=== PATIENT | female | born 1955 ===

== ENCOUNTER 2018-03-16 14:11 | Inpatient (IN) | payer MEDICARE ==
[2018-03-16 17:08] LABS: Basophils % (Auto) 0.6 % (0.0-1.8); Eosinophils # (Auto) 0.2 K/mm3 (0.0-0.4); Eosinophils % (Auto) 3.7 % (0.0-4.3); Hematocrit 25.7 % (30.3-42.9); Hemoglobin 8.4 gm/dl (10.1-14.3); Lymphocytes % (Auto) 22.6 % (13.4-35.0); Mean Corpuscular HGB Conc 33 % (30-34); Mean Corpuscular Hemoglobin 31 pg (28-32); Mean Corpuscular Volume 94 fl (79-97); Monocytes # (Auto) 0.4 K/mm3 (0.0-0.8); Monocytes % (Auto) 10.3 % (0.0-7.3); Platelet Count 224 K/mm3 (140-440); Red Blood Count 2.75 M/mm3 (3.65-5.03); Red Cell Distribution Width 16.6 % (13.2-15.2)
[2018-03-16 17:14] LABS: Calcium 9.3 mg/dL (8.4-10.2)
[2018-03-16] MEDS ORDERED: ZOFRAN IV PRN (17:22)
[2018-03-16] MEDS ORDERED: PROVENTIL IH PRN (17:22)
[2018-03-16] MEDS ORDERED: TYLENOL PO PRN (17:22)
[2018-03-16] MEDS ORDERED: SODIUM CHLORIDE FLUSH SYRINGE 10 ML IV PRN (17:22)
--- NOTE | 2018-03-16 17:28 | Emergency Department Report ---
ED General Adult HPI - General Chief complaint: High BP Stated complaint: HYPERTENSION Time Seen by Provider: 03/16/18 16:55 Source: EMS Mode of arrival: Stretcher Limitations: No Limitations - History of Present Illness Initial comments: Patient is a 62-year-old asthmatic female past medical history of end-stage renal disease who went to dialysis today but was sent to the emergency department with elevated blood pressure would not improve after 0.3 Catapres. Patient states her only symptom today is just fatigued. Patient is denying any chest pain shortness of breath at this time. Patient is here with her daughter who is in the medical field and is helping the patient give her history. Patient's daughter states that usually when she does get dialysis she is has labs that were sent home with her she does not believe on Tuesday that the patient received full dialysis. - Related Data Allergies Allergy/AdvReac Type Severity Reaction Status Date / Time No Known Allergies Allergy Unverified 03/16/18 15:10 ED Review of Systems ROS: Stated complaint: HYPERTENSION Other details as noted in HPI Comment: All other systems reviewed and negative ED Past Medical Hx - Past Medical History Previous Medical History?: Yes Hx Hypertension: Yes Hx Renal Disease: Yes ([id number]) Additional medical history: Dementia, PVD, Diabetes - Surgical History Past Surgical History?: Yes Additional Surgical History: right chest permcath - Social History Smoking Status: Former Smoker Substance Use Type: Prescribed ED Physical Exam - General Limitations: No Limitations General appearance: alert, in no apparent distress - Head Head exam: Present: atraumatic, normocephalic - Eye Eye exam: Present: normal appearance - ENT ENT exam: Present: mucous membranes moist - Neck Neck exam: Present: normal inspection - Respiratory Respiratory exam: Present: normal lung sounds bilaterally. Absent: respiratory distress, wheezes, rales, rhonchi - Cardiovascular Cardiovascular Exam: Present: regular rate, normal rhythm. Absent: systolic murmur, diastolic murmur, rubs, gallop - GI/Abdominal GI/Abdominal exam: Present: soft, normal bowel sounds. Absent: distended, tenderness, guarding, rebound - Extremities Exam Extremities exam: Present: normal inspection - Back Exam Back exam: Present: normal inspection - Neurological Exam Neurological exam: Present: alert, oriented X3 - Psychiatric Psychiatric exam: Present: normal affect, normal mood - Skin Skin exam: Present: warm, dry, intact, normal color. Absent: rash ED Course Vital Signs 03/16/18 15:27 Temperature 97.5 F L Pulse Rate 68 Respiratory 18 Rate Blood Pressure 187/103 O2 Sat by Pulse 100 Oximetry ED Medical Decision Making - Lab Data Result diagrams: 03/16/18 15:34 03/16/18 15:34 - Medical Decision Making Because of the patient's mild lethargy and the fact that she's missed dialysis at this time. Patient be admitted for probable dialysis as well as blood pressure control. Critical care attestation.: If time is entered above; I have spent that time in minutes in the direct care of this critically ill patient, excluding procedure time. ED Disposition Clinical Impression: Hypertensive urgency, malignant, ESRD (end stage renal disease) Disposition: -01 TO HOME OR SELFCARE Is pt being admited?: Yes Does the pt Need Aspirin: No Condition: Stable Referrals: PRIMARY CARE, [Primary Care Provider] - 3-5 Days
[2018-03-16] MEDS ORDERED: NON-FORMULARY (Lorazepam 1 MG) PO PRN (17:44)
--- NOTE | 2018-03-16 17:48 | History and Physical Report ---
History of Present Illness Chief complaint: she is confused, and could not get dialysis today History of present illness: 62 YO Female with HTN, ESRD on HD(T,R,Sa), DM, Dementia, PVD presents to ED for evaluation. Pt is confused and unable to provide detailed history. Pt history provided by daughter who is at bedside during exam and interview. As per daughter, the patient has become increasingly confused over the past 3 days with persistent symptoms over the same time frame. Pt went to dialysis today but was sent to the emergency department with elevated blood pressure. Pt seen and evaluated in ED and found to have ESRD, Encephalopathy. Pt admitted to medical floor. Nephrology consulted in ED for dialysis. No reports of fever, chills, CP, Palpitations, NVD, Syncope, Trauma, falls, unintentional weight loss , night sweats. Past History Past Medical History: diabetes, ESRD, hypertension, PVD Past Surgical History: Other (Left Ankle, R chest permacath) Social history: single, lives with family. denies: smoking, alcohol abuse, prescription drug abuse Family history: diabetes, hypertension Medications and Allergies Allergies Allergy/AdvReac Type Severity Reaction Status Date / Time No Known Allergies Allergy Verified 03/16/18 17:27 Home Medications Medication Instructions Recorded Confirmed Last Taken Type Aspirin 81 mg PO DAILY 03/16/18 03/16/18 Unknown History Folic Acid 1 mg PO DAILY 03/16/18 03/16/18 Unknown History ISOSORBIDE MONOnitrate 20 mg PO TID 03/16/18 03/16/18 Unknown History LORazepam 1 mg PO Q8HR PRN 03/16/18 03/16/18 Unknown History Melatonin 3 mg PO HS 03/16/18 03/16/18 Unknown History Metoprolol 25 mg PO DAILY 03/16/18 03/16/18 Unknown History NIFEdipine 90 mg PO DAILY 03/16/18 03/16/18 Unknown History Pantoprazole 40 mg PO DAILY 03/16/18 03/16/18 Unknown History Renvela 800 mg PO TID 03/16/18 03/16/18 Unknown History Sertraline 50 mg PO DAILY 03/16/18 03/16/18 Unknown History hydrALAZINE 100 mg PO TID 03/16/18 03/16/18 Unknown History Active Meds: Active Medications Acetaminophen (Tylenol) 650 mg PO Q4H PRN PRN Reason: Pain MILD(1-3)/Fever >100.5/RITTER Albuterol (Proventil) 2.5 mg IH Q4HRT PRN PRN Reason: Shortness Of Breath Miscellaneous Medication (Aspirin) 81 mg PO DAILY TONY Miscellaneous Medication (Folic Acid) 1 mg PO DAILY TONY Miscellaneous Medication (Hydralazine) 100 mg PO TID TONY Miscellaneous Medication (Isosorbide Mononitrate) 20 mg PO TID TONY Miscellaneous Medication (Lorazepam) 1 mg PO Q8HR PRN PRN Reason: Anxiety Miscellaneous Medication (Melatonin) 3 mg PO HS TONY Miscellaneous Medication (Metoprolol) 25 mg PO DAILY TONY Miscellaneous Medication (Nifedipine) 90 mg PO DAILY TONY Miscellaneous Medication (Pantoprazole) 40 mg PO DAILY TONY Miscellaneous Medication (Renvela) 800 mg PO TID TONY Miscellaneous Medication (Sertraline) 50 mg PO DAILY TONY Ondansetron HCl (Zofran) 4 mg IV Q8H PRN PRN Reason: Nausea And Vomiting Sodium Chloride (Sodium Chloride Flush Syringe 10 Ml) 10 ml IV BID TONY Sodium Chloride (Sodium Chloride Flush Syringe 10 Ml) 10 ml IV PRN PRN PRN Reason: LINE FLUSH Review of Systems ROS unobtainable: due to mental status Exam - Constitutional Vitals: Temp Pulse Resp BP Pulse Ox 97.5 F L 68 18 187/103 100 03/16/18 15:27 03/16/18 15:27 03/16/18 15:27 03/16/18 15:27 03/16/18 15:27 General appearance: Present: mild distress - EENT Eyes: Present: PERRL ENT: hearing intact, clear oral mucosa - Neck Neck: Present: supple, normal ROM - Respiratory Respiratory effort: normal Respiratory: bilateral: CTA - Cardiovascular Heart Sounds: Present: S1 & S2. Absent: rub, click - Extremities Extremities: pulses symmetrical, No edema Extremity abnormal: edema Peripheral Pulses: within normal limits - Abdominal General gastrointestinal: Present: soft, non-tender, non-distended, normal bowel sounds Female genitourinary: Present: normal - Integumentary Integumentary: Present: clear, warm, dry - Musculoskeletal Musculoskeletal: generalized weakness - Psychiatric Psychiatric: no intact judgment & insight, no memory intact - Neurologic Neurologic: CNII-XII intact, moves all extremities, no gait normal Results - Labs CBC & Chem 7: 03/16/18 15:34 03/16/18 15:34 Labs: Abnormal lab results 03/16/18 03/16/18 Range/Units 15:34 15:34 WBC 4.2 L (4.5-11.0) K/mm3 RBC 2.75 L (3.65-5.03) M/mm3 Hgb 8.4 L (10.1-14.3) gm/dl Hct 25.7 L (30.3-42.9) % RDW 16.6 H (13.2-15.2) % [place] % (Auto) 10.3 H (0.0-7.3) % Lymph # 1.0 L (1.2-5.4) K/mm3 Sodium 136 L (137-145) mmol/L Chloride 97.6 L (98-107) mmol/L BUN 24 H (7-17) mg/dL Creatinine 9.5 H (0.7-1.2) mg/dL Assessment and Plan - Patient Problems (1) ESRD (end stage renal disease) Current Visit: Yes Status: Acute Plan to address problem: Nephrology consulted for dialysis. strict I/O, monitor uop q shift, avoid nephrotoxic agents. (2) Encephalopathy Current Visit: Yes Status: Acute Plan to address problem: CT Head, neuro checks, supportive care. (3) Diabetes Current Visit: Yes Status: Acute Plan to address problem: ADA diet, insulin, accu check (4) Hypertensive urgency, malignant Current Visit: Yes Status: Acute Plan to address problem: monitor bp q shift, IV hydralazine PRN, resume prehospital antihypertensive therapy, dialysis (5) DVT prophylaxis Current Visit: Yes Status: Acute Plan to address problem: SCD to BLE while in bed
--- NOTE | 2018-03-16 18:19 | Cat Scan Report ---
FINAL REPORT EXAM: CT HEAD/BRAIN WO CON HISTORY: confusion TECHNIQUE: CT head without contrast PRIORS: None. FINDINGS: No acute intra-axial or extra-axial hemorrhage is identified. There is no evidence of midline shift or mass effect. The ventricles and sulci are within normal limits. Robles-white matter differentiation is intact. No acute parenchymal abnormalities seen. Bony calvarium is grossly intact. Visualized portions of the mastoids and paranasal sinuses are unremarkable. IMPRESSION: Negative CT head
[2018-03-16] MEDS ORDERED: ATIVAN PO PRN (18:25)
[2018-03-16 19:47] LABS: Free T4 (Free Thyroxine) 1.28 ng/dL (0.76-1.46)
[2018-03-16] MEDS ORDERED: HYDRALAZINE 100 MG PO SCH (20:00)
[2018-03-16] MEDS ORDERED: RENVELA 800 MG PO SCH (20:00)
[2018-03-16] MEDS ORDERED: ISOSORBIDE MONONITRATE 20 MG PO SCH (20:00)
[2018-03-16] MEDS ORDERED: MELATONIN 3 MG PO SCH (22:00)
[2018-03-16] MEDS: APRESOLINE PO SCH (23:32)
[2018-03-16] MEDS: SODIUM CHLORIDE FLUSH SYRINGE 10 ML IV SCH (23:33)
[2018-03-16] MEDS: MONOKET PO SCH (23:35)
[2018-03-17] MEDS: RENVELA PO SCH ×3 (09:00→18:14)
--- NOTE | 2018-03-17 09:00 | Progress Note ---
Assessment and Plan Assessment and plan: Acute encephalopathy. Etiology may be secondary to hypertensive versus metabolic. Blood pressure is much better control. Patient is to undergo hemodialysis per nephrology. Continue to treat these underlying causes. Consider neurology evaluation. Also, consider MRI or EEG if symptoms persist. CT scan of the head negative. ESRD. Continue hemodialysis per nephrology. Diabetes mellitus type 2. Continue ADA diet, sliding scale insulin and Accu- Cheks. Accelerated hypertension. Improved. Continue home antihypertensive medications and IV hydralazine when necessary. DVT prophylaxis. Continue SCDs. History Interval history: No new issues overnight. Patient is alert and oriented 3. Confusion has resolved. Hospitalist Physical - Constitutional Vitals: Temp Pulse Resp BP Pulse Ox 98.6 F 77 20 145/84 97 03/17/18 05:24 03/17/18 05:24 03/17/18 05:24 03/17/18 07:43 03/17/18 05:24 General appearance: Present: no acute distress - EENT Eyes: Present: PERRL, EOM intact ENT: hearing intact, clear oral mucosa, dentition normal - Neck Neck: Present: supple, normal ROM - Respiratory Respiratory effort: normal Respiratory: bilateral: CTA - Cardiovascular Rhythm: regular Heart Sounds: Present: S1 & S2. Absent: gallop, rub - Extremities Extremities: no ischemia, No edema, Full ROM - Abdominal General gastrointestinal: soft, non-tender, non-distended, normal bowel sounds - Integumentary Integumentary: Present: clear, warm, dry - Neurologic Neurologic: CNII-XII intact, moves all extremities Results - Labs CBC & Chem 7: 03/16/18 15:34 03/16/18 15:34 Labs: Laboratory Last Values WBC 4.2 K/mm3 (4.5-11.0) L 03/16/18 15:34 RBC 2.75 M/mm3 (3.65-5.03) L 03/16/18 15:34 Hgb 8.4 gm/dl (10.1-14.3) L 03/16/18 15:34 Hct 25.7 % (30.3-42.9) L 03/16/18 15:34 MCV 94 fl (79-97) 03/16/18 15:34 MCH 31 pg (28-32) 03/16/18 15:34 MCHC 33 % (30-34) 03/16/18 15:34 RDW 16.6 % (13.2-15.2) H 03/16/18 15:34 Plt Count 224 K/mm3 (140-440) 03/16/18 15:34 Lymph % (Auto) 22.6 % (13.4-35.0) 03/16/18 15:34 [place] % (Auto) 10.3 % (0.0-7.3) H 03/16/18 15:34 Eos % (Auto) 3.7 % (0.0-4.3) 03/16/18 15:34 Baso % (Auto) 0.6 % (0.0-1.8) 03/16/18 15:34 Lymph # 1.0 K/mm3 (1.2-5.4) L 03/16/18 15:34 [place] # 0.4 K/mm3 (0.0-0.8) 03/16/18 15:34 Eos # 0.2 K/mm3 (0.0-0.4) 03/16/18 15:34 Baso # 0.0 K/mm3 (0.0-0.1) 03/16/18 15:34 Seg Neutrophils % 62.8 % (40.0-70.0) 03/16/18 15:34 Seg Neutrophils # 2.6 K/mm3 (1.8-7.7) 03/16/18 15:34 Sodium 136 mmol/L (137-145) L 03/16/18 15:34 Potassium 4.5 mmol/L (3.6-5.0) 03/16/18 15:34 Chloride 97.6 mmol/L (98-107) L 03/16/18 15:34 Carbon Dioxide 25 mmol/L (22-30) 03/16/18 15:34 Anion Gap 18 mmol/L 03/16/18 15:34 BUN 24 mg/dL (7-17) H 03/16/18 15:34 Creatinine 9.5 mg/dL (0.7-1.2) H 03/16/18 15:34 Estimated GFR 4 ml/min 03/16/18 15:34 BUN/Creatinine Ratio 3 % 03/16/18 15:34 Glucose 91 mg/dL (65-100) 03/16/18 15:34 Calcium 9.3 mg/dL (8.4-10.2) 03/16/18 15:34 TSH 1.080 mlU/mL (0.270-4.200) 03/16/18 17:50 Free T4 1.28 ng/dL (0.76-1.46) 03/16/18 17:50
[2018-03-17] MEDS: APRESOLINE PO SCH ×3 (09:15→21:16)
[2018-03-17] MEDS: MONOKET PO SCH ×3 (09:15→21:16)
[2018-03-17] MEDS ORDERED: NON-FORMULARY (Metoprolol 25 MG) PO SCH (10:00)
[2018-03-17] MEDS ORDERED: NON-FORMULARY (Folic Acid 1 MG) PO SCH (10:00)
[2018-03-17] MEDS ORDERED: NON-FORMULARY (Aspirin 81 MG) PO SCH (10:00)
[2018-03-17] MEDS ORDERED: NIFEDIPINE 90 MG PO SCH (10:00)
[2018-03-17] MEDS ORDERED: NON-FORMULARY (Pantoprazole 40 MG) PO SCH (10:00)
[2018-03-17] MEDS ORDERED: SERTRALINE 50 MG PO SCH (10:00)
[2018-03-17] MEDS ORDERED: NACL 0.9% 100 ML IV PRN (10:41)
--- NOTE | 2018-03-17 10:44 | Consultation ---
History of Present Illness - Reason for Consult Consult date: 03/17/18 end stage renal disease - History of Present Illness Patient is a 62-year-old female w/ ESRD on HD TTS who presented to the ED from dialysis clinic due to significanly elevated blood pressure which did not improve with Clonidine. Patient has been admitted for further management. She is seen on dialysis and denies chest pain, SOB. Past History Past Medical History: diabetes, ESRD, hypertension, PVD Past Surgical History: Other (Left Ankle, R chest permacath) Social history: single, lives with family. denies: smoking, alcohol abuse, prescription drug abuse Family history: diabetes, hypertension Medications and Allergies Allergies Allergy/AdvReac Type Severity Reaction Status Date / Time No Known Allergies Allergy Verified 03/16/18 17:27 Home Medications Medication Instructions Recorded Confirmed Last Taken Type Aspirin 81 mg PO DAILY 03/16/18 03/16/18 Unknown History Folic Acid 1 mg PO DAILY 03/16/18 03/16/18 Unknown History ISOSORBIDE MONOnitrate 20 mg PO TID 03/16/18 03/16/18 Unknown History LORazepam 1 mg PO Q8HR PRN 03/16/18 03/16/18 Unknown History Melatonin 3 mg PO HS 03/16/18 03/16/18 Unknown History Metoprolol 25 mg PO DAILY 03/16/18 03/16/18 Unknown History NIFEdipine 90 mg PO DAILY 03/16/18 03/16/18 Unknown History Pantoprazole 40 mg PO DAILY 03/16/18 03/16/18 Unknown History Renvela 800 mg PO TID 03/16/18 03/16/18 Unknown History Sertraline 50 mg PO DAILY 03/16/18 03/16/18 Unknown History hydrALAZINE 100 mg PO TID 03/16/18 03/16/18 Unknown History Active Meds: Active Medications Acetaminophen (Tylenol) 650 mg PO Q4H PRN PRN Reason: Pain MILD(1-3)/Fever >100.5/RITTER Albuterol (Proventil) 2.5 mg IH Q4HRT PRN PRN Reason: Shortness Of Breath Aspirin (Baby Aspirin) 81 mg PO QDAY [facility] Folic Acid (Folvite) 1 mg PO DAILY [facility] Hydralazine HCl (Apresoline) 100 mg PO TID [facility] Last Admin: 06/29/18 09:15 Dose: 100 mg Isosorbide Mononitrate (Monoket) 20 mg PO TID [facility] Last Admin: 03/17/18 09:15 Dose: 20 mg Lorazepam (Ativan) 1 mg PO Q8H PRN PRN Reason: Agitation Metoprolol Tartrate (Lopressor) 25 mg PO DAILY [facility] Nifedipine (Procardia Xl) 90 mg PO QDAY [facility] Ondansetron HCl (Zofran) 4 mg IV Q8H PRN PRN Reason: Nausea And Vomiting Pantoprazole Sodium (Protonix) 40 mg PO DAILY [facility] Sertraline HCl (Zoloft) 50 mg PO QDAY [facility] Sevelamer Carbonate (Renvela) 800 mg PO AC [facility] Last Admin: 03/17/18 09:00 Dose: Not Given Sodium Chloride (Sodium Chloride Flush Syringe 10 Ml) 10 ml IV BID [facility] Last Admin: 03/16/18 23:33 Dose: 10 ml Sodium Chloride (Sodium Chloride Flush Syringe 10 Ml) 10 ml IV PRN PRN PRN Reason: LINE FLUSH Review of Systems All systems: negative Exam - Vital Signs Vital signs: Vital Signs Temp Pulse Resp BP Pulse Ox 97.5 F L 68 18 187/103 100 03/16/18 15:27 03/16/18 15:27 03/16/18 15:27 03/16/18 15:27 03/16/18 15:27 - General Appearance General appearance: well-developed, well-nourished EENT: ATNC Respiratory: Clear to Ascultation Heart: regular, S1S2 Gastrointestinal: Present: normal. Absent: tenderness, distended Integumentary: no rash, warm and dry Musculoskeletal: Present: other (no edema) Psychiatric: cooperative Results - Lab Results 03/16/18 15:34 03/16/18 15:34 Most recent lab results Calcium 9.3 mg/dL (8.4-10.2) 03/16/18 15:34 Assessment and Plan Impression * End stage renal disease * Hypertension, uncontrolled * Anemia secondary to ESRD * Secondary hyperparathyroidism Plan: * Hemodialysis today - UF as tolerated * Resume TTS schedule tomorrow * Continue current antiHTN medications - BP elevated this afternoon as patient has not received mediations * Hold Epogen for now due to uncontrolled HTN * Renal diet * Binders with meals
[2018-03-17] MEDS: BABY ASPIRIN PO SCH (11:36)
[2018-03-17] MEDS: FOLVITE PO SCH (11:37)
[2018-03-17] MEDS: LOPRESSOR PO SCH ×2 (11:37→18:14)
[2018-03-17] MEDS: PROCARDIA XL PO SCH ×2 (11:37→18:14)
[2018-03-17] MEDS: PROTONIX PO SCH (11:39)
[2018-03-17] MEDS: SODIUM CHLORIDE FLUSH SYRINGE 10 ML IV SCH ×2 (11:39→21:16)
[2018-03-17] MEDS: ZOLOFT PO SCH (11:41)
[2018-03-17] MEDS ORDERED: APRESOLINE IV PRN (12:41)
[2018-03-17] MEDS ORDERED: NACL 0.9 (PRIMING MACHINE ONLY DIALYSIS) MC ONE (12:58)
[2018-03-18] MEDS: MONOKET PO SCH (08:25)
[2018-03-18] MEDS: RENVELA PO SCH ×2 (08:25→12:57)
[2018-03-18] MEDS: APRESOLINE PO SCH (08:25)
--- NOTE | 2018-03-18 10:24 | Discharge Summary ---
Providers - Providers Date of Admission: 03/16/18 17:22 Date of discharge: 03/18/18 Attending physician: HARPER OSHEA 03/17/18 09:41 Consult to Physician [CONS] Routine Comment: CALLED-COMPLETED LINDA Consulting Provider: DUNIA GOMEZ Physician Instructions: Followed by . Reason For Exam: ESRD Primary care physician: ASSESSOR Hospitalization Reason for admission: AMS Condition: Stable Hospital course: 62 YO Female with HTN, ESRD on HD(T,R,Sa), DM, Dementia, PVD presented to ED with confusion. 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 Pt went to dialysis but was sent to the emergency department with elevated blood pressure. Pt was seen and evaluated in ED and found to have ESRD , Encephalopathy. Pt admitted to medical floor. Nephrology consulted in ED for dialysis. Etiology was likely secondary to hypertensive versus metabolic. Symptoms resolved wi9th improvement of BP and after HD. The patient is felt to have received maximal hospital benefit and will be discharged home. Dedicated discharge time 32 minutes. Disposition: DC-01 TO HOME OR SELFCARE Time spent for discharge: 32 - Discharge Diagnoses (1) DVT prophylaxis Status: Acute (2) Diabetes Status: Acute (3) ESRD (end stage renal disease) Status: Acute (4) Encephalopathy Status: Acute (5) Hypertensive urgency, malignant Status: Acute Core Measure Documentation - Palliative Care Palliative Care/ Comfort Measures: Not Applicable - Core Measures Any of the following diagnoses?: none Exam - Constitutional Vitals: Temp Pulse Resp BP Pulse Ox 98.4 F 73 20 157/95 94 03/18/18 05:19 03/18/18 05:19 03/18/18 05:19 03/18/18 05:19 03/18/18 05:19 General appearance: Present: no acute distress, well-nourished - EENT Eyes: Present: PERRL ENT: hearing intact, clear oral mucosa - Neck Neck: Present: supple, normal ROM - Respiratory Respiratory effort: normal Respiratory: bilateral: CTA - Cardiovascular Heart Sounds: Present: S1 & S2. Absent: rub, click - Extremities Extremities: pulses symmetrical, No edema Peripheral Pulses: within normal limits - Abdominal General gastrointestinal: Present: soft, non-tender, non-distended, normal bowel sounds Female genitourinary: Present: normal - Integumentary Integumentary: Present: clear, warm, dry - Musculoskeletal Musculoskeletal: gait normal, strength equal bilaterally - Psychiatric Psychiatric: appropriate mood/affect, intact judgment & insight - Neurologic Neurologic: CNII-XII intact, moves all extremities Plan Activity: no restrictions Weight Bearing Status: Full Weight Bearing Diet: diabetic, renal Follow up with: PRIMARY CARE, [Primary Care Provider] - 3-5 Days ELO STAHL MD [Staff Physician] - 7 Days Prescriptions: Aspirin 81 mg PO DAILY #30 Folic Acid 1 mg PO DAILY #30 hydrALAZINE 100 mg PO TID #90 ISOSORBIDE MONOnitrate 20 mg PO TID #90 Metoprolol 25 mg PO DAILY #30 NIFEdipine 90 mg PO DAILY #30
[2018-03-18] MEDS: BABY ASPIRIN PO SCH (10:27)
--- NOTE | 2018-03-18 10:53 | Progress Note ---
Subjective Interval history: Patient was seen today for follow-up on multiple renal related issues Events of this hospitalization noted Patient denies having any chest pain pressure or shortness of breath Vitals labs intake output medications were reviewed Social history: Reviewed Allergies: Reviewed Family history: Reviewed Physical examination HEENT: Oral mucosa moist no pallor or icterus Neck: Supple no JVD Chest: Clear to auscultation anteriorly CVS: Regular rate and rhythm S1 and S2 heard Abdomen: Soft nontender no suprapubic masses no organomegaly appreciable Extremity: Dry skin less than 1+ peripheral edema Musculoskeletal: No joint effusion noted in knees and ankle Neurological: Alert awake Dermatology: No petechial rashes Psychiatry: No evidence of any agitation and aggression noted Assessment and plan End-stage renal disease: Currently in maintenance hemodialysis, tolerating dialysis treatment well Uncontrolled hypertension: Counseled and educated discussed about her compliance medications, she will need a follow-up appointment in the office, upon discharge to monitor her blood pressure also needs to monitor her blood pressure from home Consequences of untreated hypertension were discussed with patient in terms of adverse cardiovascular and cerebrovascular events including Anemia in end-stage renal disease to monitor and follow, at the dialysis clinic patient has been adequately counseled and educated regarding all the dialysis related issues advised to educate herself Patient was adequately counseled and educated regarding multiple renal related issues Pertinent lab findings were discussed with patient, patient does exhibit good understanding of renal issues We'll continue to follow and make recommendation from renal standpoint Objective - Vital Signs Vital signs: Vital Signs - 12hr 03/17/18 03/18/18 23:17 05:19 Temperature 99.0 F 98.4 F Pulse Rate 77 73 Respiratory 20 20 Rate Blood Pressure 132/78 157/95 O2 Sat by Pulse 98 94 Oximetry - Lab 03/16/18 15:34 03/16/18 15:34 Most recent lab results Calcium 9.3 mg/dL (8.4-10.2) 03/16/18 15:34
[2018-03-18] MEDS: FOLVITE PO SCH (11:07)
[2018-03-18] MEDS: PROCARDIA XL PO SCH (11:07)
[2018-03-18] MEDS: LOPRESSOR PO SCH (11:07)
[2018-03-18] MEDS: PROTONIX PO SCH (11:08)
[2018-03-18] MEDS: ZOLOFT PO SCH (11:08)
[2018-03-18] MEDS: SODIUM CHLORIDE FLUSH SYRINGE 10 ML IV SCH (11:09)
[2018-03-18 14:07] VITALS: BP 172/106
== END 2018-03-18 13:00 | disposition home or self-care (01) | DRG 77 ==
LOC: ED 14:11 → 3A 17:22
PROVIDERS: ADMIT Internal Medicine; ATTEND Hospitalist
PROC: 5A1D70Z Performance of Urinary Filtration, Intermittent, Less than 6 Hours Per Day (ICD-10-PCS; principal; 2018-03-17)
DX: I67.4 Hypertensive encephalopathy (principal); N18.6 End stage renal disease; I12.0 Hypertensive chronic kidney disease with stage 5 chronic kidney disease or end stage renal disease; N25.81 Secondary hyperparathyroidism of renal origin; D63.1 Anemia in chronic kidney disease; E11.22 Type 2 diabetes mellitus with diabetic chronic kidney disease; I16.0 Hypertensive urgency; Z82.49 Family history of ischemic heart disease and other diseases of the circulatory system; Z95.828 Presence of other vascular implants and grafts; Z79.82 Long term (current) use of aspirin; Z99.2 Dependence on renal dialysis; Z79.84 Long term (current) use of oral hypoglycemic drugs
CPT/HCPCS: 36415; 70450; 80048; 84439; 84443; 85025; J0360; J7030

== ENCOUNTER 2018-04-25 16:33 | Emergency (ER) | payer MEDICARE ==
[2018-04-25 17:10] VITALS: BP 176/84
== END 2018-04-25 17:20 | disposition left against medical advice (07) ==
LOC: ED 16:33
DX: R03.0 Elevated blood-pressure reading, without diagnosis of hypertension (principal); Z53.21 Procedure and treatment not carried out due to patient leaving prior to being seen by health care provider

== ENCOUNTER 2019-01-15 19:35 | Inpatient (IN) | payer MEDICARE ==
[2019-01-15] MEDS ORDERED: TRIDIL DRIP 50MG/250ML 50 MG/250 ML BOTTLE IV ONE (20:24)
--- NOTE | 2019-01-15 20:25 | Emergency Department Report ---
ED Shortness of Breath HPI - General Chief Complaint: Dyspnea/Respdistress Stated Complaint: AMINATA Time Seen by Provider: 01/15/19 20:19 Source: patient, EMS (ems notes not available at time of chart dictation), RN notes reviewed Mode of arrival: Stretcher Limitations: Physical Limitation - History of Present Illness Initial Comments: Primary care Dr.: Dr. Jarad Lanier Nephrology: Dr. Lomeli Past medical history: End-stage renal disease, on dialysis, diabetes, hypertension, peripheral vascular disease, right upper extremity graft This is a pleasant 63-year-old female who resides in a local halfway, who missed dialysis for 2 days, who presents to the emergency room with painless shortness of breath. Symptoms constant, worse with physical exertion, decreased with rest and lying flat. Patient denies headache, neck pain, chest pain, abdominal pain, urinary symptoms, focal extremity weakness, numbness. She reports her symptoms are similar to prior incidents when she's has missed dialysis MD Complaint: shortness of breath -: Gradual, days(s) Consistency: other Improves With: other - Related Data Home Medications Medication Instructions Recorded Confirmed Last Taken LORazepam 1 mg PO Q8HR PRN 03/16/18 03/16/18 Unknown Melatonin 3 mg PO HS 03/16/18 03/16/18 Unknown Pantoprazole 40 mg PO DAILY 03/16/18 03/16/18 Unknown Renvela 800 mg PO TID 03/16/18 03/16/18 Unknown Sertraline 50 mg PO DAILY 03/16/18 03/16/18 Unknown Previous Rx's Medication Instructions Recorded Last Taken Type Aspirin 81 mg PO DAILY #30 03/18/18 Unknown Rx Aspirin [Aspirin BABY CHEW TAB] 81 mg PO QDAY tab.chew 03/18/18 Unknown Rx Folic Acid 1 mg PO DAILY #30 03/18/18 Unknown Rx Folic Acid [Folvite] 1 mg PO DAILY tablet 03/18/18 Unknown Rx ISOSORBIDE MONOnitrate 20 mg PO TID #90 03/18/18 Unknown Rx ISOSORBIDE MONOnitrate [Monoket] 20 mg PO TID tablet 03/18/18 Unknown Rx LORazepam [Ativan] 1 mg PO Q8H PRN tablet 03/18/18 Unknown Rx Metoprolol 25 mg PO DAILY #30 03/18/18 Unknown Rx Metoprolol [Lopressor TAB] 25 mg PO DAILY tablet 03/18/18 Unknown Rx NIFEdipine 90 mg PO DAILY #30 03/18/18 Unknown Rx NIFEdipine XL [Procardia Xl] 90 mg PO QDAY tablet 03/18/18 Unknown Rx Sertraline [Zoloft] 50 mg PO QDAY tablet 03/18/18 Unknown Rx Sevelamer Carbonate [Renvela] 800 mg PO AC tablet 03/18/18 Unknown Rx Sodium Chloride 0.9% Int [Sodium 10 ml IV BID syringe 03/18/18 Unknown Rx Chloride Flush Syringe 10 ml] Sodium Chloride 0.9% Int [Sodium 10 ml IV PRN PRN syringe 03/18/18 Unknown Rx Chloride Flush Syringe 10 ml] hydrALAZINE 100 mg PO TID #90 03/18/18 Unknown Rx hydrALAZINE [Apresoline TAB] 100 mg PO TID tab 03/18/18 Unknown Rx Allergies Allergy/AdvReac Type Severity Reaction Status Date / Time No Known Allergies Allergy Verified 03/16/18 17:27 ED Review of Systems ROS: Stated complaint: AMINATA Other details as noted in HPI Constitutional: malaise. denies: fever Eyes: denies: eye discharge ENT: congestion Respiratory: shortness of breath, SOB with exertion, SOB at rest Cardiovascular: edema. denies: chest pain Gastrointestinal: denies: abdominal pain Genitourinary: denies: dysuria Musculoskeletal: denies: back pain Skin: denies: lesions Neurological: weakness Psychiatric: denies: anxiety ED Past Medical Hx - Past Medical History Previous Medical History?: Yes Hx Hypertension: Yes Hx Congestive Heart Failure: No Hx Diabetes: Yes Hx Renal Disease: Yes ([id number]) Hx Asthma: No Hx COPD: No Additional medical history: Dementia, PVD, Diabetes - Surgical History Past Surgical History?: Yes Additional Surgical History: right chest permcath - Social History Smoking Status: Former Smoker Substance Use Type: None - Medications Home Medications: Home Medications Medication Instructions Recorded Confirmed Last Taken Type LORazepam 1 mg PO Q8HR PRN 03/16/18 03/16/18 Unknown History Melatonin 3 mg PO HS 03/16/18 03/16/18 Unknown History Pantoprazole 40 mg PO DAILY 03/16/18 03/16/18 Unknown History Renvela 800 mg PO TID 03/16/18 03/16/18 Unknown History Sertraline 50 mg PO DAILY 03/16/18 03/16/18 Unknown History Aspirin 81 mg PO DAILY #30 03/18/18 Unknown Rx Aspirin [Aspirin BABY CHEW TAB] 81 mg PO QDAY tab.chew 03/18/18 Unknown Rx Folic Acid 1 mg PO DAILY #30 03/18/18 Unknown Rx Folic Acid [Folvite] 1 mg PO DAILY tablet 03/18/18 Unknown Rx ISOSORBIDE MONOnitrate 20 mg PO TID #90 03/18/18 Unknown Rx ISOSORBIDE MONOnitrate [Monoket] 20 mg PO TID tablet 03/18/18 Unknown Rx LORazepam [Ativan] 1 mg PO Q8H PRN tablet 03/18/18 Unknown Rx Metoprolol 25 mg PO DAILY #30 03/18/18 Unknown Rx Metoprolol [Lopressor TAB] 25 mg PO DAILY tablet 03/18/18 Unknown Rx NIFEdipine 90 mg PO DAILY #30 03/18/18 Unknown Rx NIFEdipine XL [Procardia Xl] 90 mg PO QDAY tablet 03/18/18 Unknown Rx Sertraline [Zoloft] 50 mg PO QDAY tablet 03/18/18 Unknown Rx Sevelamer Carbonate [Renvela] 800 mg PO AC tablet 03/18/18 Unknown Rx Sodium Chloride 0.9% Int [Sodium 10 ml IV BID syringe 03/18/18 Unknown Rx Chloride Flush Syringe 10 ml] Sodium Chloride 0.9% Int [Sodium 10 ml IV PRN PRN syringe 03/18/18 Unknown Rx Chloride Flush Syringe 10 ml] hydrALAZINE 100 mg PO TID #90 03/18/18 Unknown Rx hydrALAZINE [Apresoline TAB] 100 mg PO TID tab 03/18/18 Unknown Rx ED Physical Exam - General Limitations: Physical Limitation General appearance: alert, in no apparent distress - Head Head exam: Present: atraumatic, normocephalic - Eye Eye exam: Present: normal appearance, EOMI. Absent: nystagmus - ENT ENT exam: Present: normal exam, normal orophraynx, mucous membranes moist, normal external ear exam - Neck Neck exam: Present: normal inspection, full ROM, other (jugular venous distention is noted bilaterally). Absent: tenderness, meningismus - Respiratory Respiratory exam: Present: respiratory distress, rales - Cardiovascular Cardiovascular Exam: Present: normal rhythm, tachycardia, normal heart sounds. Absent: systolic murmur, diastolic murmur, rubs, gallop - GI/Abdominal GI/Abdominal exam: Present: soft. Absent: distended, tenderness, guarding, rebound, rigid - Extremities Exam Extremities exam: Present: normal inspection (there is a right upper extremity graft noted, with no redness, pus or streaking), full ROM, pedal edema, other (2+ pulses noted in the bilateral upper, lower extremities. Compartments soft. No long bony tenderness. The pelvis is stable.). Absent: calf tenderness - Back Exam Back exam: Present: normal inspection, full ROM. Absent: CVA tenderness (R), CVA tenderness (L), paraspinal tenderness, vertebral tenderness - Neurological Exam Neurological exam: Present: alert, other (Extraocular movements intact. Tongue midline. No facial droop. Facial sensation intact to light touch in the V1, V2, V3 distribution bilaterally. 5 and 5 strength in 4 extremities.. Sensation is intact to light touch in 4 extremities.) - Psychiatric Psychiatric exam: Present: normal affect, normal mood - Skin Skin exam: Present: warm, dry, intact, normal color. Absent: rash ED Course Vital Signs 01/15/19 01/15/19 01/15/19 19:46 19:51 20:00 Temperature 99.4 F Pulse Rate 105 H 104 H Respiratory 28 H 22 Rate Blood Pressure 207/123 207/123 Blood Pressure 207/123 [Left] O2 Sat by Pulse 98 98 97 Oximetry 01/15/19 21:00 Temperature Pulse Rate 103 H Respiratory 22 Rate Blood Pressure 239/144 Blood Pressure [Left] O2 Sat by Pulse 97 Oximetry ED Medical Decision Making - Lab Data Result diagrams: 01/15/19 20:36 01/15/19 20:36 Vital Signs 01/15/19 01/15/19 01/15/19 19:46 19:51 20:00 Temperature 99.4 F Pulse Rate 105 H 104 H Respiratory 28 H 22 Rate Blood Pressure 207/123 207/123 Blood Pressure 207/123 [Left] O2 Sat by Pulse 98 98 97 Oximetry 01/15/19 21:00 Temperature Pulse Rate 103 H Respiratory 22 Rate Blood Pressure 239/144 Blood Pressure [Left] O2 Sat by Pulse 97 Oximetry Lab Results 01/15/19 01/15/19 01/15/19 Range/Units 20:36 20:36 20:36 WBC 6.4 (4.5-11.0) K/mm3 RBC 3.68 (3.65-5.03) M/mm3 Hgb 10.7 (10.1-14.3) gm/dl Hct 32.4 (30.3-42.9) % MCV 88 (79-97) fl MCH 29 (28-32) pg MCHC 33 (30-34) % RDW 18.2 H (13.2-15.2) % Plt Count 232 (140-440) K/mm3 PT 14.2 (12.2-14.9) Sec. INR 1.04 (0.87-1.13) Sodium 132 L (137-145) mmol/L Potassium 6.5 H* (3.6-5.0) mmol/L Chloride 96.4 L (98-107) mmol/L Carbon Dioxide 17 L (22-30) mmol/L Anion Gap 25 mmol/L BUN 86 H (7-17) mg/dL Creatinine 17.2 H (0.7-1.2) mg/dL Estimated GFR 2 ml/min BUN/Creatinine Ratio 5 % Glucose 87 (65-100) mg/dL Calcium 10.4 H (8.4-10.2) mg/dL Phosphorus 6.20 H (2.5-4.5) mg/dL Magnesium 2.50 H (1.7-2.3) mg/dL - EKG Data -: EKG Interpreted by Me Rate: tachycardia - Radiology Data Radiology results: image reviewed interpreted by me: X-ray the chest shows pulmonary vascular congestion, fluid overload, enlarged cardiac silhouette - Medical Decision Making Differential diagnosis, including not limited to: Hyperkalemia, azotemia, uremia, fluid overload, dialysis noncompliance Assessment and plan: 63-year-old female, who has reported missing 2 dialysis sessions, with evidence of fluid overload, and elected to light derangement, manifested by crackles, rales, hypertension, azotemia, uremia, and hyperkalemia. The patient was started on a nitroglycerin drip for respiratory support and for blood pressure control. Her hyperkalemia will be treated medically. Contacted nephrology on-call, Dr. Cameron Garcia, who is currently evaluating the patient, and presumably will order emergent dialysis. Case presented to the Hospital physician, Dr. Benjamin, who has accepted the patient to the medical service. Critical Care Time: Yes Critical care time in (mins) excluding proc time.: 60 Critical care attestation.: If time is entered above; I have spent that time in minutes in the direct care of this critically ill patient, excluding procedure time. ED Disposition Clinical Impression: Hypertensive urgency, malignant, ESRD (end stage renal disease), Hyperkalemia Disposition: 09 OP ADMIT IP TO THIS HOSP Is pt being admited?: Yes Condition: Fair Referrals: PRIMARY CARE, [Primary Care Provider] - 3-5 Days
[2019-01-15 20:53] LABS: Hematocrit 32.4 % (30.3-42.9); Hemoglobin 10.7 gm/dl (10.1-14.3); Mean Corpuscular HGB Conc 33 % (30-34); Mean Corpuscular Volume 88 fl (79-97); Platelet Count 232 K/mm3 (140-440); Red Blood Count 3.68 M/mm3 (3.65-5.03); Red Cell Distribution Width 18.2 % (13.2-15.2)
[2019-01-15 21:06] LABS: INR 1.04 (0.87-1.13)
[2019-01-15 21:08] LABS: Calcium 10.4 mg/dL (8.4-10.2)
[2019-01-15] MEDS ORDERED: HumuLIN R IV ONE (21:13)
[2019-01-15] MEDS ORDERED: KIONEX PO ONE (21:13)
[2019-01-15] MEDS ORDERED: CALCIUM GLUCONATE 1,000 MG in NACL 0.9% 100 ML IV ONE (21:13)
[2019-01-15] MEDS ORDERED: D50W (25GM) Syringe IV ONE (21:13)
--- NOTE | 2019-01-15 22:11 | XRay Report ---
PROCEDURE: XR CHEST 1V AP HISTORY: chf FINDINGS: Single frontal view of the chest was acquired. The heart is mildly large. There is mild pul monary edema. There is a tortuous aorta. There is no consolidative pulmonary infiltrate. IMPRESSION: Cardiomegaly and mild pulmonary edema This document is electronically signed by Jordon Rios MD., January 15 2019 10:09:43 PM ET
[2019-01-15] MEDS ORDERED: ZOFRAN IV PRN (22:18)
[2019-01-15] MEDS ORDERED: TYLENOL PO PRN (22:18)
[2019-01-15] MEDS ORDERED: RESTORIL PO PRN (22:20)
[2019-01-15] MEDS ORDERED: D50W (25GM) Syringe IV PRN (22:22)
[2019-01-15] MEDS ORDERED: ATIVAN PO PRN (22:24)
--- NOTE | 2019-01-15 22:27 | Consultation ---
History of Present Illness - Reason for Consult end stage renal disease - History of Present Illness 63 year old with medical history of ESRD on hemodialysis, HTN presenting to the hospital with complaints of missed hemodialysis for the past few days . She is at [facility] and presents to the ER via a Right arm AVF for elevated blood pressure following missed HD. . She reports orthopnea or PND. Denies any chest pain or cough .last dialysis appears to be . Labs notable for K : 6.5 , and elevated BP: 239/144, was started on nitroglycerin infusion and has received hyperkalemia protocoal Medications and Allergies Allergies Allergy/AdvReac Type Severity Reaction Status Date / Time No Known Allergies Allergy Verified 03/16/18 17:27 Home Medications Medication Instructions Recorded Confirmed Last Taken Type LORazepam [Ativan] 1 mg PO Q8H PRN tablet 03/18/18 01/15/19 Unknown Rx Sevelamer Carbonate [Renvela] 800 mg PO AC tablet 03/18/18 01/15/19 Unknown Rx Minoxidil [Loniten] 2.5 mg PO BID 01/15/19 01/15/19 Unknown History cloNIDine [Catapres] 0.1 mg PO Q8HR 01/15/19 01/15/19 Unknown History Active Meds: Active Medications Nitroglycerin/Dextrose (Tridil Drip 50mg/250ml) 50 mg in 250 mls @ 3 mls/hr IV TITR ONE; Protocol Stop: 01/19/19 07:43 Last Titration: 01/15/19 21:20 Dose: 35 mcg/min, 10.5 mls/hr Documented by: Review of Systems Constitutional: weight gain, no weight loss Ears, nose, mouth and throat: no deferred, no ear pain Breasts: no deferred Cardiovascular: orthopnea, edema, shortness of breath, no chest pain, no rapid/irregular heart beat Respiratory: no cough Gastrointestinal: no abdominal pain, no nausea Musculoskeletal: no neck stiffness, no neck pain Integumentary: no deferred, no rash Endocrine: no cold intolerance, no heat intolerance Hematologic/Lymphatic: no easy bruising Allergic/Immunologic: no urticaria Exam - Vital Signs Vital signs: Vital Signs Temp Pulse Resp BP Pulse Ox 99.4 F 105 H 28 H 207/123 99 01/15/19 19:46 01/15/19 19:46 01/15/19 19:46 01/15/19 19:46 01/15/19 19:46 EENT: ATNC, PERRL, mucous membranes moist Neck: Present: neck supple Respiratory: Decreased Breath Sounds Heart: regular, S1S2 Gastrointestinal: Present: normal, normoactive bowel sounds Integumentary: no rash Neurologic: alert and oriented x3, CN 3-12 intact Musculoskeletal: Absent: clubbing, joint swelling Psychiatric: mood/affect appropriate Results - Lab Results 01/15/19 20:36 01/15/19 20:36 Most recent lab results Calcium 10.4 mg/dL (8.4-10.2) H 01/15/19 20:36 Phosphorus 6.20 mg/dL (2.5-4.5) H 01/15/19 20:36 Magnesium 2.50 mg/dL (1.7-2.3) H 01/15/19 20:36 - Image Kidney/bladder ultrasound: other (I reviewed CXR with pulmonary edmea.) Assessment and Plan - Patient Problems (1) Volume overload Current Visit: Yes Status: Acute Plan to address problem: volume overload 2/2 renal failure CXR with pulmonary edema following missed dialysis UF goal : 3-4L Will initiate HD. (2) Hypertensive urgency, malignant Current Visit: Yes Status: Acute Plan to address problem: Hypertensive urgency -on nitroglycerin infusion - Will optimize volume status with HD. start oral meds. (3) ESRD (end stage renal disease) Current Visit: Yes Status: Acute Plan to address problem: ESRD on hemodialysis access : Right AVf will initiate HD . (4) Hyperkalemia Current Visit: Yes Status: Acute Plan to address problem: Severe hyperkalemia K: 6.5 received calcium gluconate , kayexalte ,sodium bicarb Will initate HD as well.
[2019-01-15] MEDS ORDERED: NACL 0.9% 100 ML IV PRN (22:46)
[2019-01-16 00:02] LABS: Hepatitis B Surface Antigen Non-Reactive (Negative); Hepatitis C Virus Antibody Reactive (NonReactive)
--- NOTE | 2019-01-16 03:55 | History and Physical Report ---
CHIEF COMPLAINT: Shortness of breath. HISTORY OF PRESENT ILLNESS: The patient is a 63-year-old female with end-stage renal disease, on dialysis who says she missed her dialysis on Tuesday and has been having shortness of breath since then. The shortness of breath is worse with exertion and better with rest. The patient denies history of chest pain, denied history of fever or chills, denied history of headache, dizziness, and also denies history of nausea and vomiting. PAST MEDICAL HISTORY: Pertinent for hypertension, diabetes mellitus, end-stage renal disease, on dialysis on Tuesday, , and Tuesday. Also, the patient has past medical history of dementia and peripheral vascular disease. PAST SURGICAL HISTORY: Pertinent for right chest Perm-A-cath. FAMILY HISTORY: Noncontributory. SOCIAL HISTORY: The patient is a former cigarette smoker. Does not smoke currently, does not drink alcohol, and does not use illicit drugs. MEDICATIONS: The patient is on lorazepam 1 mg by mouth every 8 hours as needed for anxiety, melatonin 3 mg by mouth, pantoprazole 40 mg daily, Renvela 800 mg 3 times daily, sertraline 50 mg by mouth daily, aspirin 81 mg by mouth daily, folic acid 1 mg by mouth daily, isosorbide mononitrate 20 mg by mouth 3 times daily, metoprolol 25 mg by mouth daily, nifedipine 90 mg by mouth daily, sodium chloride . The patient is on hydralazine 100 mg by mouth 3 times daily. ALLERGIES: There are no known drug allergies. REVIEW OF SYSTEMS: CONSTITUTIONAL: There is no fever, no chills, no diaphoresis. HEENT: There is no headache or sore throat. CARDIOVASCULAR SYSTEM: There is no chest pain or orthopnea. RESPIRATORY SYSTEM: Shortness of breath is present. There is no cough. GASTROINTESTINAL SYSTEM: There is no nausea, no vomiting, no abdominal pain, diarrhea, or constipation. NEUROLOGICAL SYSTEM: There is no numbness, no dizziness. No new change in mental status. MUSCULOSKELETAL SYSTEM: There is no joint pain or swelling. DERMATOLOGIC SYSTEM: There is no skin rash or itching. GENITOURINARY SYSTEM: There is dysuria, but no flank pain and no hematuria. Rest of system review is normal. PHYSICAL EXAMINATION: GENERAL: At the time of exam, the patient was found to be alert and oriented x 3 and not in acute distress. VITAL SIGNS: At the initial time of presentation showed temperature of 99.4 degrees Fahrenheit, pulse of 105, respirations 28, blood pressure 207/123, O2 sat of 98% on room air. HEENT: Showed pupils to be equal, round, and reactive to light and accommodating. Extraocular muscles were intact. NECK: Supple with no JVD or carotid bruit. CARDIOVASCULAR SYSTEM: Showed normal first and second heart sounds with no gallops or murmurs. RESPIRATORY SYSTEM: Show good air entry on both sides of the lungs with no abnormal breath sounds. GASTROINTESTINAL SYSTEM: Show abdomen to be full, soft, nontender with no organomegaly or rigidity. NEUROLOGIC: Shows no focal deficit. MUSCULOSKELETAL SYSTEM: Show no joint swelling or tenderness. DERMATOLOGICAL SYSTEM: Showed no skin rash. GENITOURINARY SYSTEM: Showing no costovertebral angle tenderness. PERTINENT LABORATORY AND IMAGING STUDIES: The patient had a chest x-ray done that shows cardiomegaly and mild pulmonary edema. LAB TEST: The patient's CBC showed normal white count, normal hemoglobin and normal hematocrit. Coagulation studies were unremarkable. The patient's chemistry shows slight decrease in sodium level of 132 and elevated potassium level of 6.5 with low chloride level of 96.4, and elevated BUN of 86 with high creatinine level of 7.2 consistent with end-stage renal disease, on dialysis. The patient's calcium level is also high with a value of 10.4 and phosphorus level is elevated with a value of 6.2 and also there is elevated magnesium level of 2.5. The patient had serology test done that is reactive for hepatitis C antibodies. DIAGNOSES: 1. Fluid overload with end-stage renal disease, on dialysis. 2. Hypertensive crisis. 3. Hyperkalemia. 4. Positive hepatitis C test. PLAN OF CARE: 1. The patient will be admitted to the Critical Care Unit. We will continue nitroglycerin drip started in the Emergency Room for control of blood pressure. 2. The patient will continue Nephrology consult with Dr. Lomeli for management of end-stage renal disease, on dialysis and critical care consult with Dr. Montemayor for ICU admission. 3. The patient will have basic metabolic panel checked in the morning having had treatment for hyperkalemia with calcium chloride IV, 8 units of insulin IV as well as 1 amp of D50, dextrose 50 and Kayexelate. 4. The patient will be on Tylenol 650 mg by mouth every 4 hours as needed for fever and headache and will be on IV Zofran 4 mg every 8 hours as needed for nausea and vomiting. 5. The patient will be on home medication that include blood pressure medications . 6. The patient will be on Accu-Chek a.c. and at bedtime, followed by low-dose sliding scale using regular insulin coverage. 7. The patient's diet will be consistent carbohydrate, 2 gm sodium diet. JOB# [id number] OCN/NTS MTDD
[2019-01-16] MEDS ORDERED: NACL 0.9% 1000 ML 2,000 ML ONE (05:27)
[2019-01-16] MEDS ORDERED: CATAPRES PO SCH (06:00)
--- NOTE | 2019-01-16 08:57 | Consultation ---
History of Present Illness Consult date: 01/16/19 Reason for consult: other (Malignant hypertension on nitroglycerin infusion) History of present illness: Ms Gavin 63-year-old female who resides in a local group home, with known history of ESRD on HD M/W/F and HTN, who presented to [facility] ED with c/o of painless dyspnea that is worst with exertion. Pt states that she missed dialysis for 2 days. She was found to be in hypertensive urgency with BP 220/177; subsequently admitted to ICU. She was placed on nitroglycerine infusion. I have been consulted for critical care management. Patient is seen and examined. Trying to get up, wants to go home. Vitals, labs medication and chart reviewed. Denies any chest pain, shortness of breath. Just had breakfast. Had HD overnight, completed the session at 3am, 3Liters of fluid removed. She remains on 195mcg of nitroglycerine, yet to receive any of her home medications ROS: Stated complaint: AMINATA Other details as noted in HPI Constitutional: malaise. denies: fever Eyes: denies: eye discharge ENT: congestion Respiratory: shortness of breath, SOB with exertion, SOB at rest Cardiovascular: edema. denies: chest pain Gastrointestinal: denies: abdominal pain Genitourinary: denies: dysuria Musculoskeletal: denies: back pain Skin: denies: lesions Neurological: weakness Psychiatric: denies: anxiety - Past Medical History Previous Medical History?: Yes Hx Hypertension: Yes Hx Congestive Heart Failure: No Hx Diabetes: Yes Hx Renal Disease: Yes (Ebo-Rfna-Els) Hx Asthma: No Hx COPD: No Additional medical history: Dementia, PVD, Diabetes - Surgical History Past Surgical History?: Yes Additional Surgical History: right chest permcath - Social History Smoking Status: Former Smoker Substance Use Type: None - Medications Home Medications: Home Medications Medication Instructions Recorded Confirmed Last Taken Type LORazepam 1 mg PO Q8HR PRN 03/16/18 03/16/18 Unknown History Melatonin 3 mg PO HS 03/16/18 03/16/18 Unknown History Pantoprazole 40 mg PO DAILY 03/16/18 03/16/18 Unknown History Renvela 800 mg PO TID 03/16/18 03/16/18 Unknown History Sertraline 50 mg PO DAILY 03/16/18 03/16/18 Unknown History Aspirin 81 mg PO DAILY #30 03/18/18 Unknown Rx Aspirin [Aspirin BABY CHEW TAB] 81 mg PO QDAY tab.chew 03/18/18 Unknown Rx Folic Acid 1 mg PO DAILY #30 03/18/18 Unknown Rx Folic Acid [Folvite] 1 mg PO DAILY tablet 03/18/18 Unknown Rx ISOSORBIDE MONOnitrate 20 mg PO TID #90 03/18/18 Unknown Rx ISOSORBIDE MONOnitrate [Monoket] 20 mg PO TID tablet 03/18/18 Unknown Rx LORazepam [Ativan] 1 mg PO Q8H PRN tablet 03/18/18 Unknown Rx Metoprolol 25 mg PO DAILY #30 03/18/18 Unknown Rx Metoprolol [Lopressor TAB] 25 mg PO DAILY tablet 03/18/18 Unknown Rx NIFEdipine 90 mg PO DAILY #30 03/18/18 Unknown Rx NIFEdipine XL [Procardia Xl] 90 mg PO QDAY tablet 03/18/18 Unknown Rx Sertraline [Zoloft] 50 mg PO QDAY tablet 03/18/18 Unknown Rx Sevelamer Carbonate [Renvela] 800 mg PO AC tablet 03/18/18 Unknown Rx Sodium Chloride 0.9% Int [Sodium 10 ml IV BID syringe 03/18/18 Unknown Rx Chloride Flush Syringe 10 ml] Sodium Chloride 0.9% Int [Sodium 10 ml IV PRN PRN syringe 03/18/18 Unknown Rx Chloride Flush Syringe 10 ml] hydrALAZINE 100 mg PO TID #90 03/18/18 Unknown Rx hydrALAZINE [Apresoline TAB] 100 mg PO TID tab 03/18/18 Unknown Rx Medications and Allergies Allergies Allergy/AdvReac Type Severity Reaction Status Date / Time No Known Allergies Allergy Verified 03/16/18 17:27 Home Medications Medication Instructions Recorded Confirmed Last Taken Type LORazepam [Ativan] 1 mg PO Q8H PRN tablet 03/18/18 01/15/19 Unknown Rx Sevelamer Carbonate [Renvela] 800 mg PO AC tablet 03/18/18 01/15/19 Unknown Rx Minoxidil [Loniten] 2.5 mg PO BID 01/15/19 01/15/19 Unknown History cloNIDine [Catapres] 0.1 mg PO Q8HR 01/15/19 01/15/19 Unknown History Active Meds: Active Medications Acetaminophen (Tylenol) 650 mg PO Q4H PRN PRN Reason: Fever >101 Clonidine HCl (Catapres) 0.1 mg PO Q8HR [facility] Dextrose (D50w (25gm) Syringe) 50 ml IV PRN PRN PRN Reason: Hypoglycemia Heparin Sodium (Porcine) (Heparin) 5,000 unit SUB-Q Q12HR TONY Sodium Chloride (Nacl 0.9%) 100 mls @ 999 mls/hr IV JULIEN PRN PRN Reason: Hypotension Nitroglycerin/Dextrose (Tridil Drip 50mg/250ml) 50 mg in 250 mls @ 3 mls/hr IV TITR TONY; Protocol Last Admin: 01/16/19 08:28 Dose: 10 mcg/min, 3 mls/hr Documented by: Insulin Human Regular (Humulin R) 0 units SUB-Q AC TONY; Protocol Insulin Human Regular (Humulin R) 0 units SUB-Q QHS TONY; Protocol Lorazepam (Ativan) 1 mg PO Q8H PRN PRN Reason: Agitation Last Admin: 01/16/19 02:17 Dose: 1 mg Documented by: Minoxidil (Loniten) 2.5 mg PO BID TONY Ondansetron HCl (Zofran) 4 mg IV Q8H PRN PRN Reason: Nausea And Vomiting Sevelamer Carbonate (Renvela) 800 mg PO AC [facility] Physical Examination Vital signs: Vital Signs Temp Pulse Resp BP Pulse Ox 99.4 F 105 H 28 H 207/123 99 01/15/19 19:46 01/15/19 19:46 01/15/19 19:46 01/15/19 19:46 01/15/19 19:46 General appearance: alert, agitated (trying to sit out of bed), appears uncomfortable (mild respiraotry distress, on supplemental oxyge at 3L/min) Eyes: non-icteric ENT: oropharynx moist Neck: supple, no lymphadenopathy, no JVD Effort: mildly labored Ascultation: Bilateral: diminished breath sounds, rales Cardiovascular: regular rate and rhythm, other (S1,S2, no mururs, gallops or rubs) Gastrointestinal: normoactive bowel sounds, soft, non-tender, non-distended Integumentary: normal Extremities: no cyanosis, no edema, pulses normal, no ischemia or petechiae Musculoskeletal: no deformities normal mental status, non-focal exam, pupils equal and round, CN II-XII normal, motor strength normal and mood appropriate, anxious Results - Laboratory Findings CBC and BMP: 01/15/19 20:36 01/17/19 10:06 PT/INR, D-dimer PT 14.2 Sec. (12.2-14.9) 01/15/19 20:36 INR 1.04 (0.87-1.13) 01/15/19 20:36 Abnormal lab findings: Abnormal Labs 01/15/19 01/15/19 01/15/19 20:36 20:36 23:00 RDW 18.2 H Sodium 132 L Potassium 6.5 H* Chloride 96.4 L Carbon Dioxide 17 L BUN 86 H Creatinine 17.2 H Calcium 10.4 H Phosphorus 6.20 H Magnesium 2.50 H Hepatitis C Antibody Reactive A - Diagnostic Findings Chest x-ray: image reviewed (Hyperinflaed with flattening of diahragms, alveolar edema bialterally) Assessment and Plan Malignant hypertension Acute pulmonary edema ESRD on HD- M/W/F Hyponatremia Hyperkalemia Hyperphosphatemia Wean off nitroglycerine infusion and start home oral medications Supplemental oxygen to keep O2 sats>90% ABG VTE prophylaxis Supportive HD Accuchecks with glycemic control, target blood glucose 140-180mg/dL Bronchodilators per protocol Follow up CXR once euvolemic Closely monitor hemodynaics Re-direct, get out of bed, early mobility Critical care time in (mins) excluding proc time.: 30 Critical care attestation.: If time is entered above; I have spent that time in minutes in the direct care of this critically ill patient, excluding procedure time.
[2019-01-16] MEDS ORDERED: TRIDIL DRIP 50MG/250ML 50 MG/250 ML BOTTLE IV SCH (09:00)
--- NOTE | 2019-01-16 09:16 | Progress Note ---
Subjective Interval history: Patient was seen today for follow-up on multiple renal related issues Events of this hospitalization noted And admitted with hyperkalemia, metabolic acidosis missing dialysis treatment noncompliant Patient denies having any chest pain pressure or shortness of breath Vitals labs intake output medications were reviewed Social history: Reviewed Allergies: Reviewed Family history: Reviewed Physical examination HEENT: Oral mucosa moist no pallor or icterus Neck: Supple no JVD Chest: Bilateral crackles CVS: Regular rate and rhythm S1 and S2 heard Abdomen: Soft nontender no suprapubic masses no organomegaly appreciable Extremity: Dry skin less than 1+ peripheral edema Musculoskeletal: No joint effusion noted in knees and ankle Neurological: Alert awake Dermatology: No petechial rashes Psychiatry: No evidence of any agitation and aggression noted Assessment and plan End-stage renal disease: Patient will continue with hemodialysis, monitor dialysis related labs, will require dialysis tomorrow, will be on Tuesday Current access is a right arm fistula Uncontrolled hypertension: Needs ongoing monitoring and follow-up Increase clonidine to 0.3 4 times a day Hyperkalemia:? Compliance patient is not taking any medication that would cause hyperkalemia Noncompliant patient: mortality risk is high she has been missing dialysis treatment Metabolic acidosis continue to monitor and follow Hyperphosphatemia phosphorus was 6.2 upon arrival with calcium of 10.4 state resulting from noncompliance Chest x-ray shows evidence of pulmonary vascular congestion Anemia in end-stage renal disease: Monitor hemoglobin and hematocrit, erythropoietin as needed Secondary hyperparathyroidism periodically check phosphorus and PTH level Malnutrition risk: High please consider high protein diet as well as nutrition follow-up, patient needs at least 1.5 g protein per KG body weight Tachycardia uncontrolled hypertension: Patient also needs to be seen by cardiology, increase clonidine for now Patient's prognosis is very poor due to end-stage renal disease and noncompliance patient was educated that her mortality risk is high Patient was adequately counseled and educated regarding multiple renal related issues Time spent in critical care setting today 36 minutes Pertinent lab findings were discussed with patient, patient does exhibit good understanding of renal issues We'll continue to follow and make recommendation from renal standpoint Objective - Vital Signs Vital signs: Vital Signs - 12hr 01/15/19 01/15/19 01/15/19 22:00 22:30 23:00 Temperature Pulse Rate 107 H 109 H 117 H Respiratory 25 H 22 25 H Rate Blood Pressure 237/134 227/135 211/118 Blood Pressure [Left] O2 Sat by Pulse 96 97 97 Oximetry O2 Sat by Pulse Oximetry [ Bilateral] 01/15/19 01/15/19 01/15/19 23:19 23:29 23:30 Temperature Pulse Rate 118 H 116 H 118 H Respiratory 19 21 23 Rate Blood Pressure 206/132 200/125 177/124 Blood Pressure [Left] O2 Sat by Pulse 96 95 94 Oximetry O2 Sat by Pulse Oximetry [ Bilateral] 01/15/19 01/15/19 01/16/19 23:40 23:50 00:00 Temperature Pulse Rate 120 H 117 H 116 H Respiratory 22 20 20 Rate Blood Pressure 207/132 194/117 194/115 Blood Pressure [Left] O2 Sat by Pulse 95 96 95 Oximetry O2 Sat by Pulse Oximetry [ Bilateral] 01/16/19 01/16/19 01/16/19 00:10 00:20 00:30 Temperature Pulse Rate 118 H 115 H 117 H Respiratory 20 20 21 Rate Blood Pressure 188/115 195/114 198/116 Blood Pressure [Left] O2 Sat by Pulse 94 95 95 Oximetry O2 Sat by Pulse Oximetry [ Bilateral] 01/16/19 01/16/19 01/16/19 00:41 00:50 01:18 Temperature 98.3 F Pulse Rate 124 H 116 H Respiratory 18 21 Rate Blood Pressure 197/122 194/111 Blood Pressure 194/111 [Left] O2 Sat by Pulse 95 97 Oximetry O2 Sat by Pulse Oximetry [ Bilateral] 01/16/19 01/16/19 01/16/19 01:46 02:45 03:00 Temperature 98.8 F 99.2 F Pulse Rate 118 H 119 H Respiratory 18 Rate Blood Pressure 220/117 225/120 Blood Pressure [Left] O2 Sat by Pulse Oximetry O2 Sat by Pulse 98 Oximetry [ Bilateral] 01/16/19 01/16/19 01/16/19 03:15 03:16 03:30 Temperature 98.6 F Pulse Rate 120 H 123 H Respiratory Rate Blood Pressure 208/112 204/109 Blood Pressure [Left] O2 Sat by Pulse Oximetry O2 Sat by Pulse Oximetry [ Bilateral] 01/16/19 01/16/19 01/16/19 03:45 04:00 04:15 Temperature Pulse Rate 122 H 121 H 119 H Respiratory Rate Blood Pressure 196/104 200/107 194/107 Blood Pressure [Left] O2 Sat by Pulse Oximetry O2 Sat by Pulse Oximetry [ Bilateral] 01/16/19 01/16/19 01/16/19 04:30 04:45 05:00 Temperature 98.4 F Pulse Rate 121 H 121 H 122 H Respiratory Rate Blood Pressure 192/100 174/95 196/89 Blood Pressure [Left] O2 Sat by Pulse Oximetry O2 Sat by Pulse Oximetry [ Bilateral] 01/16/19 01/16/19 01/16/19 05:15 05:30 05:45 Temperature Pulse Rate 133 H 141 H 148 H Respiratory Rate Blood Pressure 211/111 185/103 209/114 Blood Pressure [Left] O2 Sat by Pulse Oximetry O2 Sat by Pulse Oximetry [ Bilateral] 01/16/19 01/16/19 01/16/19 06:00 06:15 06:30 Temperature Pulse Rate 140 H 130 H 125 H Respiratory Rate Blood Pressure 211/115 199/93 208/106 Blood Pressure [Left] O2 Sat by Pulse Oximetry O2 Sat by Pulse Oximetry [ Bilateral] 01/16/19 01/16/19 06:43 08:30 Temperature 98.9 F 99.8 F H Pulse Rate 131 H Respiratory 18 18 Rate Blood Pressure 201/107 190/98 Blood Pressure [Left] O2 Sat by Pulse 98 Oximetry O2 Sat by Pulse Oximetry [ Bilateral] - Lab 01/15/19 20:36 01/15/19 20:36 Most recent lab results Calcium 10.4 mg/dL (8.4-10.2) H 01/15/19 20:36 Phosphorus 6.20 mg/dL (2.5-4.5) H 01/15/19 20:36 Magnesium 2.50 mg/dL (1.7-2.3) H 01/15/19 20:36 Medications & Allergies - Medications Allergies/Adverse Reactions: Allergies No Known Allergies Allergy (Verified 03/16/18 17:27) Home Medications: Home Medications Medication Instructions Recorded Confirmed Last Taken Type RX: LORazepam [Ativan] 1 mg PO Q8H PRN tablet 03/18/18 01/15/19 Unknown Rx RX: Sevelamer Carbonate [Renvela] 800 mg PO AC tablet 03/18/18 01/15/19 Unknown Rx Minoxidil [Loniten] 2.5 mg PO BID 01/15/19 01/15/19 Unknown History cloNIDine [Catapres] 0.1 mg PO Q8HR 01/15/19 01/15/19 Unknown History Active Medications: Generic Name Dose Route Start Last Admin Trade Name Freq PRN Reason Stop Dose Admin Acetaminophen 650 mg 01/15/19 22:18 Tylenol PO Q4H PRN Fever >101 Carvedilol 25 mg 01/16/19 10:00 Coreg PO 01/16/19 10:01 ONCE ONE Clonidine HCl 0.1 mg 01/16/19 06:00 Catapres PO Q8HR TONY Dextrose 50 ml 01/15/19 22:22 D50w (25gm) Syringe IV PRN PRN Hypoglycemia Heparin Sodium (Porcine) 5,000 unit 01/16/19 10:00 Heparin SUB-Q Q12HR [facility] Sodium Chloride 100 mls @ 999 mls/hr 01/15/19 22:46 Nacl 0.9% IV JULIEN PRN Hypotension Nicardipine HCl 50 mg/ Sodium 250 mls @ 25 mls/hr 01/16/19 10:00 Chloride IV TITR TONY Protocol 5 MG/HR Insulin Human Regular 0 units 01/16/19 07:30 Humulin R SUB-Q AC TONY Protocol Insulin Human Regular 0 units 01/16/19 22:00 Humulin R SUB-Q QHS [facility] Protocol Lorazepam 1 mg 01/15/19 22:24 01/16/19 02:17 Ativan PO 1 mg Q8H PRN Administration Agitation Minoxidil 2.5 mg 01/16/19 10:00 Loniten PO BID TONY Ondansetron HCl 4 mg 01/15/19 22:18 Zofran IV Q8H PRN Nausea And Vomiting Sevelamer Carbonate 800 mg 01/16/19 07:30 Renvela PO AC TONY
[2019-01-16] MEDS ORDERED: CARDENE 50 MG in NACL 0.9% 250ML 230 ML IV SCH ×2 (10:00→13:00)
[2019-01-16] MEDS ORDERED: COREG PO ONE (10:00)
[2019-01-16] MEDS: IMDUR PO SCH (10:38)
[2019-01-16] MEDS: PROCARDIA XL PO SCH (10:38)
[2019-01-16] MEDS: HEPARIN SUB-Q SCH ×2 (10:45→23:29)
[2019-01-16] MEDS: CATAPRES PO SCH ×4 (10:48→23:34)
[2019-01-16] MEDS: RENVELA PO SCH ×3 (10:49→17:03)
[2019-01-16] MEDS: TOPROL XL PO SCH (11:00)
[2019-01-16] MEDS: HumuLIN R SUB-Q SCH ×4 (11:11→23:33)
[2019-01-16] MEDS ORDERED: NORMODYNE IV PRN (12:40)
[2019-01-16] MEDS: LONITEN PO SCH ×2 (12:43→23:35)
[2019-01-16] MEDS: APRESOLINE PO SCH ×2 (17:02→20:00)
[2019-01-17] MEDS: HumuLIN R SUB-Q SCH ×4 (07:37→22:02)
[2019-01-17] MEDS: APRESOLINE PO SCH ×3 (07:50→22:00)
[2019-01-17] MEDS: RENVELA PO SCH ×3 (07:59→16:34)
--- NOTE | 2019-01-17 08:44 | Progress Note ---
Subjective Interval history: Patient was seen today for follow-up on multiple renal related issues she is feeling much better Blood pressure is much better controlled Admits being noncompliant Was also seen and supervised on hemodialysis Vitals labs intake output medications were reviewed Social history: Reviewed Allergies: Reviewed Family history: Reviewed Physical examination HEENT: Oral mucosa moist no pallor or icterus Neck: Supple no JVD Chest: Bilateral crackles CVS: Regular rate and rhythm S1 and S2 heard Abdomen: Soft nontender no suprapubic masses no organomegaly appreciable Extremity: Dry skin less than 1+ peripheral edema Musculoskeletal: No joint effusion noted in knees and ankle Neurological: Alert awake Dermatology: No petechial rashes Psychiatry: No evidence of any agitation and aggression noted Assessment and plan End-stage renal disease: Patient is currently on hemodialysis, and will need to continue with hemodialysis on Tuesday schedule, in the clinic her outpatient dialysis days are Tuesday Noncompliance: Consequences explained including mortality risk Anemia and end-stage renal disease: Monitor hemoglobin and hematocrit erythropoietin as needed. Secondary hyperparathyroidism: Check phosphorus and PTH level periodically, binders as needed Dialysis access: Currently working well Malnutrition risk: High consider high-protein diet dietitian evaluation and follow-up in general 1.5 g protein per KG body weight Fluid restriction: 1200 cc per day not to exceed more than that Adequately counseled and educated about other hospital related issues as well Labs were discussed with patient and simple [place] Patient does appear to have good understanding of all the dialysis related issues We'll continue to follow and make recommendation from renal standpoint Objective - Vital Signs Vital signs: Vital Signs - 12hr 01/16/19 01/16/19 01/16/19 23:18 23:30 23:34 Temperature Pulse Rate 81 81 Respiratory 20 Rate Respiratory 20 Rate [Right Neck] Blood Pressure 101/63 Blood Pressure 101/63 [Left] O2 Sat by Pulse 100 100 Oximetry 01/17/19 01/17/19 01/17/19 02:39 04:03 07:17 Temperature 98.3 F 98.0 F Pulse Rate 69 70 78 Respiratory 20 20 Rate Respiratory Rate [Right Neck] Blood Pressure 98/55 126/69 Blood Pressure [Left] O2 Sat by Pulse 100 97 Oximetry - Lab 01/15/19 20:36 01/17/19 10:06 Most recent lab results Calcium 10.4 mg/dL (8.4-10.2) H 01/15/19 20:36 Phosphorus 6.20 mg/dL (2.5-4.5) H 01/15/19 20:36 Magnesium 2.50 mg/dL (1.7-2.3) H 01/15/19 20:36 Medications & Allergies - Medications Allergies/Adverse Reactions: Allergies No Known Allergies Allergy (Verified 03/16/18 17:27) Home Medications: Home Medications Medication Instructions Recorded Confirmed Last Taken Type LORazepam [Ativan] 1 mg PO Q8H PRN tablet 03/18/18 01/15/19 Unknown Rx Sevelamer Carbonate [Renvela] 800 mg PO AC tablet 03/18/18 01/15/19 Unknown Rx Minoxidil [Loniten] 2.5 mg PO BID 01/15/19 01/15/19 Unknown History cloNIDine [Catapres] 0.1 mg PO Q8HR 01/15/19 01/15/19 Unknown History Active Medications: Generic Name Dose Route Start Last Admin Trade Name Freq PRN Reason Stop Dose Admin Acetaminophen 650 mg 01/15/19 22:18 Tylenol PO Q4H PRN Fever >101 Clonidine HCl 0.3 mg 01/16/19 10:00 01/16/19 23:34 Catapres PO Not Given QID [facility] Dextrose 50 ml 01/15/19 22:22 D50w (25gm) Syringe IV PRN PRN Hypoglycemia Heparin Sodium (Porcine) 5,000 unit 01/16/19 10:00 01/16/19 23:29 Heparin SUB-Q 5,000 unit Q12HR TONY Administration Hydralazine HCl 100 mg 01/16/19 14:00 01/17/19 07:50 Apresoline PO Not Given TID TONY Sodium Chloride 100 mls @ 999 mls/hr 01/15/19 22:46 Nacl 0.9% IV JULIEN PRN Hypotension Nicardipine HCl 50 mg/ Sodium 250 mls @ 25 mls/hr 01/16/19 13:00 Chloride IV TITR TONY Protocol 5 MG/HR Insulin Human Regular 0 units 01/16/19 07:30 01/17/19 07:37 Humulin R SUB-Q Not Given AC [facility] Protocol Insulin Human Regular 0 units 01/16/19 22:00 01/16/19 23:33 Humulin R SUB-Q Not Given QHS [facility] Protocol Isosorbide Mononitrate 60 mg 01/16/19 10:00 01/16/19 10:38 Imdur PO 60 mg QDAY TONY Administration Labetalol HCl 10 mg 01/16/19 12:40 Normodyne IV Q4H PRN SBP >/=160 OR DBP >/=100 Metoprolol Succinate 25 mg 01/16/19 10:00 01/16/19 11:00 Toprol Xl PO 25 mg QDAY TONY Administration Minoxidil 2.5 mg 01/16/19 10:00 01/16/19 23:35 Loniten PO Not Given BID TONY Nifedipine 90 mg 01/16/19 10:00 01/16/19 10:38 Procardia Xl PO 90 mg QDAY TONY Administration Ondansetron HCl 4 mg 01/15/19 22:18 Zofran IV Q8H PRN Nausea And Vomiting Sevelamer Carbonate 800 mg 01/16/19 07:30 01/17/19 07:59 Renvela PO 800 mg AC TONY Administration
[2019-01-17] MEDS: HEPARIN SUB-Q SCH ×2 (09:13→21:59)
[2019-01-17] MEDS: IMDUR PO SCH (09:13)
[2019-01-17] MEDS: CATAPRES PO SCH ×4 (09:17→22:01)
[2019-01-17] MEDS: LONITEN PO SCH ×2 (09:18→22:03)
[2019-01-17] MEDS: TOPROL XL PO SCH (09:18)
[2019-01-17] MEDS: PROCARDIA XL PO SCH (09:18)
[2019-01-17] MEDS ORDERED: NACL 0.9% 100 ML IV PRN (09:30)
[2019-01-17 11:11] LABS: Calcium 9.6 mg/dL (8.4-10.2)
--- NOTE | 2019-01-17 11:42 | Progress Note ---
Assessment and Plan Assessment and plan: Ms Gavin 63-year-old female who resides in a local long-term, with known history of ESRD on HD M/W/F and HTN, who presented to [facility] ED with c/o of painless dyspnea that is worst with exertion. Pt states that she missed dialysis for 2 days. She was found to be in hypertensive urgency with BP 220/177; subsequently admitted to ICU. She was placed on nitro gtt. Nitro gtt was d/c'd, her BP has been optimized on PO antihypertensive medication. She transferred to [facility] unit. ESRD on HD- M/W/F Volume overload Hyponatremia- likely secondary to volume overload Hyperkalemia Hyperphosphatemia HTN Urgency Hx of HTN Hyperglycemia Plan: HD pending for today Nephrology following Monitor Electrolytes Continue to monitor BP Continue scheduled Clonidine, Isosorbide Mononitrate, Metoprolol, Minoxidil and Nifedipine to optimize BP Continue IV Labetalol prn HgbA1c pending Continue POC BG monitoring SSI coverage DVT PPX on heparin History Interval history: Pt is seen today on the [facility] unit. She is schedule for HD today. There were no acute overnight events. Hospitalist Physical - Constitutional Vitals: Temp Pulse Resp BP Pulse Ox 98.0 F 78 20 126/69 97 01/17/19 07:17 01/17/19 07:17 01/17/19 07:17 01/17/19 07:17 01/17/19 07:17 General appearance: Present: no acute distress - EENT Eyes: Present: PERRL, EOM intact ENT: hearing intact, clear oral mucosa - Neck Neck: Present: supple, normal ROM - Respiratory Respiratory effort: normal Respiratory: bilateral: diminished (bases) - Cardiovascular Heart rate: 78 (bpm) Rhythm: regular Heart Sounds: Present: S1 & S2. Absent: rub, click - Extremities Extremities: pulses intact Extremity abnormal: edema - Peripheral Assessment Bilateral Lower Extremity Edema Degree: Trace Peripheral Pulses: within normal limits - Abdominal General gastrointestinal: soft, non-tender, normal bowel sounds - Integumentary Integumentary: Present: warm, dry - Psychiatric Psychiatric: appropriate mood/affect, cooperative - Neurologic Neurologic: CNII-XII intact, moves all extremities - Allied Health Allied health notes reviewed: nursing Results - Labs CBC & Chem 7: 01/15/19 20:36 01/17/19 10:06 Labs: Laboratory Last Values WBC 6.4 K/mm3 (4.5-11.0) 01/15/19 20:36 RBC 3.68 M/mm3 (3.65-5.03) 01/15/19 20:36 Hgb 10.7 gm/dl (10.1-14.3) 01/15/19 20:36 Hct 32.4 % (30.3-42.9) 01/15/19 20:36 MCV 88 fl (79-97) 01/15/19 20:36 MCH 29 pg (28-32) 01/15/19 20:36 MCHC 33 % (30-34) 01/15/19 20:36 RDW 18.2 % (13.2-15.2) H 01/15/19 20:36 Plt Count 232 K/mm3 (140-440) 01/15/19 20:36 PT 14.2 Sec. (12.2-14.9) 01/15/19 20:36 INR 1.04 (0.87-1.13) 01/15/19 20:36 Sodium 134 mmol/L (137-145) L 01/17/19 10:06 Potassium 5.1 mmol/L (3.6-5.0) H D 01/17/19 10:06 Chloride 93.3 mmol/L (98-107) L 01/17/19 10:06 Carbon Dioxide 24 mmol/L (22-30) D 01/17/19 10:06 Anion Gap 22 mmol/L 01/17/19 10:06 BUN 51 mg/dL (7-17) H 01/17/19 10:06 Creatinine 11.5 mg/dL (0.7-1.2) H 01/17/19 10:06 Estimated GFR 3 ml/min 01/17/19 10:06 BUN/Creatinine Ratio 4 % 01/17/19 10:06 Glucose 114 mg/dL (65-100) H 01/17/19 10:06 POC Glucose 81 (70-105) 01/17/19 07:21 Calcium 9.6 mg/dL (8.4-10.2) 01/17/19 10:06 Phosphorus 6.20 mg/dL (2.5-4.5) H 01/15/19 20:36 Magnesium 2.50 mg/dL (1.7-2.3) H 01/15/19 20:36 Hepatitis A IgM Ab Non-reactive (NonReactive) 01/15/19 23:00 Hep Bs Antigen Non-reactive (Negative) 01/15/19 23:00 Hep B Core IgM Ab Non-reactive (NonReactive) 01/15/19 23:00 Hepatitis C Antibody Reactive (NonReactive) A 01/15/19 23:00 Active Medications - Current Medications Current Medications: Generic Name Dose Route Start Last Admin Trade Name Freq PRN Reason Stop Dose Admin Acetaminophen 650 mg 01/15/19 22:18 Tylenol PO Q4H PRN Fever >101 Clonidine HCl 0.3 mg 01/16/19 10:00 01/17/19 09:17 Catapres PO Not Given QID [facility] Dextrose 50 ml 01/15/19 22:22 D50w (25gm) Syringe IV PRN PRN Hypoglycemia Heparin Sodium (Porcine) 5,000 unit 01/16/19 10:00 01/17/19 09:13 Heparin SUB-Q 5,000 unit Q12HR [facility] Administration Hydralazine HCl 100 mg 01/16/19 14:00 01/17/19 07:50 Apresoline PO Not Given TID [facility] Nicardipine HCl 50 mg/ Sodium 250 mls @ 25 mls/hr 01/16/19 13:00 Chloride IV TITR [facility] Protocol 5 MG/HR Sodium Chloride 100 mls @ 999 mls/hr 01/17/19 09:30 Nacl 0.9% IV JULIEN PRN Hypotension Insulin Human Regular 0 units 01/16/19 07:30 01/17/19 07:37 Humulin R SUB-Q Not Given AC [facility] Protocol Insulin Human Regular 0 units 01/16/19 22:00 01/16/19 23:33 Humulin R SUB-Q Not Given QHS [facility] Protocol Isosorbide Mononitrate 60 mg 01/16/19 10:00 01/17/19 09:13 Imdur PO 60 mg QDAY [facility] Administration Labetalol HCl 10 mg 01/16/19 12:40 Normodyne IV Q4H PRN SBP >/=160 OR DBP >/=100 Metoprolol Succinate 25 mg 01/16/19 10:00 01/17/19 09:18 Toprol Xl PO Not Given QDAY [facility] Minoxidil 2.5 mg 01/16/19 10:00 01/17/19 09:18 Loniten PO Not Given BID [facility] Nifedipine 90 mg 01/16/19 10:00 01/17/19 09:18 Procardia Xl PO Not Given QDAY [facility] Ondansetron HCl 4 mg 01/15/19 22:18 Zofran IV Q8H PRN Nausea And Vomiting Sevelamer Carbonate 800 mg 01/16/19 07:30 01/17/19 07:59 Renvela PO 800 mg AC [facility] Administration
[2019-01-17] MEDS ORDERED: NACL 0.9 (PRIMING MACHINE ONLY DIALYSIS) MC ONE (13:10)
--- NOTE | 2019-01-17 15:40 | Progress Note ---
Assessment and Plan Assessment and plan: Ms Gavin 63-year-old female who resides in a local custodial, with known history of ESRD on HD M/W/F and HTN, who presented to [facility] ED with c/o of painless dyspnea that is worst with exertion. Pt states that she missed dialysis for 2 days. She was found to be in hypertensive urgency with BP 220/177; subsequently admitted to ICU. She was placed on nitro gtt. ESRD on HD- M/W/F Volume overload Hyponatremia- likely secondary to volume overload Hyperkalemia Hyperphosphatemia HTN Urgency Hx of HTN Hyperglycemia Plan: Emergent HD scheduled for today Nephrology following Monitor Electrolytes Continue to monitor BP Discontinue Nitro gtt; start on oral antihypertensive medication to optimize BP Continue IV Labetalol prn Continue POC BG monitoring SSI coverage DVT PPX on heparin History Interval history: Pt is seen in the ICU. She is on nitro gtt for hypertensive urgency. She will be treated with emergent HD. She continues to experience dyspnea with activity r/t volume overload. She denies nausea, vomiting, headache. Hospitalist Physical - Physical exam Narrative exam: General appearance: Present: mild distress - EENT Eyes: Present: PERRL, EOM intact ENT: hearing intact, clear oral mucosa - Neck Neck: Present: supple, normal ROM - Respiratory Respiratory effort: normal Respiratory: bilateral: diminished (bases) - Cardiovascular Heart rate: 115 (bpm) Rhythm: regular Heart Sounds: Present: S1 & S2. Absent: rub, click - Extremities Extremities: pulses intact Extremity abnormal: edema - Peripheral Assessment Bilateral Lower Extremity Edema Degree: Trace Peripheral Pulses: within normal limits - Abdominal General gastrointestinal: soft, non-tender, normal bowel sounds - Integumentary Integumentary: Present: warm, dry - Psychiatric Psychiatric: appropriate mood/affect, cooperative - Neurologic Neurologic: CNII-XII intact, moves all extremities - Constitutional Vitals: Temp Pulse Resp BP Pulse Ox 97.8 F 80 18 109/52 97 01/17/19 09:25 01/17/19 13:30 01/17/19 09:25 01/17/19 13:30 01/17/19 07:17 General appearance: Present: no acute distress Results - Labs CBC & Chem 7: 01/15/19 20:36 01/17/19 10:06 Labs: Laboratory Last Values WBC 6.4 K/mm3 (4.5-11.0) 01/15/19 20:36 RBC 3.68 M/mm3 (3.65-5.03) 01/15/19 20:36 Hgb 10.7 gm/dl (10.1-14.3) 01/15/19 20:36 Hct 32.4 % (30.3-42.9) 01/15/19 20:36 MCV 88 fl (79-97) 01/15/19 20:36 MCH 29 pg (28-32) 01/15/19 20:36 MCHC 33 % (30-34) 01/15/19 20:36 RDW 18.2 % (13.2-15.2) H 01/15/19 20:36 Plt Count 232 K/mm3 (140-440) 01/15/19 20:36 PT 14.2 Sec. (12.2-14.9) 01/15/19 20:36 INR 1.04 (0.87-1.13) 01/15/19 20:36 Sodium 134 mmol/L (137-145) L 01/17/19 10:06 Potassium 5.1 mmol/L (3.6-5.0) H D 01/17/19 10:06 Chloride 93.3 mmol/L (98-107) L 01/17/19 10:06 Carbon Dioxide 24 mmol/L (22-30) D 01/17/19 10:06 Anion Gap 22 mmol/L 01/17/19 10:06 BUN 51 mg/dL (7-17) H 01/17/19 10:06 Creatinine 11.5 mg/dL (0.7-1.2) H 01/17/19 10:06 Estimated GFR 3 ml/min 01/17/19 10:06 BUN/Creatinine Ratio 4 % 01/17/19 10:06 Glucose 114 mg/dL (65-100) H 01/17/19 10:06 POC Glucose 81 (70-105) 01/17/19 07:21 Calcium 9.6 mg/dL (8.4-10.2) 01/17/19 10:06 Phosphorus 6.20 mg/dL (2.5-4.5) H 01/15/19 20:36 Magnesium 2.50 mg/dL (1.7-2.3) H 01/15/19 20:36 Hepatitis A IgM Ab Non-reactive (NonReactive) 01/15/19 23:00 Hep Bs Antigen Non-reactive (Negative) 01/15/19 23:00 Hep B Core IgM Ab Non-reactive (NonReactive) 01/15/19 23:00 Hepatitis C Antibody Reactive (NonReactive) A 01/15/19 23:00 Active Medications - Current Medications Current Medications: Generic Name Dose Route Start Last Admin Trade Name Freq PRN Reason Stop Dose Admin Acetaminophen 650 mg 01/15/19 22:18 Tylenol PO Q4H PRN Fever >101 Clonidine HCl 0.3 mg 01/16/19 10:00 01/17/19 14:49 Catapres PO Not Given QID [facility] Dextrose 50 ml 01/15/19 22:22 D50w (25gm) Syringe IV PRN PRN Hypoglycemia Heparin Sodium (Porcine) 5,000 unit 01/16/19 10:00 01/17/19 09:13 Heparin SUB-Q 5,000 unit Q12HR [facility] Administration Hydralazine HCl 100 mg 01/16/19 14:00 01/17/19 14:49 Apresoline PO Not Given TID [facility] Nicardipine HCl 50 mg/ Sodium 250 mls @ 25 mls/hr 01/16/19 13:[address] [facility] Protocol 5 MG/HR Sodium Chloride 100 mls @ 999 mls/hr 01/17/19 09:30 Nacl 0.9% IV JULIEN PRN Hypotension Insulin Human Regular 0 units 01/16/19 07:30 01/17/19 13:54 Humulin R SUB-Q Not Given AC [facility] Protocol Insulin Human Regular 0 units 01/16/19 22:00 01/16/19 23:33 Humulin R SUB-Q Not Given QHS [facility] Protocol Labetalol HCl 10 mg 01/16/19 12:40 Normodyne IV Q4H PRN SBP >/=160 OR DBP >/=100 Minoxidil 2.5 mg 01/16/19 10:00 01/17/19 09:18 Loniten PO Not Given BID [facility] Ondansetron HCl 4 mg 01/15/19 22:18 Zofran IV Q8H PRN Nausea And Vomiting Sevelamer Carbonate 800 mg 01/16/19 07:30 01/17/19 13:54 Renvela PO Not Given AC [facility]
--- NOTE | 2019-01-17 18:14 | Progress Note ---
Assessment and Plan Patient undergoing hemodialysis. Patient is on 3 litres O2.O2 saturation 97%. Patient complaining slight chest tightness. No complaint of shortness of breath and cough. - Patient Problems (1) Pulmonary edema cardiac cause Current Visit: Yes Status: Acute Plan to address problem: Patient is on hemodialysis. Continue S/C heparin. (2) Volume overload Current Visit: Yes Status: Acute Plan to address problem: Patient is on hemodialysis. (3) ESRD (end stage renal disease) Current Visit: Yes Status: Acute Plan to address problem: Management as per nephrology. Patient is on hemodialysis. (4) Hyperkalemia Current Visit: Yes Status: Acute Plan to address problem: K+ coming down To days K+ 5.1. (5) Diabetes Current Visit: No Status: Acute Plan to address problem: Management as per primary care. Subjective Date of service: 01/17/19 Interval history: Patient undergoing hemodialysis. Patient is on 3 litres O2.O2 saturation 97%. Patient complaining slight chest tightness. No complaint of shortness of breath and cough. Objective Vital Signs - 12hr 01/17/19 01/17/19 01/17/19 07:17 09:25 09:55 Temperature 98.0 F 97.8 F Pulse Rate 78 81 76 Pulse Rate [ From Monitor] Respiratory 20 18 Rate Blood Pressure 126/69 126/53 121/62 O2 Sat by Pulse 97 Oximetry 01/17/19 01/17/19 01/17/19 10:00 10:15 10:30 Temperature Pulse Rate 74 71 70 Pulse Rate [ From Monitor] Respiratory Rate Blood Pressure 124/63 121/62 138/71 O2 Sat by Pulse Oximetry 01/17/19 01/17/19 01/17/19 10:45 11:00 11:15 Temperature Pulse Rate 68 72 73 Pulse Rate [ From Monitor] Respiratory Rate Blood Pressure 133/73 130/71 131/70 O2 Sat by Pulse Oximetry 01/17/19 01/17/19 01/17/19 11:30 11:45 12:00 Temperature Pulse Rate 77 78 78 Pulse Rate [ From Monitor] Respiratory Rate Blood Pressure 114/60 124/66 123/61 O2 Sat by Pulse Oximetry 01/17/19 01/17/19 01/17/19 12:15 12:30 12:45 Temperature Pulse Rate 81 82 83 Pulse Rate [ From Monitor] Respiratory Rate Blood Pressure 129/65 127/68 121/63 O2 Sat by Pulse Oximetry 01/17/19 01/17/19 01/17/19 13:00 13:15 13:30 Temperature Pulse Rate 79 80 80 Pulse Rate [ From Monitor] Respiratory Rate Blood Pressure 120/62 123/61 109/52 O2 Sat by Pulse Oximetry 01/17/19 01/17/19 01/17/19 15:56 16:21 17:03 Temperature Pulse Rate 91 H 95 H Pulse Rate [ 91 H From Monitor] Respiratory 18 Rate Blood Pressure 110/70 O2 Sat by Pulse Oximetry Constitutional: no acute distress, alert Eyes: non-icteric Neck: supple, no lymphadenopathy Effort: normal Ascultation: Bilateral: diminished breath sounds Cardiovascular: regular rate and rhythm Gastrointestinal: normoactive bowel sounds, soft, non-tender Integumentary: normal Extremities: no cyanosis, no edema Neurologic: normal mental status, non-focal exam, pupils equal and round, CN II- XII normal Psychiatric: mood appropriate CBC and BMP: 01/15/19 20:36 01/17/19 10:06 ABG, PT/INR, D-dimer: PT/INR, D-dimer PT 14.2 Sec. (12.2-14.9) 01/15/19 20:36 INR 1.04 (0.87-1.13) 01/15/19 20:36 Abnormal lab findings: Abnormal Labs 01/15/19 01/15/19 01/15/19 20:36 20:36 23:00 RDW 18.2 H Sodium 132 L Potassium 6.5 H* Chloride 96.4 L Carbon Dioxide 17 L BUN 86 H Creatinine 17.2 H Glucose POC Glucose Calcium 10.4 H Phosphorus 6.20 H Magnesium 2.50 H Hepatitis C Antibody Reactive A 01/16/19 01/16/19 01/17/19 11:16 18:00 10:06 RDW Sodium 134 L Potassium 5.1 H D Chloride 93.3 L Carbon Dioxide BUN 51 H Creatinine 11.5 H Glucose 114 H POC Glucose 111 H 141 H Calcium Phosphorus Magnesium Hepatitis C Antibody 01/17/19 16:20 RDW Sodium Potassium Chloride Carbon Dioxide BUN Creatinine Glucose POC Glucose 153 H Calcium Phosphorus Magnesium Hepatitis C Antibody Chest x-ray: report reviewed (Reported cardiomegaly with mild pulmonary edema.), image reviewed
[2019-01-18] MEDS: HumuLIN R SUB-Q SCH ×4 (07:20→22:48)
[2019-01-18] MEDS: RENVELA PO SCH ×3 (07:39→17:19)
[2019-01-18] MEDS: APRESOLINE PO SCH ×2 (07:39→14:24)
[2019-01-18 08:38] LABS: Calcium 9.9 mg/dL (8.4-10.2)
--- NOTE | 2019-01-18 08:47 | Progress Note ---
Subjective Interval history: Patient was seen today for follow-up on multiple renal related issues Wants to know when she will be able to go home Vitals labs intake output medications were reviewed Social history: Reviewed Allergies: Reviewed Family history: Reviewed Physical examination HEENT: Oral mucosa moist no pallor or icterus Neck: Supple no JVD Chest: Bilateral crackles CVS: Regular rate and rhythm S1 and S2 heard Abdomen: Soft nontender no suprapubic masses no organomegaly appreciable Extremity: Dry skin less than 1+ peripheral edema Musculoskeletal: No joint effusion noted in knees and ankle Neurological: Alert awake Dermatology: No petechial rashes Psychiatry: No evidence of any agitation and aggression noted Assessment and plan End-stage renal disease: Patient will continue with hemodialysis 3 times a week for now patient noted to be severely noncompliant admission BUN was 86 creatinine 17 which is currently at 29 and 7.3 potassium has normalized 4.4, educated that she is high mortality risk with history of noncompliance this has been an issue in the clinic as well Anemia in end-stage renal disease: Monitor hemoglobin and hematocrit, erythropoietin as needed , current hemoglobin was 10.7, correction of uremia helps with improvement in hemoglobin Secondary hyperparathyroidism periodically check phosphorus and PTH level, goal phosphorus less than 5.5 PTH less than 600, educated about renal osteodystrophy phosphorus upon admission was 6.2 without dialysis; Hypertension and volume: , Adjust medications as needed, ultrafiltration as tolerated keep systolic blood pressure above 100, has had uncontrolled hypertension with fluid overload Malnutrition risk: High please consider high protein diet as well as nutrition follow-up, patient needs at least 1.5 g protein per KG body weight Dialysis access: Currently working well, discussed about monitoring Dietary counseling and education: Done at length to improve outcome with end- stage renal disease Patient was also educated about the hospital related comorbidities Overall prognosis appears to be guarded due to end-stage renal disease, dialysis status and other comorbidities I believe patient may benefit from psychiatric evaluation We'll continue to follow and make recommendation from renal standpoint Objective - Vital Signs Vital signs: Vital Signs - 12hr 01/17/19 01/18/19 01/18/19 22:01 02:43 03:35 Temperature 97.8 F Pulse Rate 97 H 78 79 Respiratory 20 Rate Blood Pressure 113/62 136/76 O2 Sat by Pulse 94 Oximetry 01/18/19 07:17 Temperature 98.6 F Pulse Rate 89 Respiratory 20 Rate Blood Pressure 148/77 O2 Sat by Pulse 93 Oximetry - Lab 01/15/19 20:36 01/18/19 07:51 Most recent lab results Calcium 9.9 mg/dL (8.4-10.2) 01/18/19 07:51 Phosphorus 6.20 mg/dL (2.5-4.5) H 01/15/19 20:36 Magnesium 2.50 mg/dL (1.7-2.3) H 01/15/19 20:36 Medications & Allergies - Medications Allergies/Adverse Reactions: Allergies No Known Allergies Allergy (Verified 03/16/18 17:27) Home Medications: Home Medications Medication Instructions Recorded Confirmed Last Taken Type LORazepam [Ativan] 1 mg PO Q8H PRN tablet 03/18/18 01/15/19 Unknown Rx Sevelamer Carbonate [Renvela] 800 mg PO AC tablet 03/18/18 01/15/19 Unknown Rx Minoxidil [Loniten] 2.5 mg PO BID 01/15/19 01/15/19 Unknown History cloNIDine [Catapres] 0.1 mg PO Q8HR 01/15/19 01/15/19 Unknown History Active Medications: Generic Name Dose Route Start Last Admin Trade Name Freq PRN Reason Stop Dose Admin Acetaminophen 650 mg 01/15/19 22:18 Tylenol PO Q4H PRN Fever >101 Clonidine HCl 0.3 mg 01/16/19 10:00 01/17/19 22:01 Catapres PO 0.3 mg QID [facility] Administration Dextrose 50 ml 01/15/19 22:22 D50w (25gm) Syringe IV PRN PRN Hypoglycemia Heparin Sodium (Porcine) 5,000 unit 01/16/19 10:00 01/17/19 21:59 Heparin SUB-Q 5,000 unit Q12HR [facility] Administration Hydralazine HCl 100 mg 01/16/19 14:00 01/18/19 07:39 Apresoline PO 100 mg TID [facility] Administration Nicardipine HCl 50 mg/ Sodium 250 mls @ 25 mls/hr 01/16/19 13:00 Chloride IV TITR [facility] Protocol 5 MG/HR Sodium Chloride 100 mls @ 999 mls/hr 01/17/19 09:30 Nacl 0.9% IV JULIEN PRN Hypotension Insulin Human Regular 0 units 01/16/19 07:30 01/18/19 07:20 Humulin R SUB-Q Not Given AC [facility] Protocol Insulin Human Regular 0 units 01/16/19 22:00 01/17/19 22:02 Humulin R SUB-Q Not Given QHS [facility] Protocol Labetalol HCl 10 mg 01/16/19 12:40 Normodyne IV Q4H PRN SBP >/=160 OR DBP >/=100 Minoxidil 2.5 mg 01/16/19 10:00 01/17/19 22:03 Loniten PO Not Given BID [facility] Ondansetron HCl 4 mg 01/15/19 22:18 Zofran IV Q8H PRN Nausea And Vomiting Sevelamer Carbonate 800 mg 01/16/19 07:30 01/18/19 07:39 Renvela PO 800 mg AC [facility] Administration
[2019-01-18] MEDS: CATAPRES PO SCH ×4 (08:59→21:37)
[2019-01-18] MEDS: HEPARIN SUB-Q SCH ×2 (08:59→21:38)
[2019-01-18] MEDS: LONITEN PO SCH ×2 (08:59→21:38)
--- NOTE | 2019-01-18 09:42 | Discharge Summary ---
<RAMONA MUELLER - Last Filed: 01/19/19 08:02> Providers - Providers Date of Admission: 01/16/19 09:45 Date of discharge: 01/18/19 Attending physician: BARTOLO DALLAS MD 01/15/19 20:24 Consult to Physician [CONS] Urgent Comment: Consulting Provider: ELO STAHL Physician Instructions: Reason For Exam: esrd 01/16/19 03:17 Consult to Physician [CONS] Routine Comment: Consulting Provider: PARAMJIT HARRIS Physician Instructions: Reason For Exam: ICU ADMISSION 01/17/19 14:28 Physical Therapy Evaluation and Treat [CONS] Routine Comment: Reason For Exam: WEAKNESS Primary care physician: MOMO THORNTON MD Hospitalization Condition: Fair Disposition: DC/[place]-03 SNF [facility] Core Measure Documentation - Palliative Care Palliative Care/ Comfort Measures: Not Applicable - Core Measures Any of the following diagnoses?: none - VTE Discharge Requirements Deep Vein Thrombosis/Pulmonary Embolism Present on Admission: No Contraindication No Overlap Therapy order at DC: Not Indicated Exam - Constitutional Vitals: Temp Pulse Resp BP Pulse Ox 98.6 F 94 H 20 130/80 93 01/18/19 07:17 01/18/19 08:59 01/18/19 07:17 01/18/19 08:59 01/18/19 07:17 Plan Activity: advance as tolerated Diet: diabetic Follow up with: PRIMARY MD HILLARY [Primary Care Provider] - 3-5 Days <BARTOLO DALLAS - Last Filed: 01/20/19 19:13> Providers - Providers Date of Admission: 01/16/19 09:45 Attending physician: BARTOLO DALLAS MD 01/15/19 20:24 Consult to Physician [CONS] Urgent Comment: Consulting Provider: ELO STAHL Physician Instructions: Reason For Exam: esrd 01/16/19 03:17 Consult to Physician [CONS] Routine Comment: Consulting Provider: PARAMJIT HARRIS Physician Instructions: Reason For Exam: ICU ADMISSION 01/17/19 14:28 Physical Therapy Evaluation and Treat [CONS] Routine Comment: Reason For Exam: WEAKNESS Primary care physician: MOMO THORNTON MD Exam - Constitutional Vitals: Temp Pulse Resp BP Pulse Ox 97.2 F L 67 18 131/80 94 01/19/19 12:55 01/19/19 12:55 01/19/19 12:55 01/19/19 12:55 01/19/19 07:03
--- NOTE | 2019-01-18 11:32 | Progress Note ---
<RAMONA MUELLER - Last Filed: 01/18/19 15:09> Assessment and Plan Assessment and plan: Ms Gaivn 63-year-old female who resides in a local senior living, with known history of ESRD on HD M/W/F and HTN, who presented to [facility] ED with c/o of painless dyspnea that is worst with exertion. Pt states that she missed dialysis for 2 days. She was found to be in hypertensive urgency with BP 220/177; subsequently admitted to ICU. She was placed on nitro gtt. Nitro gtt was d/c'd, her BP has been optimized on PO antihypertensive medication. She transferred to [facility] unit. ESRD on HD- M/W/F Volume overload Hyponatremia- likely secondary to volume overload Hyperkalemia Hyperphosphatemia HTN Urgency Hx of HTN Hyperglycemia Plan: HD done on 01/17; next HD will be Friday 01/19 Nephrology following Monitor Electrolytes Continue to monitor BP Continue home dose Clonidine and Minoxidil to optimize BP Discontinued Isosorbide Mononitrate, Metoprolol, and Nifedipine Continue IV Labetalol prn HgbA1c 4.5 Continue POC BG monitoring SSI coverage DVT PPX on heparin History Interval history: Pt is seen in [facility] Unit today. She received HD yesterday. She denies shortness of breath and has a saturation of 93% on room air. Her home antihypertensive medications have been resumed, and her blood pressure is controlled. She denies dyspnea with exertion, nausea, vomiting, headache. Hospitalist Physical - Physical exam Narrative exam: General appearance: Present: awake alert and oriented, no distress - EENT Eyes: Present: PERRL, EOM intact ENT: hearing intact, clear oral mucosa - Neck Neck: Present: supple, normal ROM - Respiratory Respiratory effort: normal Respiratory: bilateral: diminished (bases) - Cardiovascular Heart rate: 73 (bpm) Rhythm: regular Heart Sounds: Present: S1 & S2. Absent: rub, click - Extremities Extremities: pulses intact Extremity abnormal: edema - Peripheral Assessment Bilateral Lower Extremity Edema Degree: Trace Peripheral Pulses: within normal limits - Abdominal General gastrointestinal: soft, non-tender, normal bowel sounds - Integumentary Integumentary: Present: warm, dry - Psychiatric Psychiatric: appropriate mood/affect, cooperative - Neurologic Neurologic: CNII-XII intact, moves all extremities - Constitutional Vitals: Temp Pulse Resp BP Pulse Ox 98.6 F 94 H 20 130/80 93 01/18/19 07:17 01/18/19 08:59 01/18/19 07:17 01/18/19 08:59 01/18/19 07:17 General appearance: Present: no acute distress Results - Labs CBC & Chem 7: 01/15/19 20:36 01/18/19 07:51 Labs: Laboratory Last Values WBC 6.4 K/mm3 (4.5-11.0) 01/15/19 20:36 RBC 3.68 M/mm3 (3.65-5.03) 01/15/19 20:36 Hgb 10.7 gm/dl (10.1-14.3) 01/15/19 20:36 Hct 32.4 % (30.3-42.9) 01/15/19 20:36 MCV 88 fl (79-97) 01/15/19 20:36 MCH 29 pg (28-32) 01/15/19 20:36 MCHC 33 % (30-34) 01/15/19 20:36 RDW 18.2 % (13.2-15.2) H 01/15/19 20:36 Plt Count 232 K/mm3 (140-440) 01/15/19 20:36 PT 14.2 Sec. (12.2-14.9) 01/15/19 20:36 INR 1.04 (0.87-1.13) 01/15/19 20:36 Sodium 138 mmol/L (137-145) 01/18/19 07:51 Potassium 4.4 mmol/L (3.6-5.0) 01/18/19 07:51 Chloride 97.3 mmol/L (98-107) L 01/18/19 07:51 Carbon Dioxide 27 mmol/L (22-30) 01/18/19 07:51 Anion Gap 18 mmol/L 01/18/19 07:51 BUN 29 mg/dL (7-17) H 01/18/19 07:51 Creatinine 7.3 mg/dL (0.7-1.2) H 01/18/19 07:51 Estimated GFR 6 ml/min 01/18/19 07:51 BUN/Creatinine Ratio 4 % 01/18/19 07:51 Glucose 116 mg/dL (65-100) H 01/18/19 07:51 POC Glucose 106 (70-105) H 01/18/19 11:27 Hemoglobin A1c 4.5 % (4-6) 01/17/19 15:10 Calcium 9.9 mg/dL (8.4-10.2) 01/18/19 07:51 Phosphorus 6.20 mg/dL (2.5-4.5) H 01/15/19 20:36 Magnesium 2.50 mg/dL (1.7-2.3) H 01/15/19 20:36 Hepatitis A IgM Ab Non-reactive (NonReactive) 01/15/19 23:00 Hep Bs Antigen Non-reactive (Negative) 01/15/19 23:00 Hep B Core IgM Ab Non-reactive (NonReactive) 01/15/19 23:00 Hepatitis C Antibody Reactive (NonReactive) A 01/15/19 23:00 Active Medications - Current Medications Current Medications: Generic Name Dose Route Start Last Admin Trade Name Freq PRN Reason Stop Dose Admin Acetaminophen 650 mg 01/15/19 22:18 Tylenol PO Q4H PRN Fever >101 Clonidine HCl 0.3 mg 01/16/19 10:00 01/18/19 08:59 Catapres PO 0.3 mg QID TONY Administration Dextrose 50 ml 01/15/19 22:22 D50w (25gm) Syringe IV PRN PRN Hypoglycemia Heparin Sodium (Porcine) 5,000 unit 01/16/19 10:00 01/18/19 08:59 Heparin SUB-Q 5,000 unit Q12HR TONY Administration Hydralazine HCl 100 mg 01/16/19 14:00 01/18/19 07:39 Apresoline PO 100 mg TID TONY Administration Nicardipine HCl 50 mg/ Sodium 250 mls @ 25 mls/hr 01/16/19 13:00 Chloride IV TITR TONY Protocol 5 MG/HR Sodium Chloride 100 mls @ 999 mls/hr 01/17/19 09:30 Nacl 0.9% IV JULIEN PRN Hypotension Insulin Human Regular 0 units 01/16/19 07:30 01/18/19 11:32 Humulin R SUB-Q Not Given AC [facility] Protocol Insulin Human Regular 0 units 01/16/19 22:00 01/17/19 22:02 Humulin R SUB-Q Not Given QHS [facility] Protocol Labetalol HCl 10 mg 01/16/19 12:40 Normodyne IV Q4H PRN SBP >/=160 OR DBP >/=100 Minoxidil 2.5 mg 01/16/19 10:00 01/18/19 08:59 Loniten PO 2.5 mg BID TONY Administration Ondansetron HCl 4 mg 01/15/19 22:18 Zofran IV Q8H PRN Nausea And Vomiting Sevelamer Carbonate 800 mg 01/16/19 07:30 01/18/19 11:32 Renvela PO 800 mg AC TONY Administration <BARTOLO DALLAS M - Last Filed: 01/20/19 20:21> Assessment and Plan Assessment and plan: I saw and evaluated the patient. I agree with the findings and the plan of care as documented in the Nurse Practitioner's~note, with the following corrections and additions. BP meds optimized cont HD per nephrology Hospitalist Physical - Constitutional Vitals: Temp Pulse Resp BP Pulse Ox 97.2 F L 67 18 131/80 94 01/19/19 12:55 01/19/19 12:55 01/19/19 12:55 01/19/19 12:55 01/19/19 07:03 Results - Labs CBC & Chem 7: 01/15/19 20:36 01/19/19 Unknown Labs: Laboratory Last Values WBC 6.4 K/mm3 (4.5-11.0) 01/15/19 20:36 RBC 3.68 M/mm3 (3.65-5.03) 01/15/19 20:36 Hgb 10.7 gm/dl (10.1-14.3) 01/15/19 20:36 Hct 32.4 % (30.3-42.9) 01/15/19 20:36 MCV 88 fl (79-97) 01/15/19 20:36 MCH 29 pg (28-32) 01/15/19 20:36 MCHC 33 % (30-34) 01/15/19 20:36 RDW 18.2 % (13.2-15.2) H 01/15/19 20:36 Plt Count 232 K/mm3 (140-440) 01/15/19 20:36 PT 14.2 Sec. (12.2-14.9) 01/15/19 20:36 INR 1.04 (0.87-1.13) 01/15/19 20:36 POC ABG pH 7.486 (7.35-7.45) H 01/18/19 17:14 POC ABG pCO2 37.5 (35-45) 01/18/19 17:14 POC ABG pO2 70 (80-105) L 01/18/19 17:14 POC ABG HCO3 28.3 (22-26 mml/L) 01/18/19 17:14 POC ABG Total CO2 29 (23-27mmol/L) 01/18/19 17:14 POC ABG O2 Sat 95 01/18/19 17:14 POC ABG Base Excess 5 ((-2) - (+3)mmol/L) 01/18/19 17:14 FiO2 21 % 01/18/19 17:14 Sodium 129 mmol/L (137-145) L 01/19/19 Unknown Potassium 5.6 mmol/L (3.6-5.0) H 01/19/19 Unknown Chloride 96.4 mmol/L (98-107) L 01/19/19 Unknown Carbon Dioxide 21 mmol/L (22-30) L 01/19/19 Unknown Anion Gap 17 mmol/L 01/19/19 Unknown BUN 46 mg/dL (7-17) H 01/19/19 Unknown Creatinine 9.5 mg/dL (0.7-1.2) H 01/19/19 Unknown Estimated GFR 4 ml/min 01/19/19 Unknown BUN/Creatinine Ratio 5 % 01/19/19 Unknown Glucose 92 mg/dL (65-100) 01/19/19 Unknown POC Glucose 200 (70-105) H 01/19/19 07:09 Hemoglobin A1c 4.5 % (4-6) 01/17/19 15:10 Calcium 9.9 mg/dL (8.4-10.2) 01/19/19 Unknown Phosphorus 6.20 mg/dL (2.5-4.5) H 01/15/19 20:36 Magnesium 2.50 mg/dL (1.7-2.3) H 01/15/19 20:36 Hepatitis A IgM Ab Non-reactive (NonReactive) 01/15/19 23:00 Hep Bs Antigen Non-reactive (Negative) 01/15/19 23:00 Hep B Core IgM Ab Non-reactive (NonReactive) 01/15/19 23:00 Hepatitis C Antibody Reactive (NonReactive) A 01/15/19 23:00
--- NOTE | 2019-01-18 14:27 | Progress Note ---
Assessment and Plan Malignant hypertension Acute pulmonary edema ESRD on HD- M/W/F Hyponatremia Hyperkalemia Hyperphosphatemia - prn Supplemental oxygen to keep O2 sats>90% - outpatient sleep study - Supportive HD/UF per nephrology - continue Accuchecks with glycemic control, target blood glucose 140-180mg/dL - continue Bronchodilators per protocol - Follow up CXR in am - PT/OT/increase ambulation ... re-evaluate in am & prn Subjective Date of service: 01/18/19 Principal diagnosis: Malignant hypertension; Acute pulm edema; ESRD on HD; Hyperkalemia Interval history: Patient is seen today for: Malignant hypertension; Acute pulmonary edema; ESRD on HD- M/W/F; Hyponatremia; Hyperkalemia Seen and examined at bedside; 24hour events reviewed; nursing and respiratory care staff consulted; no adverse overnight events reported to me; resting peacefully in bed; off supplemental oxygen; BP's better cvontrolled; denies acute chest pains; No N/V/F/C Objective Vital Signs - 12hr 01/18/19 01/18/19 01/18/19 02:43 03:35 07:17 Temperature 97.8 F 98.6 F Pulse Rate 78 79 89 Respiratory 20 20 Rate Blood Pressure 136/76 148/77 O2 Sat by Pulse 94 93 Oximetry 01/18/19 01/18/19 08:59 13:33 Temperature 98.5 F Pulse Rate 94 H 73 Respiratory 20 Rate Blood Pressure 130/80 117/72 O2 Sat by Pulse 93 Oximetry Constitutional: alert, agitated (trying to sit out of bed), other (elderly looking obese AAF, normocephalic and atraumatic) Eyes: non-icteric ENT: oropharynx moist Neck: supple, no lymphadenopathy, no JVD, other (large neck circumference) Effort: mildly labored Ascultation: Bilateral: diminished breath sounds, rhonchi Percussion: Bilateral: not dull Cardiovascular: regular rate and rhythm, other (S1,S2, no mururs, gallops or rubs) Gastrointestinal: normoactive bowel sounds, soft, non-tender, non-distended Integumentary: normal Extremities: no cyanosis, no edema, pulses normal, no ischemia or petechiae Neurologic: normal mental status, non-focal exam, pupils equal and round, CN II- XII normal, motor strength normal and Psychiatric: mood appropriate, affect normal CBC and BMP: 01/15/19 20:36 01/18/19 07:51 ABG, PT/INR, D-dimer: PT/INR, D-dimer PT 14.2 Sec. (12.2-14.9) 01/15/19 20:36 INR 1.04 (0.87-1.13) 01/15/19 20:36 Abnormal lab findings: Abnormal Labs 01/15/19 01/15/19 01/15/19 20:36 20:36 23:00 RDW 18.2 H Sodium 132 L Potassium 6.5 H* Chloride 96.4 L Carbon Dioxide 17 L BUN 86 H Creatinine 17.2 H Glucose POC Glucose Calcium 10.4 H Phosphorus 6.20 H Magnesium 2.50 H Hepatitis C Antibody Reactive A 01/16/19 01/16/19 01/17/19 11:16 18:00 10:06 RDW Sodium 134 L Potassium 5.1 H D Chloride 93.3 L Carbon Dioxide BUN 51 H Creatinine 11.5 H Glucose 114 H POC Glucose 111 H 141 H Calcium Phosphorus Magnesium Hepatitis C Antibody 01/17/19 01/18/19 01/18/19 16:20 07:22 07:51 RDW Sodium Potassium Chloride 97.3 L Carbon Dioxide BUN 29 H Creatinine 7.3 H Glucose 116 H POC Glucose 153 H 108 H Calcium Phosphorus Magnesium Hepatitis C Antibody 01/18/19 11:27 RDW Sodium Potassium Chloride Carbon Dioxide BUN Creatinine Glucose POC Glucose 106 H Calcium Phosphorus Magnesium Hepatitis C Antibody Chest x-ray: image reviewed (bilateral increased interstitial markings with mild interstitial edema) Allied health notes reviewed: nursing
[2019-01-19 05:30] LABS: Calcium 9.9 mg/dL (8.4-10.2)
[2019-01-19] MEDS: HumuLIN R SUB-Q SCH (07:21)
[2019-01-19] MEDS: RENVELA PO SCH (07:22)
--- NOTE | 2019-01-19 08:10 | Discharge Summary ---
<RAMONA MUELLER - Last Filed: 01/19/19 15:25> Providers - Providers Date of Admission: 01/16/19 09:45 Date of discharge: 01/19/19 Attending physician: BARTOLO DALLAS MD 01/15/19 20:24 Consult to Physician [CONS] Urgent Comment: Consulting Provider: ELO STAHL Physician Instructions: Reason For Exam: esrd 01/16/19 03:17 Consult to Physician [CONS] Routine Comment: Consulting Provider: PARAMJIT HARRIS Physician Instructions: Reason For Exam: ICU ADMISSION 01/17/19 14:28 Physical Therapy Evaluation and Treat [CONS] Routine Comment: Reason For Exam: WEAKNESS Primary care physician: WHEAT SHIPPER Hospitalization Reason for admission: Hypertensive Urgency, ESRD, Volume Overload Condition: Fair Hospital course: Ms Gavin 63-year-old female who resides in a local intermediate, with known history of ESRD on HD M/W/F and HTN, who presented to [facility] ED with c/o of painless dyspnea that is worst with exertion. Pt states that she missed dialysis for 2 days. She was found to be in hypertensive urgency with BP 220/177; subsequently admitted to ICU. She was placed on nitro gtt. Nitro gtt was d/c'd, her BP has been optimized on PO antihypertensive medication.She received emergent dialysis on 01/15; followed by scheduled dialysis on 01/17. She hunt sferred to [facility] unit. Her electrolyte imbalances were corrected. Upon discharge she will resume normal M/W/F HD schedule. Diagnosis ESRD on HD- M/W/F Volume overload Hyponatremia- likely secondary to volume overload Hyperkalemia Hyperphosphatemia HTN Urgency Hx of HTN Hyperglycemia Disposition: DC/TX-03 [facility] Time spent for discharge: 33 minutes Core Measure Documentation - Palliative Care Palliative Care/ Comfort Measures: Not Applicable - Core Measures Any of the following diagnoses?: none - VTE Discharge Requirements Deep Vein Thrombosis/Pulmonary Embolism Present on Admission: No Contraindication No Overlap Therapy order at DC: Not Indicated Exam - Physical Exam Narrative exam: General appearance: Present: awake alert and oriented, no distress - EENT Eyes: Present: PERRL, EOM intact ENT: hearing intact, clear oral mucosa - Neck Neck: Present: supple, normal ROM - Respiratory Respiratory effort: normal Respiratory: bilateral: diminished (bases) - Cardiovascular Heart rate: 73 (bpm) Rhythm: regular Heart Sounds: Present: S1 & S2. Absent: rub, click - Extremities Extremities: pulses intact Extremity abnormal: edema - Peripheral Assessment Bilateral Lower Extremity Edema Degree: Trace Peripheral Pulses: within normal limits - Abdominal General gastrointestinal: soft, non-tender, normal bowel sounds - Integumentary Integumentary: Present: warm, dry - Psychiatric Psychiatric: appropriate mood/affect, cooperative - Neurologic Neurologic: CNII-XII intact, moves all extremities - Constitutional Vitals: Temp Pulse Resp BP Pulse Ox 97.8 F 66 20 151/93 94 01/19/19 07:03 01/19/19 07:03 01/19/19 07:03 01/19/19 07:03 01/19/19 07:03 Plan Activity: no restrictions Diet: low salt, renal Follow up with: PRIMARY CARE, [Primary Care Provider] - 3-5 Days <BARTOLO DALLAS - Last Filed: 01/21/19 22:56> Providers - Providers Date of Admission: 01/16/19 09:45 Attending physician: BARTOLO DALLAS MD 01/15/19 20:24 Consult to Physician [CONS] Urgent Comment: Consulting Provider: ELO STAHL Physician Instructions: Reason For Exam: esrd 01/16/19 03:17 Consult to Physician [CONS] Routine Comment: Consulting Provider: PARAMJIT HARRIS Physician Instructions: Reason For Exam: ICU ADMISSION 01/17/19 14:28 Physical Therapy Evaluation and Treat [CONS] Routine Comment: Reason For Exam: WEAKNESS Primary care physician: WHEAT SHIPPER Hospitalization Hospital course: I saw and evaluated the patient. I agree with the findings and the plan of care as documented in the Nurse Practitioner's~note, with the following corrections and additions. htn urgency resolved with resumption of home meds and after HD Exam - Constitutional Vitals: Temp Pulse Resp BP Pulse Ox 97.2 F L 67 18 131/80 94 01/19/19 12:55 01/19/19 12:55 01/19/19 12:55 01/19/19 12:55 01/19/19 07:03
--- NOTE | 2019-01-19 08:26 | XRay Report ---
AP CHEST :01/19/19 CLINICAL: Followup CHF and pulmonary edema. COMPARISON:01/15/19 FINDINGS: Cardiomegaly with slightly greater heart enlargement than on the prior exam. The pulmonary vessels are prominent but are more distinct than on the prior exam. Previously identified reticular interstitial opacities have resolved. Mild blunting of the left costophrenic angle. The bones and soft tissues are normal. IMPRESSION: Interval improvement with resolution of pulmonary edema. Persistent cardiomegaly and pulmonary venous hypertension.
[2019-01-19] MEDS: CATAPRES PO SCH (09:04)
[2019-01-19] MEDS: LONITEN PO SCH (09:05)
[2019-01-19] MEDS: HEPARIN SUB-Q SCH (09:05)
--- NOTE | 2019-01-19 09:17 | Progress Note ---
Subjective Principal diagnosis: Malignant hypertension; Acute pulm edema; ESRD on HD; Hyperkalemia Interval history: Patient was seen today for follow-up on multiple renal related issues Wants to know when she will be able to go home Vitals labs intake output medications were reviewed Social history: Reviewed Allergies: Reviewed Family history: Reviewed Physical examination HEENT: Oral mucosa moist no pallor or icterus Neck: Supple no JVD Chest: Bilateral crackles CVS: Regular rate and rhythm S1 and S2 heard Abdomen: Soft nontender no suprapubic masses no organomegaly appreciable Extremity: Dry skin less than 1+ peripheral edema Musculoskeletal: No joint effusion noted in knees and ankle Neurological: Alert awake Dermatology: No petechial rashes Psychiatry: No evidence of any agitation and aggression noted Assessment and plan End-stage renal disease: Patient will continue with hemodialysis 3 times a week for now Will order for hemodialysis treatment today, she is currently on Tuesday schedule, 3 hour 45 minute Noncompliant admitted with volume overload hyperkalemia uncontrolled hyp ertension Hyperkalemia would avoid any form of [facility] inhibitor as well as angiotensin receptor chani Hyponatremia patient has been drinking more fluid done required Anemia in end-stage renal disease: Monitor hemoglobin and hematocrit, erythropoietin as needed Secondary hyperparathyroidism periodically check phosphorus and PTH level, goal phosphorus less than 5.5 PTH less than 600, educated about renal osteodystrophy Phosphorus was elevated 6.2 she was not taking her binders was not eating right missing dialysis treatment Hypertension and volume: , Adjust medications as needed, ultrafiltration as tolerated keep systolic blood pressure above 100 currently much better controlled was admitted with uncontrolled hypertension, Malnutrition risk: High please consider high protein diet as well as nutrition follow-up, patient needs at least 1.5 g protein per KG body weight Dialysis access: Currently working well, discussed about monitoring Dietary counseling and education: Done at length to improve outcome with end- stage renal disease Patient was also educated about the hospital related comorbidities Overall prognosis appears to be guarded due to end-stage renal disease, dialysis status and other comorbidities I believe patient may benefit from psychiatric evaluation We'll continue to follow and make recommendation from renal standpoint Objective - Vital Signs Vital signs: Vital Signs - 12hr 01/18/19 01/19/19 01/19/19 21:37 03:01 07:03 Temperature 98.6 F 97.8 F Pulse Rate 66 66 66 Respiratory 20 20 Rate Blood Pressure 139/86 146/87 151/93 O2 Sat by Pulse 92 94 Oximetry - Lab 01/15/19 20:36 01/19/19 04:56 Most recent lab results Calcium 9.9 mg/dL (8.4-10.2) 01/19/19 04:56 Phosphorus 6.20 mg/dL (2.5-4.5) H 01/15/19 20:36 Magnesium 2.50 mg/dL (1.7-2.3) H 01/15/19 20:36 Medications & Allergies - Medications Allergies/Adverse Reactions: Allergies No Known Allergies Allergy (Verified 03/16/18 17:27) Home Medications: Home Medications Medication Instructions Recorded Confirmed Last Taken Type LORazepam [Ativan] 1 mg PO Q8H PRN tablet 03/18/18 01/15/19 Unknown Rx Sevelamer Carbonate [Renvela] 800 mg PO AC tablet 03/18/18 01/15/19 Unknown Rx Minoxidil [Loniten] 2.5 mg PO BID 01/15/19 01/15/19 Unknown History cloNIDine [Catapres] 0.1 mg PO Q8HR 01/15/19 01/15/19 Unknown History Active Medications: Generic Name Dose Route Start Last Admin Trade Name Freq PRN Reason Stop Dose Admin Acetaminophen 650 mg 01/15/19 22:18 Tylenol PO Q4H PRN Fever >101 Clonidine HCl 0.3 mg 01/16/19 10:00 01/19/19 09:04 Catapres PO Not Given QID [facility] Dextrose 50 ml 01/15/19 22:22 D50w (25gm) Syringe IV PRN PRN Hypoglycemia Heparin Sodium (Porcine) 5,000 unit 01/16/19 10:00 01/19/19 09:05 Heparin SUB-Q Not Given Q12HR [facility] Sodium Chloride 100 mls @ 999 mls/hr 01/17/19 09:30 Nacl 0.9% IV JULIEN PRN Hypotension Insulin Human Regular 0 units 01/16/19 07:30 01/19/19 07:21 Humulin R SUB-Q 2 units AC [facility] Administration Protocol Insulin Human Regular 0 units 01/16/19 22:00 01/18/19 22:48 Humulin R SUB-Q Not Given QHS [facility] Protocol Labetalol HCl 10 mg 01/16/19 12:40 Normodyne IV Q4H PRN SBP >/=160 OR DBP >/=100 Minoxidil 2.5 mg 01/16/19 10:00 01/19/19 09:05 Loniten PO Not Given BID TONY Ondansetron HCl 4 mg 01/15/19 22:18 Zofran IV Q8H PRN Nausea And Vomiting Sevelamer Carbonate 800 mg 01/16/19 07:30 01/19/19 07:22 Renvela PO 800 mg AC TONY Administration
[2019-01-19] MEDS ORDERED: NACL 0.9 (PRIMING MACHINE ONLY DIALYSIS) MC ONE (10:27)
--- NOTE | 2019-01-19 12:04 | Progress Note ---
Assessment and Plan Malignant hypertension Acute pulmonary edema ESRD on HD- M/W/F Hyponatremia Hyperkalemia Hyperphosphatemia - continue prn Supplemental oxygen to keep O2 sats>90% - needs outpatient sleep study - continue supportive HD/UF per nephrology prescription for toxin and volume clearance - continue Accuchecks with glycemic control, target blood glucose 140-180mg/dL - continue Bronchodilators per protocol - Follow up CXR in am - PT/OT/increase ambulation ... re-evaluate in am & prn Subjective Date of service: 01/19/19 Principal diagnosis: Malignant hypertension; Acute pulm edema; ESRD on HD; Hyperkalemia Interval history: Patient is seen today for: Malignant hypertension; Acute pulmonary edema; ESRD on HD- M/W/F; Hyponatremia; Hyperkalemia Seen and examined at bedside; 24hour events reviewed; nursing and respiratory care staff consulted; no adverse overnight events reported to me; resting peacefully in bed; remains on supplemental oxygen; denies acute chest pains or palpitations; No N/V/F/C Objective Vital Signs - 12hr 01/19/19 01/19/19 01/19/19 03:01 07:03 09:00 Temperature 98.6 F 97.8 F 98.2 F Pulse Rate 66 66 71 Respiratory 20 20 18 Rate Blood Pressure 146/87 151/93 151/93 O2 Sat by Pulse 92 94 Oximetry 01/19/19 01/19/19 01/19/19 09:10 09:15 09:30 Temperature Pulse Rate 69 65 67 Respiratory Rate Blood Pressure 153/94 157/95 138/87 O2 Sat by Pulse Oximetry 01/19/19 01/19/19 01/19/19 09:45 10:00 10:15 Temperature Pulse Rate 64 64 64 Respiratory Rate Blood Pressure 147/94 144/49 139/94 O2 Sat by Pulse Oximetry 01/19/19 01/19/19 01/19/19 10:30 10:45 11:00 Temperature Pulse Rate 65 69 67 Respiratory Rate Blood Pressure 150/94 127/83 154/93 O2 Sat by Pulse Oximetry 01/19/19 11:15 Temperature Pulse Rate 67 Respiratory Rate Blood Pressure 143/92 O2 Sat by Pulse Oximetry Constitutional: alert, agitated (trying to sit out of bed), other (elderly looking obese AAF, normocephalic and atraumatic) Eyes: non-icteric ENT: oropharynx moist Neck: supple, no lymphadenopathy, no JVD, other (large neck circumference) Effort: mildly labored Ascultation: Bilateral: diminished breath sounds, rhonchi Percussion: Bilateral: not dull Cardiovascular: regular rate and rhythm, other (S1,S2, no mururs, gallops or rubs) Gastrointestinal: normoactive bowel sounds, soft, non-tender, non-distended Integumentary: normal Extremities: no cyanosis, no edema, pulses normal, no ischemia or petechiae Neurologic: normal mental status, non-focal exam, pupils equal and round, CN II- XII normal, motor strength normal and Psychiatric: mood appropriate, affect normal CBC and BMP: 01/15/19 20:36 01/19/19 Unknown ABG, PT/INR, D-dimer: ABG POC ABG pH 7.486 (7.35-7.45) H 01/18/19 17:14 POC ABG pCO2 37.5 (35-45) 01/18/19 17:14 POC ABG pO2 70 (80-105) L 01/18/19 17:14 POC ABG HCO3 28.3 (22-26 mml/L) 01/18/19 17:14 POC ABG Total CO2 29 (23-27mmol/L) 01/18/19 17:14 POC ABG O2 Sat 95 01/18/19 17:14 PT/INR, D-dimer PT 14.2 Sec. (12.2-14.9) 01/15/19 20:36 INR 1.04 (0.87-1.13) 01/15/19 20:36 Abnormal lab findings: Abnormal Labs 01/15/19 01/15/19 01/15/19 20:36 20:36 23:00 RDW 18.2 H POC ABG pH POC ABG pO2 Sodium 132 L Potassium 6.5 H* Chloride 96.4 L Carbon Dioxide 17 L BUN 86 H Creatinine 17.2 H Glucose POC Glucose Calcium 10.4 H Phosphorus 6.20 H Magnesium 2.50 H Hepatitis C Antibody Reactive A 01/16/19 01/16/19 01/17/19 11:16 18:00 10:06 RDW POC ABG pH POC ABG pO2 Sodium 134 L Potassium 5.1 H D Chloride 93.3 L Carbon Dioxide BUN 51 H Creatinine 11.5 H Glucose 114 H POC Glucose 111 H 141 H Calcium Phosphorus Magnesium Hepatitis C Antibody 01/17/19 01/18/19 01/18/19 16:20 07:22 07:51 RDW POC ABG pH POC ABG pO2 Sodium Potassium Chloride 97.3 L Carbon Dioxide BUN 29 H Creatinine 7.3 H Glucose 116 H POC Glucose 153 H 108 H Calcium Phosphorus Magnesium Hepatitis C Antibody 01/18/19 01/18/19 01/18/19 11:27 17:14 22:41 RDW POC ABG pH 7.486 H POC ABG pO2 70 L Sodium Potassium Chloride Carbon Dioxide BUN Creatinine Glucose POC Glucose 106 H 114 H Calcium Phosphorus Magnesium Hepatitis C Antibody 01/19/19 01/19/19 04:56 07:09 RDW POC ABG pH POC ABG pO2 Sodium 129 L D Potassium 5.6 H D Chloride 96.4 L Carbon Dioxide 21 L BUN 46 H Creatinine 9.5 H Glucose POC Glucose 200 H Calcium Phosphorus Magnesium Hepatitis C Antibody Allied health notes reviewed: nursing
[2019-01-19 12:16] LABS: BUN/Creatinine Ratio 5; Blood Urea Nitrogen 46 mg/dL (7-17); Calcium 9.9 mg/dL (8.4-10.2)
[2019-01-19 12:58] VITALS: BP 131/80
== END 2019-01-19 14:00 | DRG 640 ==
LOC: ED 19:35 → CC1 21:58 → OBSVTOIN 01-16 09:45 → 2B-ACE 01-16 18:16
PROVIDERS: ADMIT Internal Medicine; ATTEND Internal Medicine
PROC: 5A1D70Z Performance of Urinary Filtration, Intermittent, Less than 6 Hours Per Day (ICD-10-PCS; 2019-01-16)
PROC: 5A1D70Z Performance of Urinary Filtration, Intermittent, Less than 6 Hours Per Day (ICD-10-PCS; 2019-01-17)
PROC: 4A033R1 Measurement of Arterial Saturation, Peripheral, Percutaneous Approach (ICD-10-PCS; principal; 2019-01-18)
PROC: 5A1D70Z Performance of Urinary Filtration, Intermittent, Less than 6 Hours Per Day (ICD-10-PCS; 2019-01-19)
DX: E87.70 Fluid overload, unspecified (principal); J81.0 Acute pulmonary edema; N18.6 End stage renal disease; I12.0 Hypertensive chronic kidney disease with stage 5 chronic kidney disease or end stage renal disease; N25.81 Secondary hyperparathyroidism of renal origin; E87.2 Acidosis; E87.1 Hypo-osmolality and hyponatremia; E87.5 Hyperkalemia; I16.0 Hypertensive urgency; E83.39 Other disorders of phosphorus metabolism; E11.65 Type 2 diabetes mellitus with hyperglycemia; E11.22 Type 2 diabetes mellitus with diabetic chronic kidney disease; E11.51 Type 2 diabetes mellitus with diabetic peripheral angiopathy without gangrene; F03.90 Unspecified dementia, unspecified severity, without behavioral disturbance, psychotic disturbance, mood disturbance, and anxiety; D63.1 Anemia in chronic kidney disease; Z99.2 Dependence on renal dialysis; Z87.891 Personal history of nicotine dependence; Z79.899 Other long term (current) drug therapy; Z91.14 Patient's other noncompliance with medication regimen
CPT/HCPCS: 36415; 36600; 71045; 80048; 80074; 82803; 82962; 83036; 83735; 84100; 85027; 85610; 93005; 93010; 96365; 96375; G0378; J0610; J1644; J1815; J7030

== ENCOUNTER 2019-01-27 01:15 | Emergency (ER) | payer MEDICARE ==
[2019-01-27] MEDS ORDERED: ASPIRIN PO ONE (01:57)
--- NOTE | 2019-01-27 02:34 | XRay Report ---
PROCEDURE: XR CHEST 1V AP TECHNIQUE: Chest radiograph single view. HISTORY: Chest Pain COMPARISONS: None . FINDINGS: Heart: Normal. Mediastinum/Vessels: Normal. Lungs/Pleural space: Normal. Bony thorax: No acute osseous abnormality. Life support devices: None. IMPRESSION: No acute cardiopulmonary abnormality. This document is electronically signed by Elizabeth Levi DO., Jan 27 2019 02:32:31 AM ET
--- NOTE | 2019-01-27 02:46 | Emergency Department Report ---
ED Chest Pain HPI - General Chief Complaint: Chest Pain Stated Complaint: CHEST PAIN Time Seen by Provider: 01/27/19 02:45 Source: patient, EMS (ems notes not available at time of chart dictation), RN notes reviewed, old records reviewed Mode of arrival: Stretcher Limitations: No Limitations - History of Present Illness Initial Comments: Primary care Dr.: Dr. Jarad Jacobo Cardiology: Dr. Webb Nephrology: Dr. Lomeli Past medical history: End-stage renal disease, on dialysis, Tuesday, , Tuesday, hypertension, diabetes, peripheral vascular disease, right upper extremity graft Patient is accompanied by her sister Mercy; [phone]. The patient's sister indicates the patient had a cardiac stress test within the past February 2018 at [facility]. She reports the stress test was within normal limits. The patient presents to the emergency room today with a complaint of nontraumatic right-sided chest wall pain. The pain has been present for a few days. The pain increases with palpation. It decreases with rest. There is no vomiting, diaphoresis. There is chronic shortness of breath. The patient does not endorse posterior leg pain or leg swelling. The patient makes no complaint of headache, neck pain, abdominal pain, irritative or obstructive urinary symptoms. Patient was recently admitted to this hospital f or hyperkalemia, and hypertensive urgency. She was treated supportively and symptomatically. MD Complaint: chest pain -: Gradual, days(s) Onset: during rest Pain Location: right chest Pain Radiation: none Severity: moderate Quality: aching Improves With: nothing, rest Worsens With: palpation Aspirin use within the Past 7 Days: (1) Yes - Related Data On Oral Contraceptives: No Home Medications Medication Instructions Recorded Confirmed Last Taken Minoxidil [Loniten] 2.5 mg PO BID 01/15/19 01/23/19 Unknown cloNIDine [Catapres] 0.1 mg PO Q8HR 01/15/19 01/23/19 Unknown Previous Rx's Medication Instructions Recorded Last Taken Type LORazepam [Ativan] 1 mg PO Q8H PRN tablet 03/18/18 Unknown Rx Sevelamer Carbonate [Renvela] 800 mg PO AC tablet 03/18/18 Unknown Rx hydrALAZINE [Apresoline TAB] 100 mg PO TID #90 tab 01/25/19 Unknown Rx Allergies Allergy/AdvReac Type Severity Reaction Status Date / Time No Known Allergies Allergy Verified 03/16/18 17:27 Heart Score - HEART Score History: Slightly suspicious EKG: Non-specific Age: 45-65 Risk factors: > 3 risk factors or hx of atherosclerotic disease Troponin: 1-3x normal limit HEART Score: 5 - Critical Actions Critical Actions: 4-6 pts:12-16.6% risk of adverse cardiac event. Should be admitted ED Review of Systems ROS: Stated complaint: CHEST PAIN Other details as noted in HPI Constitutional: malaise Eyes: denies: eye discharge ENT: denies: epistaxis Respiratory: denies: wheezing Cardiovascular: chest pain Gastrointestinal: denies: abdominal pain, nausea, vomiting Genitourinary: denies: dysuria Musculoskeletal: arthralgia, myalgia Skin: denies: lesions Neurological: weakness ED Past Medical Hx - Past Medical History Previous Medical History?: Yes Hx Hypertension: Yes Hx Congestive Heart Failure: No Hx Diabetes: Yes Hx Renal Disease: Yes ([id number]) Hx Asthma: No Hx COPD: No Hx Dementia: Yes Additional medical history: Dementia, PVD, Diabetes - Surgical History Past Surgical History?: Yes Additional Surgical History: right chest permcath - Social History Smoking Status: Current Some Day Smoker Substance Use Type: None - Medications Home Medications: Home Medications Medication Instructions Recorded Confirmed Last Taken Type LORazepam [Ativan] 1 mg PO Q8H PRN tablet 03/18/18 01/23/19 Unknown Rx Sevelamer Carbonate [Renvela] 800 mg PO AC tablet 03/18/18 01/23/19 Unknown Rx Minoxidil [Loniten] 2.5 mg PO BID 01/15/19 01/23/19 Unknown History cloNIDine [Catapres] 0.1 mg PO Q8HR 01/15/19 01/23/19 Unknown History hydrALAZINE [Apresoline TAB] 100 mg PO TID #90 tab 01/25/19 Unknown Rx ED Physical Exam - General Limitations: No Limitations General appearance: in no apparent distress - Head Head exam: Present: atraumatic, normocephalic - Eye Eye exam: Present: normal appearance, EOMI. Absent: nystagmus - ENT ENT exam: Present: normal exam, normal orophraynx, mucous membranes moist, normal external ear exam - Neck Neck exam: Present: normal inspection, full ROM. Absent: tenderness, meningismus - Respiratory Respiratory exam: Present: normal lung sounds bilaterally, chest wall tenderness. Absent: respiratory distress - Cardiovascular Cardiovascular Exam: Present: normal rhythm, tachycardia, normal heart sounds. Absent: systolic murmur, diastolic murmur, rubs, gallop - GI/Abdominal GI/Abdominal exam: Present: soft. Absent: distended, tenderness, guarding, rebound, rigid, pulsatile mass - Extremities Exam Extremities exam: Present: normal inspection (there is a right upper extremity graft, with no redness, pus or streaking.), full ROM, other (2+ pulses noted in the bilateral upper, lower extremities. Compartments soft. No long bony tenderness. The pelvis is stable.). Absent: calf tenderness - Back Exam Back exam: Present: normal inspection, full ROM. Absent: tenderness, CVA tenderness (R), paraspinal tenderness, vertebral tenderness - Neurological Exam Neurological exam: Present: alert, other (Extraocular movements intact. Tongue midline. No facial droop. Facial sensation intact to light touch in the V1, V2, V3 distribution bilaterally. 5 and 5 strength in 4 extremities.. Sensation is intact to light touch in 4 extremities.). Absent: motor sensory deficit - Psychiatric Psychiatric exam: Present: normal affect, normal mood - Skin Skin exam: Present: warm, dry, intact, normal color. Absent: rash ED Course Vital Signs 01/27/19 01/27/19 01/27/19 02:00 02:30 03:00 Temperature Pulse Rate 104 H 105 H 112 H Respiratory 26 H 21 22 Rate Blood Pressure 162/90 157/94 159/91 O2 Sat by Pulse 95 94 94 Oximetry 01/27/19 03:31 Temperature 99.1 F Pulse Rate Respiratory Rate Blood Pressure O2 Sat by Pulse Oximetry - Reevaluation(s) Reevaluation #1: 01/27/19 03:48 Differential diagnosis, including but not limited to: Costochondritis, pneumonia, pulmonary embolus, acute coronary syndrome Assessment and plan: 63-year-old female with reproducible right-sided chest wall pain, she's been endorsing chest pain over the past few days, and reportedly has had chest pain during her previous hospitalization, admission. Troponin is less than prior values, within the past 12 months has had an unremarkable cardiac nuclear stress test, EKG morphologically unchanged from prior, patient does not appear to have hyperkalemia or critical fluid overload. She is sleeping comfortably, in her stretcher, and in no acute distress. She may also have a history of dementia. The patient has received a cardiac risk stratification within the past few months by history. Her heart score is reviewed and appreciated, but given her recent risk stratification, unchanged EKG, low troponin were compared to prior values, the patient appears to be at low risk for major adverse cardiac event. Nuclear medicine study is pending at this time. 01/27/19 05:30 Reevaluation #2: 01/27/19 03:52 Change in plans. Nuclear medicine study out of doses to perform nuclear medicine examination. CT scan of the chest ordered. 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 Reevaluation #3: 01/27/19 03:57 Discussed with covering nephrology, Dr. Andrews, who indicates that it would be acceptable to discharge patient after IV contrast bolus, as patient will receive dialysis later on today. Reevaluation #4: 01/27/19 05:30 Medical records obtained from [facility]. The cardiac stress test is reviewed and appreciated. The test is interpreted as normal perfusion images. There is no evidence of infarction or ischemia. Stress EKG changes are reported as normal. This study suggests a low risk for cardiovascular event, and is associated with a cardiac mortality of less than 1% per year Reevaluation #5: 01/27/19 05:51 CT scan of the chest is negative for acute disease. Resting heart rate 103 bpm. When trending prior values for vital signs, this appears to be within the range of the patient's normal vital signs. Troponin down trending. EKG unchanged from prior. The patient at this point in time does not appear to have an ob jectively demonstrated emergent medical condition that requires hospitalization. She can follow up for outpatient dialysis later on today, and she can follow-up with her outpatient police shift commander on Tuesday or Tuesday. - EJ/Peripheral Line Neck L Time Out Performed: Yes Indications: nurses unable to establis Skin Cleansed in Sterile Fashion: Yes Size: 20 Dressing Placed: Tegaderm Patient Tolerated Procedure: well MAYCO score - Mayco Score Age > 65: (0) No Aspirin use within the Past 7 Days: (1) Yes 3 or more CAD Risk Factors: (1) Yes 2 or more Angina events in past 24 hrs: (0) No Known CAD with more than 50% Stenosis: (0) No Elevated Cardiac Markers: (1) Yes ST Deviation Greater than 0.5mm: (0) No MAYCO Score: 3 ED Medical Decision Making - Lab Data Result diagrams: 01/27/19 02:24 01/27/19 02:24 Vital Signs 01/27/19 01/27/19 01/27/19 02:00 02:30 03:00 Temperature Pulse Rate 104 H 105 H 112 H Respiratory 26 H 21 22 Rate Blood Pressure 162/90 157/94 159/91 O2 Sat by Pulse 95 94 94 Oximetry 01/27/19 03:31 Temperature 99.1 F Pulse Rate Respiratory Rate Blood Pressure O2 Sat by Pulse Oximetry Lab Results 01/27/19 01/27/19 01/27/19 Range/Units 02:24 02:24 02:24 WBC 4.6 (4.5-11.0) K/mm3 RBC 3.52 L (3.65-5.03) M/mm3 Hgb 10.2 (10.1-14.3) gm/dl Hct 31.2 (30.3-42.9) % MCV 89 (79-97) fl MCH 29 (28-32) pg MCHC 33 (30-34) % RDW 17.8 H (13.2-15.2) % Plt Count 262 (140-440) K/mm3 Lymph % (Auto) 19.3 (13.4-35.0) % Kern % (Auto) 15.4 H (0.0-7.3) % Eos % (Auto) 1.7 (0.0-4.3) % Baso % (Auto) 0.6 (0.0-1.8) % Lymph # 0.9 L (1.2-5.4) K/mm3 Kern # 0.7 (0.0-0.8) K/mm3 Eos # 0.1 (0.0-0.4) K/mm3 Baso # 0.0 (0.0-0.1) K/mm3 Seg Neutrophils % 63.0 (40.0-70.0) % Seg Neutrophils # 2.9 (1.8-7.7) K/mm3 PT 13.5 (12.2-14.9) Sec. INR 0.97 (0.87-1.13) D-Dimer (0-234) ng/mlDDU Sodium 135 L (137-145) mmol/L Potassium 4.8 (3.6-5.0) mmol/L Chloride 93.9 L (98-107) mmol/L Carbon Dioxide 25 (22-30) mmol/L Anion Gap 21 mmol/L BUN 35 H (7-17) mg/dL Creatinine 8.5 H (0.7-1.2) mg/dL Estimated GFR 5 ml/min BUN/Creatinine Ratio 4 % Glucose 93 (65-100) mg/dL Calcium 10.3 H (8.4-10.2) mg/dL Magnesium (1.7-2.3) mg/dL Troponin T 0.097 H (0.00-0.029) ng/mL 01/27/19 01/27/19 Range/Units 02:24 02:24 WBC (4.5-11.0) K/mm3 RBC (3.65-5.03) M/mm3 Hgb (10.1-14.3) gm/dl Hct (30.3-42.9) % MCV (79-97) fl MCH (28-32) pg MCHC (30-34) % RDW (13.2-15.2) % Plt Count (140-440) K/mm3 Lymph % (Auto) (13.4-35.0) % Kern % (Auto) (0.0-7.3) % Eos % (Auto) (0.0-4.3) % Baso % (Auto) (0.0-1.8) % Lymph # (1.2-5.4) K/mm3 Kern # (0.0-0.8) K/mm3 Eos # (0.0-0.4) K/mm3 Baso # (0.0-0.1) K/mm3 Seg Neutrophils % (40.0-70.0) % Seg Neutrophils # (1.8-7.7) K/mm3 PT (12.2-14.9) Sec. INR (0.87-1.13) D-Dimer 584.39 H (0-234) ng/mlDDU Sodium (137-145) mmol/L Potassium (3.6-5.0) mmol/L Chloride (98-107) mmol/L Carbon Dioxide (22-30) mmol/L Anion Gap mmol/L BUN (7-17) mg/dL Creatinine (0.7-1.2) mg/dL Estimated GFR ml/min BUN/Creatinine Ratio % Glucose (65-100) mg/dL Calcium (8.4-10.2) mg/dL Magnesium 1.70 (1.7-2.3) mg/dL Troponin T (0.00-0.029) ng/mL - EKG Data -: EKG Interpreted by Ca EKG shows normal: sinus rhythm Rate: tachycardia - EKG Data 01/27/19 03:50 This is a sinus tachycardia, 108 bpm, borderline leftward axis, left anterior fascicular block, atrial enlargement, poor R wave progression, nonspecific ST abnormality, this is an abnormal EKG, this is not consistent with ST elevation myocardial infarction, this appears to be unchanged from prior EKG from 01/24/2019. - Radiology Data Radiology results: report reviewed, image reviewed Print Report Referring Physician: SYLVIA GONZALES Patient Name: LAURO CALDWELL Date of : 1955 Sex: Female Report Date: 2019-01-27 Report Status: [place] [address] XRay Report Signed Patient: LAURO CALDWELL MR#: [id number] 440 : 1955 Acct:[id number] Age/Sex: 63 / F ADM Date: 01/27/19 Loc: ED Attending Dr: Ordering Physician: SYLVIA GONZALES MD Date of Service: 01/27/19 Procedure(s): XR chest 1V ap Accession Number(s): [id number] cc: SYLVIA GONZALES MD Fluoro Time In Minutes: PROCEDURE: XR CHEST 1V AP TECHNIQUE: Chest radiograph single view. HISTORY: Chest Pain COMPARISONS: None . FINDINGS: Heart: Normal. Mediastinum/Vessels: Normal. Lungs/Pleural space: Normal. Bony thorax: No acute osseous abnormality. Life support devices: None. IMPRESSION: No acute cardiopulmonary abnormality. This document is electronically signed by Ivon Levi DO., Jan 27 2019 02:32:31 AM ET Transcribed By: [facility] Dictated By: IVON LEVI MD Electronically Authenticated By: IVON LEVI MD Signed Date/Time: 01/27/19 3544 Critical care attestation.: If time is entered above; I have spent that time in minutes in the direct care of this critically ill patient, excluding procedure time. ED Disposition Clinical Impression: ESRD (end stage renal disease), Chest wall pain Disposition: TO HOME OR SELFCARE Is pt being admited?: No Does the pt Need Aspirin: No Condition: Stable Instructions: Chest Pain (ED) Additional Instructions: Continue outpatient medications. Follow up later on today for outpatient dialysis. Follow-up with your police shift commander within the next 3-5 days. Return to the emergency room right away with you, worsened or different symptoms, or symptoms not present on the initial ER evaluation. Referrals: LAST WEBB MD [Staff Physician] - 3-5 Days ELO LOMELI MD [Staff Physician] - 3-5 Days
[2019-01-27 03:00] LABS: INR 0.97 (0.87-1.13)
[2019-01-27 03:01] LABS: Calcium 10.3 mg/dL (8.4-10.2)
[2019-01-27] MEDS ORDERED: TYLENOL PO ONE (03:02)
[2019-01-27] MEDS ORDERED: XYLOCAINE TOPICAL 4% TP ONE (03:03)
[2019-01-27 03:24] LABS: Basophils % (Auto) 0.6 % (0.0-1.8); Eosinophils # (Auto) 0.1 K/mm3 (0.0-0.4); Eosinophils % (Auto) 1.7 % (0.0-4.3); Hematocrit 31.2 % (30.3-42.9); Hemoglobin 10.2 gm/dl (10.1-14.3); Lymphocytes # (Auto) 0.9 K/mm3 (1.2-5.4); Lymphocytes % (Auto) 19.3 % (13.4-35.0); Mean Corpuscular HGB Conc 33 % (30-34); Mean Corpuscular Volume 89 fl (79-97); Monocytes # (Auto) 0.7 K/mm3 (0.0-0.8); Monocytes % (Auto) 15.4 % (0.0-7.3); Platelet Count 262 K/mm3 (140-440); Red Blood Count 3.52 M/mm3 (3.65-5.03); Red Cell Distribution Width 17.8 % (13.2-15.2)
--- NOTE | 2019-01-27 05:49 | Cat Scan Report ---
PROCEDURE: CT ANGIO CHEST TECHNIQUE: Computerized tomographic angiography of the chest was performed after the IV injection of iodinated nonionic contrast including image processing. The image data was postprocessed using 2-di mensional multiplanar reformatted (MPR) and 3-dimensional (MIP and/or volume rendered) techniques. Au tomated exposure control, adjustment of mA and/or kV according to patient size, or iterative reconstr uction dose optimization techniques were utilized. CT DOSE LENGTH PRODUCT: 700.7 mGycm HISTORY: cp + d diumer COMPARISONS: None . FINDINGS: Heart and pericardium: Normal. Thoracic aorta: Mild atherosclerosis of the aorta.. Pulmonary vasculature: There is no evidence of pulmonary arterial emboli.. Lymph nodes: No enlarged thoracic lymph nodes. Lungs: There is slight atelectasis in both lower lungs. No consolidation, effusion or pneumothorax. Underlying chronic obstructive changes are noted.. Pleural space: No effusion, thickening, or pneumothorax. Musculoskeletal structures: No significant abnormality. Upper abdominal structures: No significant abnormality. IMPRESSION: There is no evidence of pulmonary arterial emboli. Mild atelectasis both lower lungs. No consolidation or effusion. . This document is electronically signed by Elizabeth Levi DO., Jan 27 2019 05:46:51 AM ET
[2019-01-27 06:33] VITALS: BP 162/99
== END 2019-01-27 07:02 | disposition home or self-care (01) ==
LOC: ED 01:15
DX: R07.89 Other chest pain (principal); I12.0 Hypertensive chronic kidney disease with stage 5 chronic kidney disease or end stage renal disease; E11.22 Type 2 diabetes mellitus with diabetic chronic kidney disease; N18.6 End stage renal disease; F17.200 Nicotine dependence, unspecified, uncomplicated; I16.0 Hypertensive urgency; I73.9 Peripheral vascular disease, unspecified; E87.5 Hyperkalemia; Z99.2 Dependence on renal dialysis
CPT/HCPCS: 36415; 36569; 71045; 71275; 80048; 83735; 84484; 85025; 85379; 85610; 93005; 93010; 99285; Q9967

== ENCOUNTER 2020-08-05 18:22 | Observation (INO) | payer MEDICARE ==
--- NOTE | 2020-08-05 18:26 | Event Note ---
ED Screening Note Date of service: 08/05/20 Time: 18:25 ED Screening Note: Patient complains of right sternal/parasternal chest pain x2 weeks ESRD currently on dialysis, states last HD was Tuesday This initial assessment/diagnostic orders/clinical plan/treatment(s) is/are subject to change based on patients health status, clinical progression and re- assessment by fellow clinical providers in the ED. Further treatment and workup at subsequent clinical providers discretion. Patient/guardian urged not to elope from the ED as their condition may be serious if not clinically assessed and managed. Initial orders include: Labs EKG Chest x-ray
[2020-08-05 18:57] LABS: Hematocrit 30.9 % (30.3-42.9); Hemoglobin 10.1 gm/dl (10.1-14.3); Mean Corpuscular HGB Conc 33 % (30-34); Mean Corpuscular Volume 93 fl (79-97); Platelet Count 243 K/mm3 (140-440); Red Blood Count 3.31 M/mm3 (3.65-5.03); Red Cell Distribution Width 16.6 % (13.2-15.2)
[2020-08-05 19:13] LABS: Albumin 3.7 g/dL (3.9-5); Blood Urea Nitrogen 54 mg/dL (7-17); Calcium 9.1 mg/dL (8.4-10.2); Hemolysis Index 7
[2020-08-05 19:15] LABS: Alanine Aminotransferase < 5 units/L (7-56); BUN/Creatinine Ratio 4
[2020-08-05 19:30] LABS: HDL Cholesterol 51 mg/dL (40-59); LDL Cholesterol,Direct 63 mg/dL (50-130)
[2020-08-05 19:37] LABS: RBC Morphology Normal; Total Cells Counted 100
--- NOTE | 2020-08-05 19:40 | XRay Report ---
CHEST 1 VIEW INDICATION: Chest pain for 2 weeks. COMPARISON: 01/27/2019 FINDINGS: Support devices: Left IJ permacath terminates in the superior right atrium. Heart: Within normal limits. Lungs/Pleura: Mild pulmonary venous congestion has developed. No infiltrate, pleural fluid or pneumot horax. Additional findings: None. IMPRESSION: Mild pulmonary venous congestion. Signer Name: Leighton Jara Jr, MD Signed: 08/05/2020 7:39 PM Workstation Name: [id number]
--- NOTE | 2020-08-06 03:34 | Emergency Department Report ---
ED Chest Pain HPI - General Chief Complaint: Chest Pain Stated Complaint: CHEST PAIN 2 WEEKS Time Seen by Provider: 08/05/20 18:24 Source: patient Mode of arrival: Wheelchair Limitations: No Limitations - History of Present Illness Initial Comments: 64-year-old -[place] female with a past medical history of hypertension, hyperlipidemia, end-stage renal disease on dialysis, presents the ED with chest pain intermittent, for the past week. Pain is worse with exacerbation, improved with rest. No diaphoresis, no nausea, no vomiting, no shortness of breath. Denies any sick contacts or recent travel. MD Complaint: chest pain -: Gradual, week(s) (2) Onset: during rest, during exertion Pain Location: substernal Pain Radiation: none Severity scale (0 -10): 8 Quality: tightness Consistency: constant Improves With: nothing Worsens With: nothing Context: recent illness re: nausea Treatments Prior to Arrival: none - Related Data On Oral Contraceptives: No Home Medications Medication Instructions Recorded Confirmed Last Taken cloNIDine [Catapres] 0.1 mg PO Q8HR 01/15/19 01/23/19 Unknown minoxidiL [Loniten] 2.5 mg PO BID 01/15/19 01/23/19 Unknown Previous Rx's Medication Instructions Recorded Last Taken Type LORazepam [Ativan] 1 mg PO Q8H PRN tablet 03/18/18 Unknown Rx Sevelamer Carbonate [Renvela] 800 mg PO AC tablet 03/18/18 Unknown Rx hydrALAZINE [Apresoline TAB] 100 mg PO TID #90 tab 01/25/19 Unknown Rx Allergies Allergy/AdvReac Type Severity Reaction Status Date / Time No Known Allergies Allergy Verified 03/16/18 17:27 Heart Score - HEART Score History: Moderately suspicious EKG: Non-specific Age: > 65 Risk factors: > 3 risk factors or hx of atherosclerotic disease Troponin: 1-3x normal limit HEART Score: 7 ED Review of Systems ROS: Stated complaint: CHEST PAIN 2 WEEKS Other details as noted in HPI Comment: All other systems reviewed and negative ENT: denies: ear pain Respiratory: denies: cough Cardiovascular: chest pain Endocrine: denies: excessive sweating ED Past Medical Hx - Past Medical History Previous Medical History?: Yes Hx Hypertension: Yes Hx Congestive Heart Failure: No Hx Diabetes: Yes Hx Renal Disease: Yes ([id number]) Hx Asthma: No Hx COPD: No Hx Dementia: Yes Additional medical history: Dementia, PVD, Diabetes - Surgical History Past Surgical History?: Yes Additional Surgical History: right chest permcath - Social History Smoking Status: Unknown if ever smoked Substance Use Type: None - Medications Home Medications: Home Medications Medication Instructions Recorded Confirmed Last Taken Type LORazepam [Ativan] 1 mg PO Q8H PRN tablet 03/18/18 01/23/19 Unknown Rx Sevelamer Carbonate [Renvela] 800 mg PO AC tablet 03/18/18 01/23/19 Unknown Rx cloNIDine [Catapres] 0.1 mg PO Q8HR 01/15/19 01/23/19 Unknown History minoxidiL [Loniten] 2.5 mg PO BID 01/15/19 01/23/19 Unknown History hydrALAZINE [Apresoline TAB] 100 mg PO TID #90 tab 01/25/19 Unknown Rx ED Physical Exam - General Limitations: No Limitations General appearance: alert, in no apparent distress - Head Head exam: Present: atraumatic, normocephalic - Eye Eye exam: Present: normal appearance - ENT ENT exam: Present: mucous membranes moist - Neck Neck exam: Present: normal inspection - Respiratory Respiratory exam: Present: normal lung sounds bilaterally. Absent: respiratory distress - Cardiovascular Cardiovascular Exam: Present: regular rate, normal rhythm. Absent: systolic murmur, diastolic murmur, rubs, gallop - GI/Abdominal GI/Abdominal exam: Present: soft, normal bowel sounds - Extremities Exam Extremities exam: Present: normal inspection - Back Exam Back exam: Present: normal inspection - Neurological Exam Neurological exam: Present: alert, oriented X3 - Psychiatric Psychiatric exam: Present: normal affect, normal mood - Skin Skin exam: Present: warm, dry, intact, normal color. Absent: rash ED Course Vital Signs 08/05/20 18:24 Temperature 98.0 F Pulse Rate 74 Respiratory 14 Rate Blood Pressure 140/85 O2 Sat by Pulse 95 Oximetry JOHN score - John Score Age > 65: (0) No Aspirin use within the Past 7 Days: (1) Yes 3 or more CAD Risk Factors: (1) Yes 2 or more Angina events in past 24 hrs: (0) No Known CAD with more than 50% Stenosis: (0) No Elevated Cardiac Markers: (1) Yes ST Deviation Greater than 0.5mm: (0) No JOHN Score: 3 ED Medical Decision Making - Lab Data Result diagrams: 08/05/20 18:34 08/05/20 18:34 - EKG Data -: EKG Interpreted by Me EKG shows normal: sinus rhythm Rate: normal - EKG Data When compared to previous EKG there are: no significant change Interpretation: no acute changes, other - Radiology Data Radiology results: report reviewed, image reviewed interpreted by me: NO INFILTRATES. - Medical Decision Making Patient with multiple risks factors here with chest pain, substernal, will admit for further work up. - Differential Diagnosis acs,pleurisy, chest wall pain Critical care attestation.: If time is entered above; I have spent that time in minutes in the direct care of this critically ill patient, excluding procedure time. ED Disposition Clinical Impression: Chest pain Qualifiers: Chest pain type: other chest pain Qualified Code(s): R07.89 - Other chest pain; R07.8 - Other chest pain Disposition: -09 OP ADMIT IP TO THIS HOSP Is pt being admited?: Yes Does the pt Need Aspirin: Yes Condition: Stable Instructions: Chest Pain (ED) Referrals: PRIMARY CARE, [Primary Care Provider] - 3-5 Days
[2020-08-06] MEDS ORDERED: ASPIRIN 81 MG TAB CHEW PO ONE (04:10)
[2020-08-06] MEDS ORDERED: MORPHINE 2 MG/1 ML INJ IV PRN (05:35)
[2020-08-06] MEDS ORDERED: ONDANSETRON 4 MG/2 ML INJ IV PRN (05:35)
--- NOTE | 2020-08-06 06:22 | History and Physical Report ---
History of Present Illness Date of examination: 08/06/20 Date of admission: 08/06/20 04:10 Chief complaint: Chief complaint is chest pain History of present illness: History of presenting illness, patient is a 64-year-old female who has been having intermittent pressure-like chest pain located in the retrosternal and precordial area going on for about 1 week. Pain does not radiate, and is not associated with shortness of breath nausea or vomiting, there is also no history of diaphoresis fever chills or cough. Past History Past Medical History: diabetes, hypertension, other (DEMENTIA AND PVD) Past Surgical History: Other (PERMACATH) Social history: no significant social history Family history: no significant family history Medications and Allergies Allergies Allergy/AdvReac Type Severity Reaction Status Date / Time No Known Allergies Allergy Verified 03/16/18 17:27 Home Medications Medication Instructions Recorded Confirmed Last Taken Type LORazepam [Ativan] 1 mg PO Q8H PRN tablet 03/18/18 01/23/19 Unknown Rx Sevelamer Carbonate [Renvela] 800 mg PO AC tablet 03/18/18 01/23/19 Unknown Rx cloNIDine [Catapres] 0.1 mg PO Q8HR 01/15/19 01/23/19 Unknown History minoxidiL [Loniten] 2.5 mg PO BID 01/15/19 01/23/19 Unknown History hydrALAZINE [Apresoline TAB] 100 mg PO TID #90 tab 01/25/19 Unknown Rx Active Meds: Active Medications Aspirin (Aspirin) 325 mg PO QDAY [facility] Heparin Sodium (Porcine) (Heparin) 5,000 unit SUB-Q Q12HR [facility] Morphine Sulfate (Morphine) 2 mg IV Q4H PRN PRN Reason: Pain, Moderate (4-6) Nitroglycerin (Nitro-Bid 2%) 0.5 inch TP QIDNTG [facility]; Protocol Ondansetron HCl (Zofran) 4 mg IV Q8H PRN PRN Reason: Nausea And Vomiting Review of Systems Constitutional: no fever, no chills, no sweats, no night sweats, no weakness Eyes: bilateral: other (NO BILATERAL EYE SYMPTOMS) Ears, nose, mouth and throat: no ear pain, no ear discharge Breasts: deferred Cardiovascular: chest pain, no orthopnea, no palpitations, no rapid/irregular heart beat, no syncope, no lightheadedness, no shortness of breath Respiratory: no cough, no cough with sputum, no shortness of breath, no congestion Gastrointestinal: no nausea, no vomiting, no diarrhea, no constipation, no change in bowel habits, no hematemesis Genitourinary Female: no Menstruation: postmenopausal Musculoskeletal: no neck stiffness, no neck pain, no arm numbness/tingling, no low back pain, no shooting leg pain, no muscle weakness Integumentary: no rash, no pruritis, no redness, no sores, no wounds, no jaundice Neurological: no paralysis, no weakness, no parathesias, no numbness, no tingling, no seizures, no syncope, no tremors, no vertigo, no headaches, no migraines, no convulsions, no aphasia, no change in speech, no confusion Psychiatric: no anxiety Endocrine: no polydipsia, no polyuria, no nocturia Hematologic/Lymphatic: no easy bruising, no easy bleeding Exam - Constitutional Vitals: Temp Pulse Resp BP Pulse Ox 98.0 F 75 21 166/96 95 08/05/20 18:24 08/06/20 05:00 08/06/20 05:00 08/06/20 05:00 08/06/20 05:00 General appearance: Present: no acute distress - EENT Eyes: Present: PERRL, EOM intact - Neck Neck: Present: supple, normal ROM - Respiratory Respiratory effort: normal - Cardiovascular Rhythm: regular Heart Sounds: Present: S1 & S2. Absent: gallop, systolic murmur, diastolic murmur, click - Extremities Extremities: no ischemia, No edema Peripheral Pulses: within normal limits - Abdominal General gastrointestinal: Present: soft, non-tender, non-distended. Absent: tender, distended, rigid, hepatomegaly, splenomegaly, hernia Female genitourinary: Present: deferred - Rectal Rectal Exam: deferred - Integumentary Integumentary: Present: clear, warm, dry. Absent: jaundice, rash, clammy - Musculoskeletal Musculoskeletal: strength equal bilaterally - Psychiatric Psychiatric: appropriate mood/affect - Neurologic Neurologic: CNII-XII intact HEART Score - HEART Score EKG: Non-specific Age: > 65 Risk factors: > 3 risk factors or hx of atherosclerotic disease Troponin: Troponin T 0.114 ng/mL (0.00-0.029) H* 08/05/20 22:05 Troponin: 1-3x normal limit - Critical Actions Critical Actions: 4-6 pts:12-16.6% risk of adverse cardiac event. Should be admitted (PATIENT IS GOING TO HAVE CARDIOLOGY CONSULT) Results - Labs CBC & Chem 7: 08/05/20 18:34 08/05/20 18:34 Labs: Laboratory Last Values WBC 4.3 K/mm3 (4.5-11.0) L 08/05/20 18:34 RBC 3.31 M/mm3 (3.65-5.03) L 08/05/20 18:34 Hgb 10.1 gm/dl (10.1-14.3) 08/05/20 18:34 Hct 30.9 % (30.3-42.9) 08/05/20 18:34 MCV 93 fl (79-97) 08/05/20 18:34 MCH 31 pg (28-32) 08/05/20 18:34 MCHC 33 % (30-34) 08/05/20 18:34 RDW 16.6 % (13.2-15.2) H 08/05/20 18:34 Plt Count 243 K/mm3 (140-440) 08/05/20 18:34 Add Manual Diff Complete 08/05/20 18:34 Total Counted 100 08/05/20 18:34 Seg Neuts % (Manual) 63.0 % (40.0-70.0) 08/05/20 18:34 Band Neutrophils % 0 % 08/05/20 18:34 Lymphocytes % (Manual) 20.0 % (13.4-35.0) 08/05/20 18:34 Reactive Lymphs % (Man) 0 % 08/05/20 18:34 Monocytes % (Manual) 10.0 % (0.0-7.3) H 08/05/20 18:34 Eosinophils % (Manual) 5.0 % (0.0-4.3) H 08/05/20 18:34 Basophils % (Manual) 2.0 % (0.0-1.8) H 08/05/20 18:34 Metamyelocytes % 0 % 08/05/20 18:34 Myelocytes % 0 % 08/05/20 18:34 Promyelocytes % 0 % 08/05/20 18:34 Blast Cells % 0 % 08/05/20 18:34 Nucleated RBC % Not Reportable 08/05/20 18:34 Seg Neutrophils # Man 2.7 K/mm3 (1.8-7.7) 08/05/20 18:34 Band Neutrophils # 0.0 K/mm3 08/05/20 18:34 Lymphocytes # (Manual) 0.9 K/mm3 (1.2-5.4) L 08/05/20 18:34 Abs React Lymphs (Man) 0.0 K/mm3 08/05/20 18:34 Monocytes # (Manual) 0.4 K/mm3 (0.0-0.8) 08/05/20 18:34 Eosinophils # (Manual) 0.2 K/mm3 (0.0-0.4) 08/05/20 18:34 Basophils # (Manual) 0.1 K/mm3 (0.0-0.1) 08/05/20 18:34 Metamyelocytes # 0.0 K/mm3 08/05/20 18:34 Myelocytes # 0.0 K/mm3 08/05/20 18:34 Promyelocytes # 0.0 K/mm3 08/05/20 18:34 Blast Cells # 0.0 K/mm3 08/05/20 18:34 WBC Morphology Not Reportable 08/05/20 18:34 Hypersegmented Neuts Not Reportable 08/05/20 18:34 Hyposegmented Neuts Not Reportable 08/05/20 18:34 Hypogranular Neuts Not Reportable 08/05/20 18:34 Smudge Cells Not Reportable 08/05/20 18:34 Toxic Granulation Not Reportable 08/05/20 18:34 Toxic Vacuolation Not Reportable 08/05/20 18:34 Dohle Bodies Not Reportable 08/05/20 18:34 Pelger-Huet Anomaly Not Reportable 08/05/20 18:34 Adamaris Rods Not Reportable 08/05/20 18:34 Platelet Estimate Not Reportable 08/05/20 18:34 Clumped Platelets Not Reportable 08/05/20 18:34 Plt Clumps, EDTA Not Reportable 08/05/20 18:34 Large Platelets Not Reportable 08/05/20 18:34 Giant Platelets Not Reportable 08/05/20 18:34 Platelet Satelliting Not Reportable 08/05/20 18:34 Plt Morphology Comment Not Reportable 08/05/20 18:34 RBC Morphology Normal 08/05/20 18:34 Dimorphic RBCs Not Reportable 08/05/20 18:34 Polychromasia Not Reportable 08/05/20 18:34 Hypochromasia Not Reportable 08/05/20 18:34 Poikilocytosis Not Reportable 08/05/20 18:34 Anisocytosis Not Reportable 08/05/20 18:34 Microcytosis Not Reportable 08/05/20 18:34 Macrocytosis Not Reportable 08/05/20 18:34 Spherocytes Not Reportable 08/05/20 18:34 Pappenheimer Bodies Not Reportable 08/05/20 18:34 Sickle Cells Not Reportable 08/05/20 18:34 Target Cells Not Reportable 08/05/20 18:34 Tear Drop Cells Not Reportable 08/05/20 18:34 Ovalocytes Not Reportable 08/05/20 18:34 Helmet Cells Not Reportable 08/05/20 18:34 Pradhan-Bowler Bodies Not Reportable 08/05/20 18:34 [place] Rings Not Reportable 08/05/20 18:34 Trezevant Cells Not Reportable 08/05/20 18:34 Bite Cells Not Reportable 08/05/20 18:34 Crenated Cell Not Reportable 08/05/20 18:34 Elliptocytes Not Reportable 08/05/20 18:34 Acanthocytes (Spur) Not Reportable 08/05/20 18:34 Rouleaux Not Reportable 08/05/20 18:34 Hemoglobin C Crystals Not Reportable 08/05/20 18:34 Schistocytes Not Reportable 08/05/20 18:34 Malaria parasites Not Reportable 08/05/20 18:34 Vini Bodies Not Reportable 08/05/20 18:34 Hem Pathologist Commnt No 08/05/20 18:34 Sodium 136 mmol/L (137-145) L 08/05/20 18:34 Potassium 4.8 mmol/L (3.6-5.0) 08/05/20 18:34 Chloride 99.3 mmol/L (98-107) 08/05/20 18:34 Carbon Dioxide 21 mmol/L (22-30) L 08/05/20 18:34 Anion Gap 21 mmol/L 08/05/20 18:34 BUN 54 mg/dL (7-17) H 08/05/20 18:34 Creatinine 13.3 mg/dL (0.6-1.2) H 08/05/20 18:34 Estimated GFR 3 ml/min 08/05/20 18:34 BUN/Creatinine Ratio 4 % 08/05/20 18:34 Glucose 104 mg/dL (65-100) H 08/05/20 18:34 Calcium 9.1 mg/dL (8.4-10.2) 08/05/20 18:34 Total Bilirubin 0.50 mg/dL (0.1-1.2) 08/05/20 18:34 AST 17 units/L (5-40) 08/05/20 18:34 ALT < 5 units/L (7-56) L 08/05/20 18:34 Alkaline Phosphatase 72 units/L (35-129) 08/05/20 18:34 Troponin T 0.114 ng/mL (0.00-0.029) H* 08/05/20 22:05 Total Protein 8.3 g/dL (6.3-8.2) H 08/05/20 18:34 Albumin 3.7 g/dL (3.9-5) L 08/05/20 18:34 Albumin/Globulin Ratio 0.8 % 08/05/20 18:34 Triglycerides 132 mg/dL (2-149) 08/05/20 18:34 Cholesterol 138 mg/dL (50-199) 08/05/20 18:34 LDL Cholesterol Direct 63 mg/dL (50-130) 08/05/20 18:34 HDL Cholesterol 51 mg/dL (40-59) 08/05/20 18:34 Cholesterol/HDL Ratio 2.70 % 08/05/20 18:34 Assessment and Plan - Patient Problems (1) Chest pain Current Visit: Yes Status: Acute Qualifiers: Chest pain type: other chest pain Qualified Code(s): R07.89 - Other chest pain; R07.8 - Other chest pain Plan to address problem: 1. TELEMETRY MORNITORING 2, SERIAL CARDIAC ENZYMES 3. NITROPASTE 4. ASPIRIN PO 5. TYLENOL PO FOR HEADACHE 6. CARDIOLOGY CONSULT 7. I.V MORPHINE FOR PAIN 8. I.V ZOFRAN FOR NAUSEA AND VOMITING. (2) ESRD (end stage renal disease) Current Visit: No Status: Acute Plan to address problem: 1. NEPHROLOGY CONSULT
[2020-08-06] MEDS ORDERED: NITROGLYCERIN 2% OINT 1 GM TP ONE (07:26)
[2020-08-06] MEDS ORDERED: ASPIRIN 81 MG TAB CHEW ONE (07:26)
[2020-08-06] MEDS: NITROGLYCERIN 2% OINT 1 GM TP SCH ×4 (07:31→18:38)
[2020-08-06] MEDS: ASPIRIN 325 MG TAB PO SCH (09:39)
[2020-08-06] MEDS: HEPARIN 5,000 UNIT/1 ML VIAL SUB-Q SCH ×2 (09:39→22:19)
--- NOTE | 2020-08-06 09:46 | Consultation ---
History of Present Illness - Reason for Consult Consult date: 08/06/20 end stage renal disease Requesting physician: AYAD UREÑA - History of Present Illness History of presenting illness, patient is a 64-year-old female who has been having intermittent pressure-like chest pain located in the retrosternal and precordial area going on for about 1 week. Pain does not radiate, and is not associated with shortness of breath nausea or vomiting, there is also no history of diaphoresis fever chills or cough. Last dialysis was 07/31/2020 Past History Past Medical History: diabetes, hypertension, other (DEMENTIA AND PVD) Past Surgical History: Other (PERMACATH) Social history: no significant social history Family history: no significant family history Review of Systems Constitutional: no fever, no chills, no sweats, no night sweats, no weakness Eyes: bilateral: other (NO BILATERAL EYE SYMPTOMS) Ears, nose, mouth and throat: no ear pain, no ear discharge Breasts: deferred Cardiovascular: chest pain, no orthopnea, no palpitations, no rapid/irregular heart beat, no syncope, no lightheadedness, no shortness of breath Respiratory: no cough, no cough with sputum, no shortness of breath, no congestion Gastrointestinal: no nausea, no vomiting, no diarrhea, no constipation, no change in bowel habits, no hematemesis Genitourinary Female: no Menstruation: postmenopausal Musculoskeletal: no neck stiffness, no neck pain, no arm numbness/tingling, no low back pain, no shooting leg pain, no muscle weakness Integumentary: no rash, no pruritis, no redness, no sores, no wounds, no jaundice Neurological: no paralysis, no weakness, no parathesias, no numbness, no tingling, no seizures, no syncope, no tremors, no vertigo, no headaches, no migraines, no convulsions, no aphasia, no change in speech, no confusion Psychiatric: no anxiety Endocrine: no polydipsia, no polyuria, no nocturia Hematologic/Lymphatic: no easy bruising, no easy bleeding Past History Past Medical History: diabetes, hypertension, other (DEMENTIA AND PVD) Past Surgical History: Other (PERMACATH) Social history: no significant social history Family history: no significant family history Medications and Allergies Allergies Allergy/AdvReac Type Severity Reaction Status Date / Time No Known Allergies Allergy Verified 03/16/18 17:27 Home Medications Medication Instructions Recorded Confirmed Last Taken Type LORazepam [Ativan] 1 mg PO Q8H PRN tablet 03/18/18 01/23/19 Unknown Rx Sevelamer Carbonate [Renvela] 800 mg PO AC tablet 03/18/18 01/23/19 Unknown Rx cloNIDine [Catapres] 0.1 mg PO Q8HR 01/15/19 01/23/19 Unknown History minoxidiL [Loniten] 2.5 mg PO BID 01/15/19 01/23/19 Unknown History hydrALAZINE [Apresoline TAB] 100 mg PO TID #90 tab 01/25/19 Unknown Rx Active Meds: Active Medications Aspirin (Aspirin) 325 mg PO QDAY [facility] Last Admin: 08/06/20 09:39 Dose: 325 mg Documented by: Heparin Sodium (Porcine) (Heparin) 5,000 unit SUB-Q Q12HR [facility] Last Admin: 08/06/20 09:39 Dose: 5,000 unit Documented by: Morphine Sulfate (Morphine) 2 mg IV Q4H PRN PRN Reason: Pain, Moderate (4-6) Last Admin: 08/06/20 09:39 Dose: 2 mg Documented by: Nitroglycerin (Nitro-Bid 2%) 0.5 inch TP QIDNTG [facility]; Protocol Last Admin: 08/06/20 09:39 Dose: 0.5 inch Documented by: Ondansetron HCl (Zofran) 4 mg IV Q8H PRN PRN Reason: Nausea And Vomiting Exam - Vital Signs Vital signs: Vital Signs Temp Pulse Resp BP Pulse Ox 98.0 F 74 14 140/85 95 08/05/20 18:24 08/05/20 18:24 08/05/20 18:24 08/05/20 18:24 08/05/20 18:24 Results - Lab Results 08/05/20 18:34 08/05/20 18:34 Most recent lab results Calcium 9.1 mg/dL (8.4-10.2) 08/05/20 18:34 Assessment and Plan Impression * End-stage renal disease on maintenance hemodialysis * Shortness of breath secondary to pulmonary edema * chest pain * Hyperkalemia * Hypertension * Noncompliance * Diabetes Recommendations * Patient is scheduled for hemodialysis for today * Remove fluid as tolerated with dialysis * last hd was 07/31/2020, symptoms likely due to noncompliance with HD * Continue dialysis on TTS schedule as outpatient * Avoid nephrotoxins * Adjust diet and meds for ESRD state * Binders with meals * Procrit with dialysis * No objection to discharge from renal standpoint after dialysis
[2020-08-06] MEDS ORDERED: SODIUM CHLORIDE 0.9% 100 ML IV PRN (10:00)
[2020-08-06] MEDS ORDERED: EPOETIN ALFA 10,000 UNIT/1 ML INJ IV PRN (10:00)
--- NOTE | 2020-08-06 10:14 | Event Note ---
Date: 08/06/20 Patient was admitted early this morning with chest pain, work-up consistent with positive troponins, probably nonspecific,Secondary to underlying ESRD, however patient has risk factors, cardiology consulted cardiology consulted, nephrology evaluation noted and appreciated HD per schedule. Follow cardiology and nephrology evaluation and recommen dations, possible discharge in 1 to 2 days if stable
[2020-08-06] MEDS: MINOXIDIL 2.5 MG TAB PO SCH ×2 (10:37→22:18)
[2020-08-06] MEDS ORDERED: LORazepam 1 MG TAB PO PRN (11:00)
--- NOTE | 2020-08-06 11:08 | Consultation ---
History of Present Illness Consult date: 08/06/20 Requesting physician: JOSE CARLOS HOLDEN Consult reason: chest pain, elevated troponin History of present illness: The pt is a 64-year-old female with a past medical history of ESRD on HD, HTN, HLP, DM. She is previously unknown to our practice. She presented with c/o chest pain for approx 1 week prior to arrival. She describes her chest pain as a substernal intermittent aching pain. She also c/o left-sided rib pain which is reproducible with palpation of the left ribs. The pain is sometimes associated with SOB. She denies any palpitations, n/v, diaphoresis, dizziness or syncope. She reports compliance with her home medication regimen and dialysis schedule. tte done 01/2019 showed EF 55-60%, mild to mod LVH, LA mod to severely dilated, mild to mod MR, mild TR, negative bubble study. Past History Past Medical History: diabetes, dialysis, ESRD, hypertension, other (DEMENTIA AND PVD) Past Surgical History: Other (PERMACATH) Social history: no significant social history Family history: no significant family history Medications and Allergies Allergies Allergy/AdvReac Type Severity Reaction Status Date / Time No Known Allergies Allergy Verified 03/16/18 17:27 Home Medications Medication Instructions Recorded Confirmed Last Taken Type LORazepam [Ativan] 1 mg PO Q8H PRN tablet 03/18/18 01/23/19 Unknown Rx Sevelamer Carbonate [Renvela] 800 mg PO AC tablet 03/18/18 01/23/19 Unknown Rx cloNIDine [Catapres] 0.1 mg PO Q8HR 01/15/19 01/23/19 Unknown History minoxidiL [Loniten] 2.5 mg PO BID 01/15/19 01/23/19 Unknown History hydrALAZINE [Apresoline TAB] 100 mg PO TID #90 tab 01/25/19 Unknown Rx Active Meds: Active Medications Aspirin (Aspirin) 325 mg PO QDAY [facility] Last Admin: 08/06/20 09:39 Dose: 325 mg Documented by: Clonidine HCl (Catapres) 0.1 mg PO Q8HR [facility] Epoetin Michelet (Procrit) 10,000 unit IV JULIEN PRN PRN Reason: hemodialysis Heparin Sodium (Porcine) (Heparin) 5,000 unit SUB-Q Q12HR [facility] Last Admin: 08/06/20 09:39 Dose: 5,000 unit Documented by: Hydralazine HCl (Apresoline) 100 mg PO TID [facility] Sodium Chloride (Nacl 0.9%) 100 mls @ 999 mls/hr IV JULIEN PRN PRN Reason: Hypotension Labetalol HCl (Labetalol) 10 mg IV Q4H PRN PRN Reason: Hypertension Last Admin: 08/06/20 10:36 Dose: 10 mg Documented by: Lorazepam (Ativan) 1 mg PO Q8H PRN PRN Reason: Agitation Minoxidil (Loniten) 2.5 mg PO BID [facility] Last Admin: 08/06/20 10:37 Dose: 2.5 mg Documented by: Morphine Sulfate (Morphine) 2 mg IV Q4H PRN PRN Reason: Pain, Moderate (4-6) Last Admin: 08/06/20 09:39 Dose: 2 mg Documented by: Nitroglycerin (Nitro-Bid 2%) 0.5 inch TP QIDNTG [facility]; Protocol Last Admin: 08/06/20 09:39 Dose: 0.5 inch Documented by: Ondansetron HCl (Zofran) 4 mg IV Q8H PRN PRN Reason: Nausea And Vomiting Sevelamer Carbonate (Renvela) 800 mg PO AC [facility] Review of Systems Constitutional: no weight loss, no weight gain, no fever, no chills, no sweats Ears, nose, mouth and throat: no ear pain, no nose pain, no sinus pressure, no sinus pain Cardiovascular: chest pain, shortness of breath, high blood pressure, no orthopnea, no palpitations, no rapid/irregular heart beat, no edema, no syncope, no lightheadedness Respiratory: shortness of breath, no cough, no congestion, no wheezing, no pain on inspiration Genitourinary Female: no pelvic pain, no flank pain, no dysuria, no urinary frequency, no urgency Musculoskeletal: no neck stiffness, no neck pain, no shooting arm pain, no arm numbness/tingling, no low back pain, no shooting leg pain Integumentary: no rash, no pruritis, no redness, no sores, no wounds Neurological: no head injury, no paralysis, no weakness, no parathesias, no numbness, no tingling, no seizures, no syncope Psychiatric: no anxiety Endocrine: no cold intolerance, no heat intolerance Hematologic/Lymphatic: no easy bruising, no easy bleeding Allergic/Immunologic: no urticaria Physical Examination Vital Signs Temp Pulse Resp BP Pulse Ox 98.0 F 74 14 140/85 95 08/05/20 18:24 08/05/20 18:24 08/05/20 18:24 08/05/20 18:24 08/05/20 18:24 General appearance: no acute distress HEENT: Positive: PERRL, Normocephaly, Mucus Membranes Moist Neck: Positive: neck supple, trachea midline Cardiac: Positive: Reg Rate and Rhythm, S1/S2 Lungs: Positive: Decreased Breath Sounds Neuro: Positive: Grossly Intact Abdomen: Negative: Tender Skin: Negative: Rash Musculoskeletal: No Pain Extremities: Absent: edema Results 08/05/20 18:34 08/05/20 18:34 Cardiac Enzymes 08/05/20 Range/Units 18:34 AST 17 (5-40) units/L Lipids 08/05/20 Range/Units 18:34 Triglycerides 132 (2-149) mg/dL Cholesterol 138 (50-199) mg/dL HDL Cholesterol 51 (40-59) mg/dL Cholesterol/HDL Ratio 2.70 % CBC 08/05/20 Range/Units 18:34 WBC 4.3 L (4.5-11.0) K/mm3 RBC 3.31 L (3.65-5.03) M/mm3 Hgb 10.1 (10.1-14.3) gm/dl Hct 30.9 (30.3-42.9) % Plt Count 243 (140-440) K/mm3 Comprehensive Metabolic Panel 08/05/20 Range/Units 18:34 Sodium 136 L (137-145) mmol/L Potassium 4.8 (3.6-5.0) mmol/L Chloride 99.3 (98-107) mmol/L Carbon Dioxide 21 L (22-30) mmol/L BUN 54 H (7-17) mg/dL Creatinine 13.3 H (0.6-1.2) mg/dL Glucose 104 H (65-100) mg/dL Calcium 9.1 (8.4-10.2) mg/dL AST 17 (5-40) units/L ALT < 5 L (7-56) units/L Alkaline Phosphatase 72 (35-129) units/L Total Protein 8.3 H (6.3-8.2) g/dL Albumin 3.7 L (3.9-5) g/dL - Imaging and Cardiology Echo: pending, report reviewed (01/2019 showed EF 55-60%, mild to mod LVH, LA mod to severely dilated, mild to mod MR, mild TR, negative bubble study.) EKG: report reviewed, image reviewed EKG interpretations - Telemetry EKG Rhythm: Sinus Rhythm - EKG Sinus rhythms and dysrhythmias: sinus rhythm Chamber hypertrophy or enlargement: left ventricular hypertro Assessment and Plan Chest pain appears somewhat atypical. CE elevation appears c/w NSTEMI type II. Cont to trend Juliann and f/u ECG in AM. Optimize anti-hypertensive regimen. F/u echo. Plan for lexiscan MPI stress test in AM. NPO after MN. Will follow. The patient has been seen in conjunction with Dr. Choi who agrees with the assessment and plan of care. - Patient Problems (1) Chest pain Current Visit: Yes Status: Acute Qualifiers: Chest pain type: other chest pain Qualified Code(s): R07.89 - Other chest pain; R07.8 - Other chest pain (2) Accelerated hypertension Current Visit: Yes Status: Acute (3) NSTEMI (non-ST elevated myocardial infarction) Current Visit: Yes Status: Acute Plan to address problem: suspect type II (4) ESRD on dialysis Current Visit: Yes Status: Chronic (5) Volume overload Current Visit: Yes Status: Acute (6) Diabetes Current Visit: Yes Status: Acute
[2020-08-06] MEDS: SEVELAMER CARBONATE 800 MG TAB PO SCH ×2 (15:19→16:22)
[2020-08-06] MEDS: hydrALAZINE 100 MG TAB PO SCH ×3 (15:20→22:18)
[2020-08-06] MEDS: cloNIDine 0.1 MG TAB PO SCH ×3 (15:20→22:19)
[2020-08-06] MEDS: METOPROLOL TARTRATE 50 MG TAB PO SCH ×3 (15:20→22:18)
[2020-08-06 16:00] LABS: Hepatitis B Surface Antigen Non-Reactive (Negative); Hepatitis C Virus Antibody Reactive (NonReactive)
[2020-08-07] MEDS ORDERED: REGADENOSON 0.4 MG/5 ML INJ IV ONE (06:53)
[2020-08-07] MEDS: cloNIDine 0.1 MG TAB PO SCH ×3 (07:06→23:23)
[2020-08-07] MEDS: NITROGLYCERIN 2% OINT 1 GM TP SCH ×2 (07:07→20:34)
--- NOTE | 2020-08-07 09:27 | Progress Note ---
Assessment and Plan Impression * End-stage renal disease on maintenance hemodialysis * Shortness of breath secondary to pulmonary edema * chest pain * Hyperkalemia * Hypertension * Noncompliance * Diabetes Recommendations * Remove fluid as tolerated with dialysis * last hd was 07/31/2020, symptoms likely due to noncompliance with HD * Continue dialysis on TTS schedule as outpatient * Avoid nephrotoxins * Adjust diet and meds for ESRD state * Binders with meals * Procrit with dialysis * No objection to discharge from renal standpoint after dialysis Subjective Date of service: 08/07/20 Principal diagnosis: esrd Interval history: resting in bed Objective - Exam Narrative Exam: General appearance: Present: no acute distress - EENT Eyes: Present: PERRL, EOM intact - Neck Neck: Present: supple, normal ROM - Respiratory Respiratory effort: normal - Cardiovascular Rhythm: regular Heart Sounds: Present: S1 & S2. Absent: gallop, systolic murmur, diastolic murmur, click - Extremities Extremities: no ischemia, No edema Peripheral Pulses: within normal limits - Abdominal General gastrointestinal: Present: soft, non-tender, non-distended. Absent: tender, distended, rigid, hepatomegaly, splenomegaly, hernia Female genitourinary: Present: deferred - Rectal Rectal Exam: deferred - Integumentary Integumentary: Present: clear, warm, dry. Absent: jaundice, rash, clammy - Musculoskeletal Musculoskeletal: strength equal bilaterally - Psychiatric Psychiatric: appropriate mood/affect - Neurologic Neurologic: CNII-XII intact - Vital Signs Vital signs: Vital Signs - 12hr 08/06/20 08/06/20 08/06/20 22:18 22:19 23:15 Temperature 98.5 F Pulse Rate 70 70 73 Respiratory 18 Rate Blood Pressure 157/77 157/77 152/68 O2 Sat by Pulse 94 Oximetry 08/07/20 03:23 Temperature 97.9 F Pulse Rate 66 Respiratory 16 Rate Blood Pressure 150/72 O2 Sat by Pulse 91 Oximetry - Lab 08/05/20 18:34 08/05/20 18:34 Most recent lab results Calcium 9.1 mg/dL (8.4-10.2) 08/05/20 18:34 Medications & Allergies - Medications Allergies/Adverse Reactions: Allergies No Known Allergies Allergy (Verified 03/16/18 17:27) Home Medications: Home Medications Medication Instructions Recorded Confirmed Last Taken Type LORazepam [Ativan] 1 mg PO Q8H PRN tablet 03/18/18 01/23/19 Unknown Rx Sevelamer Carbonate [Renvela] 800 mg PO AC tablet 03/18/18 01/23/19 Unknown Rx cloNIDine [Catapres] 0.1 mg PO Q8HR 01/15/19 01/23/19 Unknown History minoxidiL [Loniten] 2.5 mg PO BID 01/15/19 01/23/19 Unknown History hydrALAZINE [Apresoline TAB] 100 mg PO TID #90 tab 01/25/19 Unknown Rx Active Medications: Generic Name Dose Route Start Last Admin Trade Name Freq PRN Reason Stop Dose Admin Aspirin 325 mg 08/06/20 10:00 08/06/20 09:39 Aspirin PO 325 mg QDAY TONY Administration Atorvastatin Calcium 20 mg 08/06/20 22:00 08/06/20 22:18 Lipitor PO 20 mg QHS TONY Administration Clonidine HCl 0.1 mg 08/06/20 14:00 08/07/20 07:06 Catapres PO Not Given Q8HR [facility]ONY Epoetin Michelet 10,000 unit 08/06/20 10:00 08/06/20 18:30 Procrit IV 10,000 unit JULIEN PRN Administration hemodialysis Heparin Sodium (Porcine) 5,000 unit 08/06/20 10:00 08/06/20 22:19 Heparin SUB-Q 5,000 unit Q12HR TONY Administration Hydralazine HCl 100 mg 08/06/20 14:00 08/06/20 22:18 Apresoline PO Not Given TID [facility] Sodium Chloride 100 mls @ 999 mls/hr 08/06/20 10:00 Nacl 0.9% IV JULIEN PRN Hypotension Labetalol HCl 10 mg 08/06/20 10:00 08/06/20 16:11 Labetalol IV 10 mg Q4H PRN Administration Hypertension Lorazepam 1 mg 08/06/20 11:00 Ativan PO Q8H PRN Agitation Metoprolol Tartrate 50 mg 08/06/20 12:00 08/06/20 22:18 Metoprolol PO 50 mg BID TONY Administration Minoxidil 2.5 mg 08/06/20 10:00 08/06/20 22:18 Loniten PO 2.5 mg BID TONY Administration Morphine Sulfate 2 mg 08/06/20 05:35 08/06/20 09:39 Morphine IV 2 mg Q4H PRN Administration Pain, Moderate (4-6) Nitroglycerin 0.5 inch 08/06/20 06:00 08/07/20 07:07 [facility]Bid 2% TP [facility] Protocol Ondansetron HCl 4 mg 08/06/20 05:35 Zofran IV Q8H PRN Nausea And Vomiting Sevelamer Carbonate 800 mg 08/06/20 11:30 08/06/20 16:22 Renvela PO Not Given [facility]
--- NOTE | 2020-08-07 12:00 | Progress Note ---
Assessment and Plan tte reviewed - EF 55-60%, mild LVH, LA mildly dilated, pulm HTN with RVSP 58mmHg. Chest pain currently resolved. CE elevation appears c/w NSTEMI type II. Pt refused stress test today, states she wishes to be discharged. Currently stable cardiac status. Pt may be discharged from cardiology standpoint. Recommend pt follow up in our office with Dr. Choi within 2 weeks of discharge ([phone]). The patient has been seen in conjunction with Dr. Choi who agrees with the assessment and plan of care. - Patient Problems (1) Chest pain Current Visit: Yes Status: Resolved Qualifiers: Chest pain type: other chest pain Qualified Code(s): R07.89 - Other chest pain; R07.8 - Other chest pain (2) Accelerated hypertension Current Visit: Yes Status: Acute (3) NSTEMI (non-ST elevated myocardial infarction) Current Visit: Yes Status: Acute Plan to address problem: suspect type II (4) ESRD on dialysis Current Visit: Yes Status: Chronic (5) Volume overload Current Visit: Yes Status: Acute (6) Diabetes Current Visit: Yes Status: Acute Subjective Date of service: 08/07/20 Principal diagnosis: esrd Interval history: pt resting in bed, no current complaints, refused stress testing today. in SR on tele. Objective Last Vital Signs Temp 97.9 F 08/07/20 03:23 Pulse 66 08/07/20 03:23 Resp 16 08/07/20 03:23 BP 150/72 08/07/20 03:23 Pulse Ox 91 08/07/20 03:23 - Physical Examination General: No Apparent Distress HEENT: Positive: PERRL, Normocephaly, Mucus Membranes Moist Neck: Positive: neck supple, trachea midline Cardiac: Positive: Reg Rate and Rhythm, S1/S2 Lungs: Positive: Decreased Breath Sounds Neuro: Positive: Grossly Intact Abdomen: Negative: Tender Skin: Negative: Rash Musculoskeletal: No Pain Extremities: Absent: edema - Imaging and Cardiology EKG: report reviewed, image reviewed Echo: report reviewed (01/2019 showed EF 55-60%, mild to mod LVH, LA mod to severely dilated, mild to mod MR, mild TR, negative bubble study.) - Telemetry EKG Rhythm: Sinus Rhythm - EKG Sinus rhythms and dysrhythmias: sinus rhythm Chamber hypertrophy or enlargement: left ventricular hypertro
--- NOTE | 2020-08-07 12:38 | Discharge Summary ---
Providers - Providers Date of Admission: 08/06/20 04:10 Date of discharge: 08/07/20 Attending physician: JORI STEPHENSON 08/06/20 05:32 Consult to Physician [CONS] Routine Comment: Consulting Provider: CAMPOS KATE Physician Instructions: Reason For Exam: chest pain with elevated troponin 08/06/20 05:40 Consult to Physician [CONS] Routine Comment: Consulting Provider: ELO STAHL Physician Instructions: Reason For Exam: ESRD ON DIALYSIS Primary care physician: SENIOR UI [employer]X [employer]ELOPER Hospitalization Condition: Stable Disposition: DC/[place]-03 [facility] Time spent for discharge: 35 min Core Measure Documentation - Palliative Care Palliative Care/ Comfort Measures: Not Applicable - Core Measures Any of the following diagnoses?: none Exam - Constitutional Vitals: Temp Pulse Resp BP Pulse Ox 97.9 F 66 16 150/72 91 08/07/20 03:23 08/07/20 03:23 08/07/20 03:23 08/07/20 03:23 08/07/20 03:23 General appearance: Present: no acute distress, well-nourished - EENT Eyes: Present: PERRL, EOM intact - Neck Neck: Present: supple, normal ROM - Respiratory Respiratory effort: normal Respiratory: bilateral: diminished, negative: rales, rhonchi, wheezing - Cardiovascular Rhythm: regular Heart Sounds: Present: S1 & S2 - Extremities Extremities: no ischemia, No edema - Abdominal General gastrointestinal: Present: soft, non-tender, non-distended, normal bowel sounds - Integumentary Integumentary: Present: clear, warm - Musculoskeletal Musculoskeletal: strength equal bilaterally, generalized weakness - Psychiatric Psychiatric: appropriate mood/affect, cooperative - Neurologic Neurologic: moves all extremities Plan Activity: advance as tolerated, fall precautions Diet: renal Additional Instructions: Advised to follow renal, hemodialysis per schedule TTS. If you have worsening symptoms contact MD or go to emergency room. Fall precautions Follow up with: PRIMARY MD HILLARY [Primary Care Provider] - 3-5 Days TREVOR WARE MD [Staff Physician] - 7 Days CAMPOS KATE MD [Staff Physician] - 14 Days
--- NOTE | 2020-08-07 16:07 | Progress Note ---
Hospitalist Physical - Constitutional Vitals: Temp Pulse Resp BP Pulse Ox 97.9 F 72 16 150/72 91 08/07/20 03:23 08/07/20 13:00 08/07/20 03:23 08/07/20 03:23 08/07/20 03:23 General appearance: Present: no acute distress HEART Score - HEART Score EKG: Non-specific Age: > 65 Risk factors: > 3 risk factors or hx of atherosclerotic disease Troponin: Troponin T 0.105 ng/mL (0.00-0.029) H* 08/06/20 10:38 Troponin: 1-3x normal limit - Critical Actions Critical Actions: 4-6 pts:12-16.6% risk of adverse cardiac event. Should be admitted (PATIENT IS GOING TO HAVE CARDIOLOGY CONSULT) Results - Labs CBC & Chem 7: 08/05/20 18:34 08/05/20 18:34 Labs: Laboratory Last Values WBC 4.3 K/mm3 (4.5-11.0) L 08/05/20 18:34 RBC 3.31 M/mm3 (3.65-5.03) L 08/05/20 18:34 Hgb 10.1 gm/dl (10.1-14.3) 08/05/20 18:34 Hct 30.9 % (30.3-42.9) 08/05/20 18:34 MCV 93 fl (79-97) 08/05/20 18:34 MCH 31 pg (28-32) 08/05/20 18:34 MCHC 33 % (30-34) 08/05/20 18:34 RDW 16.6 % (13.2-15.2) H 08/05/20 18:34 Plt Count 243 K/mm3 (140-440) 08/05/20 18:34 Add Manual Diff Complete 08/05/20 18:34 Total Counted 100 08/05/20 18:34 Seg Neuts % (Manual) 63.0 % (40.0-70.0) 08/05/20 18:34 Band Neutrophils % 0 % 08/05/20 18:34 Lymphocytes % (Manual) 20.0 % (13.4-35.0) 08/05/20 18:34 Reactive Lymphs % (Man) 0 % 08/05/20 18:34 Monocytes % (Manual) 10.0 % (0.0-7.3) H 08/05/20 18:34 Eosinophils % (Manual) 5.0 % (0.0-4.3) H 08/05/20 18:34 Basophils % (Manual) 2.0 % (0.0-1.8) H 08/05/20 18:34 Metamyelocytes % 0 % 08/05/20 18:34 Myelocytes % 0 % 08/05/20 18:34 Promyelocytes % 0 % 08/05/20 18:34 Blast Cells % 0 % 08/05/20 18:34 Nucleated RBC % Not Reportable 08/05/20 18:34 Seg Neutrophils # Man 2.7 K/mm3 (1.8-7.7) 08/05/20 18:34 Band Neutrophils # 0.0 K/mm3 08/05/20 18:34 Lymphocytes # (Manual) 0.9 K/mm3 (1.2-5.4) L 08/05/20 18:34 Abs React Lymphs (Man) 0.0 K/mm3 08/05/20 18:34 Monocytes # (Manual) 0.4 K/mm3 (0.0-0.8) 08/05/20 18:34 Eosinophils # (Manual) 0.2 K/mm3 (0.0-0.4) 08/05/20 18:34 Basophils # (Manual) 0.1 K/mm3 (0.0-0.1) 08/05/20 18:34 Metamyelocytes # 0.0 K/mm3 08/05/20 18:34 Myelocytes # 0.0 K/mm3 08/05/20 18:34 Promyelocytes # 0.0 K/mm3 08/05/20 18:34 Blast Cells # 0.0 K/mm3 08/05/20 18:34 WBC Morphology Not Reportable 08/05/20 18:34 Hypersegmented Neuts Not Reportable 08/05/20 18:34 Hyposegmented Neuts Not Reportable 08/05/20 18:34 Hypogranular Neuts Not Reportable 08/05/20 18:34 Smudge Cells Not Reportable 08/05/20 18:34 Toxic Granulation Not Reportable 08/05/20 18:34 Toxic Vacuolation Not Reportable 08/05/20 18:34 Dohle Bodies Not Reportable 08/05/20 18:34 Pelger-Huet Anomaly Not Reportable 08/05/20 18:34 Adamaris Rods Not Reportable 08/05/20 18:34 Platelet Estimate Not Reportable 08/05/20 18:34 Clumped Platelets Not Reportable 08/05/20 18:34 Plt Clumps, EDTA Not Reportable 08/05/20 18:34 Large Platelets Not Reportable 08/05/20 18:34 Giant Platelets Not Reportable 08/05/20 18:34 Platelet Satelliting Not Reportable 08/05/20 18:34 Plt Morphology Comment Not Reportable 08/05/20 18:34 RBC Morphology Normal 08/05/20 18:34 Dimorphic RBCs Not Reportable 08/05/20 18:34 Polychromasia Not Reportable 08/05/20 18:34 Hypochromasia Not Reportable 08/05/20 18:34 Poikilocytosis Not Reportable 08/05/20 18:34 Anisocytosis Not Reportable 08/05/20 18:34 Microcytosis Not Reportable 08/05/20 18:34 Macrocytosis Not Reportable 08/05/20 18:34 Spherocytes Not Reportable 08/05/20 18:34 Pappenheimer Bodies Not Reportable 08/05/20 18:34 Sickle Cells Not Reportable 08/05/20 18:34 Target Cells Not Reportable 08/05/20 18:34 Tear Drop Cells Not Reportable 08/05/20 18:34 Ovalocytes Not Reportable 08/05/20 18:34 Helmet Cells Not Reportable 08/05/20 18:34 [place] Bodies Not Reportable 08/05/20 18:34 [place] Rings Not Reportable 08/05/20 18:34 Gerda Cells Not Reportable 08/05/20 18:34 Bite Cells Not Reportable 08/05/20 18:34 Crenated Cell Not Reportable 08/05/20 18:34 Elliptocytes Not Reportable 08/05/20 18:34 Acanthocytes (Spur) Not Reportable 08/05/20 18:34 Rouleaux Not Reportable 08/05/20 18:34 Hemoglobin C Crystals Not Reportable 08/05/20 18:34 Schistocytes Not Reportable 08/05/20 18:34 Malaria parasites Not Reportable 08/05/20 18:34 Vini Bodies Not Reportable 08/05/20 18:34 Hem Pathologist Commnt No 08/05/20 18:34 Sodium 136 mmol/L (137-145) L 08/05/20 18:34 Potassium 4.8 mmol/L (3.6-5.0) 08/05/20 18:34 Chloride 99.3 mmol/L (98-107) 08/05/20 18:34 Carbon Dioxide 21 mmol/L (22-30) L 08/05/20 18:34 Anion Gap 21 mmol/L 08/05/20 18:34 BUN 54 mg/dL (7-17) H 08/05/20 18:34 Creatinine 13.3 mg/dL (0.6-1.2) H 08/05/20 18:34 Estimated GFR 3 ml/min 08/05/20 18:34 BUN/Creatinine Ratio 4 % 08/05/20 18:34 Glucose 104 mg/dL (65-100) H 08/05/20 18:34 POC Glucose 117 mg/dL (70-105) H 08/06/20 08:44 Calcium 9.1 mg/dL (8.4-10.2) 08/05/20 18:34 Total Bilirubin 0.50 mg/dL (0.1-1.2) 08/05/20 18:34 AST 17 units/L (5-40) 08/05/20 18:34 ALT < 5 units/L (7-56) L 08/05/20 18:34 Alkaline Phosphatase 72 units/L (35-129) 08/05/20 18:34 Troponin T 0.105 ng/mL (0.00-0.029) H* 08/06/20 10:38 Total Protein 8.3 g/dL (6.3-8.2) H 08/05/20 18:34 Albumin 3.7 g/dL (3.9-5) L 08/05/20 18:34 Albumin/Globulin Ratio 0.8 % 08/05/20 18:34 Triglycerides 132 mg/dL (2-149) 08/05/20 18:34 Cholesterol 138 mg/dL (50-199) 08/05/20 18:34 LDL Cholesterol Direct 63 mg/dL (50-130) 08/05/20 18:34 HDL Cholesterol 51 mg/dL (40-59) 08/05/20 18:34 Cholesterol/HDL Ratio 2.70 % 08/05/20 18:34 Hepatitis A IgM Ab Non-reactive (NonReactive) 08/06/20 15:14 Hep Bs Antigen Non-reactive (Negative) 08/06/20 15:14 Hep B Core IgM Ab Non-reactive (NonReactive) 08/06/20 15:14 Hepatitis C Antibody Reactive (NonReactive) A 08/06/20 15:14 - Diagnostic Impressions Diagnostic Impressions: Echocardiogram 08/06/20 11:18 Transthoracic Echocardiogram Indication: Chest pain BP: 190/106 HR: 74 Conclusions *The left ventricular chamber size is normal. *Mild concentric left ventricular hypertrophy is observed. *The estimated ejection fraction is 55-60%. *The left ventricular diastolic filling pattern is consistent with elevated left ventricular end-diastolic pressure. *The left atrium is mildly dilated. *The right ventricular cavity size is normal. *The right atrial cavity size is normal. *There is mitral annular calcification. *The right ventricular systolic pressure is calculated at 58 mmHg. Findings Left Ventricle: The left ventricular chamber size is normal. Mild concentric left ventricular hypertrophy is observed. Global left ventricular wall motion and contractility are within normal limits. Global left ventricular systolic function is normal. The estimated ejection fraction is 55-60%. The left ventricular diastolic filling pattern is consistent with elevated left ventricular end-diastolic pressure. Left Atrium: The left atrium is mildly dilated. Right Ventricle: The right ventricular cavity size is normal. Right Atrium: The right atrial cavity size is normal. Aortic Valve: The aortic valve is trileaflet. Mild aortic leaflet calcification is visualized. There is mild aortic regurgitation. Mitral Valve: There is mitral annular calcification. The mitral valve leaflets are mildly thickened.Opening normally. The mean gradient across the mitral valve is 6 mmHg. The peak gradient across the mitral valve is 19 mmHg. Tricuspid Valve: The tricuspid valve leaflets are normal. There is trace tricuspid regurgitation. The right ventricular systolic pressure is calculated at 58 mmHg. Pulmonic Valve: The pulmonic valve is not well visualized. Pericardium: There is no pericardial effusion. Aorta: The aorta appears normal. Venous: The inferior vena cava appears normal. Measurements Chambers 2D Name Value Normal Range IVSd (2D) 1.27 cm (0.6 - 1.1) LVPWd (2D) 1.25 cm (0.6 - 1.1) LVIDd (2D) 4.84 cm (3.7 - 5.6) LVIDs (2D) 2.96 cm (2 - 3.8) LV FS (2D) 38.89 % - EF Teichholz (2D) 69.16 % - Ao root diameter (2D) 3.04 cm (2 - 3.7) Volumes/Mass Name Value Normal Range LA ESV SP 4CH (A/L) 84.12 ml - LA ESV SP 2CH (A/L) 83.49 ml - LA ESV BP (A/L) 84.88 ml - LA ESV BP (A/L) index 47.15 ml/m2 - LA ESV SP 4CH (MOD) 81.17 ml - LA ESV SP 2CH (MOD) 82.52 ml - LA ESV BP (MOD) 82.14 ml - LA ESV BP (MOD) index 45.63 ml/m2 - Diastolic/Systolic Function Name Value Normal Range MV E-wave Vmax 1.56 m/sec - MV deceleration time 187.06 msec - MV A-wave Vmax 0.91 m/sec - MV E:A ratio 1.72 ratio - Aortic Valve Name Value Normal Range AV Vmax 1.72 m/sec - AV VTI 38.48 cm - AV peak gradient 11.77 mmHg - AV mean gradient 6.65 mmHg - LVOT diameter 2.03 cm - LVOT Vmax 1.34 m/sec - LVOT VTI 29.81 cm - LVOT peak gradient 7.14 mmHg - LVOT mean gradient 4.25 mmHg - SV LVOT 96.21 ml - HARESH (continuity Vmax) 2.51 cm2 - HARESH (continuity VTI) 2.5 cm2 - AR PHT 458.28 msec - AR peak gradient 79.37 mmHg - Mitral Valve Name Value Normal Range MV Vmax 2.11 m/sec - MV VTI 40.61 cm - MV peak gradient 19 mmHg - MV mean gradient 6 mmHg - MR Vmax 5.14 m/sec - MVA (continuity VTI) 2.37 cm2 - Tricuspid Valve Name Value Normal Range TR Vmax 3.7 m/sec - TR peak gradient 55 mmHg - RAP 3 mmHg - RVSP 58 mmHg - IVC diameter 2.17 cm (1.2 - 2.3) Zavala/IV: Voiding Method Toilet IV Catheter Type [Left Upper INT / Saline Lock arm] Active Medications - Current Medications Current Medications: Generic Name Dose Route Start Last Admin Trade Name Freq PRN Reason Stop Dose Admin Aspirin 81 mg 08/08/20 10:00 Baby Aspirin PO QDAY [facility] Atorvastatin Calcium 20 mg 08/06/20 22:00 08/06/20 22:18 Lipitor PO 20 mg QHS [facility] Administration Clonidine HCl 0.1 mg 08/06/20 14:00 08/07/20 07:06 Catapres PO Not Given Q8HR [facility] Epoetin Michelet 10,000 unit 08/06/20 10:00 08/06/20 18:30 Procrit IV 10,000 unit JULIEN PRN Administration hemodialysis Heparin Sodium (Porcine) 5,000 unit 08/06/20 10:00 08/06/20 22:19 Heparin SUB-Q 5,000 unit Q12HR [facility] Administration Hydralazine HCl 100 mg 08/06/20 14:00 08/06/20 22:18 Apresoline PO Not Given TID [facility] Sodium Chloride 100 mls @ 999 mls/hr 08/06/20 10:00 Nacl 0.9% IV JULIEN PRN Hypotension Labetalol HCl 10 mg 08/06/20 10:00 08/06/20 16:11 Labetalol IV 10 mg Q4H PRN Administration Hypertension Lorazepam 1 mg 08/06/20 11:00 Ativan PO Q8H PRN Agitation Metoprolol Tartrate 50 mg 08/06/20 12:00 08/06/20 22:18 Metoprolol PO 50 mg BID [facility] Administration Minoxidil 2.5 mg 08/06/20 10:00 08/06/20 22:18 Loniten PO 2.5 mg BID [facility] Administration Morphine Sulfate 2 mg 08/06/20 05:35 08/06/20 09:39 Morphine IV 2 mg Q4H PRN Administration Pain, Moderate (4-6) Nitroglycerin 0.5 inch 08/06/20 06:00 08/07/20 07:07 Nitro-Bid 2% TP Not Given QIDNTG [facility] Protocol Ondansetron HCl 4 mg 08/06/20 05:35 Zofran IV Q8H PRN Nausea And Vomiting Sevelamer Carbonate 800 mg 08/06/20 11:30 08/06/20 16:22 Renvela PO Not Given AC TONY
[2020-08-07] MEDS: MINOXIDIL 2.5 MG TAB PO SCH ×2 (20:08→23:24)
[2020-08-07] MEDS: hydrALAZINE 100 MG TAB PO SCH ×2 (20:08→20:33)
[2020-08-07] MEDS: METOPROLOL TARTRATE 50 MG TAB PO SCH ×2 (20:08→23:23)
[2020-08-07] MEDS: SEVELAMER CARBONATE 800 MG TAB PO SCH (20:33)
[2020-08-07] MEDS: HEPARIN 5,000 UNIT/1 ML VIAL SUB-Q SCH ×2 (20:33→23:07)
[2020-08-07] MEDS: ASPIRIN 325 MG TAB PO SCH (20:35)
[2020-08-07 23:53] VITALS: BP 147/71
[2020-08-08] MEDS ORDERED: ASPIRIN 81 MG TAB CHEW PO SCH (10:00)
== END 2020-08-08 02:16 ==
LOC: ED 18:22 → 4A 08-06 04:10
PROVIDERS: ADMIT Internal Medicine; ATTEND Internal Medicine
DX: R07.89 Other chest pain (principal); I12.0 Hypertensive chronic kidney disease with stage 5 chronic kidney disease or end stage renal disease; N18.6 End stage renal disease; I21.4 Non-ST elevation (NSTEMI) myocardial infarction; E11.22 Type 2 diabetes mellitus with diabetic chronic kidney disease; I73.9 Peripheral vascular disease, unspecified; F02.80 Dementia in other diseases classified elsewhere, unspecified severity, without behavioral disturbance, psychotic disturbance, mood disturbance, and anxiety; E87.70 Fluid overload, unspecified; E87.5 Hyperkalemia; Z98.890 Other specified postprocedural states; Z79.82 Long term (current) use of aspirin; Z91.14 Patient's other noncompliance with medication regimen; Z79.899 Other long term (current) drug therapy
CPT/HCPCS: 36415; 71045; 80053; 80061; 80074; 82962; 84484; 85025; 93005; 93306; 96372; 96374; 96375; 99285; A9270; G0378; J0885; J1644; J2270; 85007

== ENCOUNTER 2020-08-26 12:28 | Inpatient (IN) | payer MEDICARE ==
--- NOTE | 2020-08-26 14:43 | Emergency Department Report ---
[place] [facility] - Documentation Documentation: 64-year-old -[place] female [facility] patient with past m edical history of end-stage renal disease diabetes and hypertension presents emerged department complaining of chest pain which interrupted her dialysis session today to the point where she did not receive the dialysis. She reports no palliative or provocative factors at current. Currently of sound mind and judgment speaking in full sentences with no shortness of breath apparent This initial assessment/diagnostic orders/clinical plan/treatment(s) is/are subject to change based on patients health status, clinical progression and re- assessment by fellow clinical providers in the ED. Further treatment and workup at subsequent clinical providers discretion. Patient/guardian urged not to elope from the ED as their condition may be serious if not clinically assessed and managed. Initial orders include: ED cardiac eval also will evaluate her ill electrolytes and the need for any in- house/emergent dialysis
[2020-08-26 15:41] LABS: Hematocrit 30.9 % (30.3-42.9); Hemoglobin 10.3 gm/dl (10.1-14.3); INR 0.92 (0.87-1.13); Lymphocytes % (Auto) 12.5 % (13.4-35.0); Mean Corpuscular HGB Conc 33 % (30-34); Mean Corpuscular Volume 89 fl (79-97); Platelet Count 261 K/mm3 (140-440); Red Blood Count 3.46 M/mm3 (3.65-5.03); Red Cell Distribution Width 16.4 % (13.2-15.2)
[2020-08-26 15:42] LABS: Basophils % (Auto) 0.1 % (0.0-1.8); Eosinophils # (Auto) 0.1 K/mm3 (0.0-0.4); Eosinophils % (Auto) 1.3 % (0.0-4.3); Lymphocytes # (Auto) 0.8 K/mm3 (1.2-5.4); Monocytes # (Auto) 0.5 K/mm3 (0.0-0.8); Monocytes % (Auto) 8.3 % (0.0-7.3)
[2020-08-26 15:43] LABS: Basophils # (Auto) 0.1 K/mm3 (0.0-0.1)
[2020-08-26 15:52] LABS: Alanine Aminotransferase TNR units/L (7-56); Albumin TNR g/dL (3.9-5); BUN/Creatinine Ratio TNR; Blood Urea Nitrogen TNR mg/dL (7-17); Calcium TNR mg/dL (8.4-10.2)
[2020-08-26 15:53] LABS: Hemolysis Index TNR
--- NOTE | 2020-08-26 16:57 | XRay Report ---
CHEST 1 VIEW INDICATION / CLINICAL INFORMATION: Chest Pain. COMPARISON: 08/05/2020 FINDINGS: SUPPORT DEVICES: Stable device positioning. HEART / MEDIASTINUM: Stable. LUNGS / PLEURA: Diffuse interstitial haziness with some patchy consolidative change in the right faviola hilar region. Small bilateral pleural effusions. No pneumothorax. ADDITIONAL FINDINGS: No significant additional findings. IMPRESSION: 1. Findings suggestive of moderate vascular congestion/pulmonary edema. Signer Name: Kenny Emerson MD Signed: 08/26/2020 4:53 PM Workstation Name: [id number]
--- NOTE | 2020-08-27 06:49 | Emergency Department Report ---
HPI - General Chief Complaint: Medical Clearance Time Seen by Provider: 08/27/20 06:34 - HPI HPI: This is a 64-year-old -[place] female who presents to the emergency department via EMS from dialysis with the complaint of hypertension. The patient did not finish her dialysis treatment. Patient resides at [facility]. She has a past medical history of dementia, diabetes, hypertension, PVD, and end-stage renal disease on hemodialysis on Tuesday//Tuesday. The patient presents with paperwork from Ellie Pastrana. Her general internal medicine doctor is listed as Dr. Andrews. Unknown what the patient received at dialysis for her hypertension. However, this patient has been in the emergency department for close to 18 hours prior to my shift starting. At the time of my examination the patient has no physical complaints. ED Past Medical Hx - Past Medical History Previous Medical History?: Yes Hx Hypertension: Yes Hx Congestive Heart Failure: No Hx Diabetes: Yes Hx Renal Disease: Yes () Hx Asthma: No Hx COPD: No Hx Dementia: Yes Additional medical history: Dementia, PVD, Diabetes - Surgical History Past Surgical History?: Yes Additional Surgical History: right chest permcath - Social History Smoking Status: Never Smoker Substance Use Type: None - Medications Home Medications: Home Medications Medication Instructions Recorded Confirmed Last Taken Type LORazepam [Ativan] 1 mg PO Q8H PRN tablet 03/18/18 01/23/19 Unknown Rx Sevelamer Carbonate [Renvela] 800 mg PO AC tablet 03/18/18 01/23/19 Unknown Rx cloNIDine [Catapres] 0.1 mg PO Q8HR 01/15/19 01/23/19 Unknown History minoxidiL [Loniten] 2.5 mg PO BID 01/15/19 01/23/19 Unknown History hydrALAZINE [Apresoline TAB] 100 mg PO TID #90 tab 01/25/19 Unknown Rx ED Review of Systems ROS: Stated complaint: CHEST PAIN Other details as noted in HPI Comment: Unobtainable due to pts medical conditions Physical Exam - Physical Exam Vital Signs: Vital Signs 08/26/20 08/26/20 13:04 18:28 Temperature 97.3 F L 97.3 F L Pulse Rate 61 67 Respiratory 20 18 Rate Blood Pressure 188/103 Blood Pressure 198/116 [Right] O2 Sat by Pulse 95 100 Oximetry Physical Exam: GENERAL: The patient is well-developed well-nourished. HENT: Normocephalic. Atraumatic. Patient has moist mucous membranes. EYES: Extraocular motions are intact. NECK: Supple. Trachea is midline. CHEST/LUNGS: Clear to auscultation. There is no respiratory distress noted. HEART/CARDIOVASCULAR: Regular. There is no tachycardia. There is no murmur. ABDOMEN: Abdomen is soft, nontender. Patient has normal bowel sounds. SKIN: Skin is warm and dry. NEURO: The patient is awake, alert. No sensory or motor deficits. Normal speech. MUSCULOSKELETAL: There is no tenderness or deformity. ED Course Vital Signs 08/26/20 08/26/20 13:04 18:28 Temperature 97.3 F L 97.3 F L Pulse Rate 61 67 Respiratory 20 18 Rate Blood Pressure 188/103 Blood Pressure 198/116 [Right] O2 Sat by Pulse 95 100 Oximetry - Reevaluation(s) Reevaluation #1: 08/27/20 14:16 Lab Results 08/26/20 08/26/20 08/26/20 Range/Units 14:51 14:51 14:51 WBC 6.1 (4.5-11.0) K/mm3 RBC 3.46 L (3.65-5.03) M/mm3 Hgb 10.3 (10.1-14.3) gm/dl Hct 30.9 (30.3-42.9) % MCV 89 (79-97) fl MCH 30 (28-32) pg MCHC 33 (30-34) % RDW 16.4 H (13.2-15.2) % Plt Count 261 (140-440) K/mm3 Lymph % (Auto) 12.5 L (13.4-35.0) % [place] % (Auto) 8.3 H (0.0-7.3) % Eos % (Auto) 1.3 (0.0-4.3) % Baso % (Auto) 0.1 (0.0-1.8) % Lymph # (Auto) 0.8 L (1.2-5.4) K/mm3 [place] # (Auto) 0.5 (0.0-0.8) K/mm3 Eos # (Auto) 0.1 (0.0-0.4) K/mm3 Baso # (Auto) 0.1 (0.0-0.1) K/mm3 Add Manual Diff Complete Seg Neutrophils % 76.9 H (40.0-70.0) % Seg Neutrophils # 4.7 (1.8-7.7) K/mm3 PT 12.3 (12.2-14.9) Sec. INR 0.92 (0.87-1.13) Sodium TNR Potassium TNR Chloride TNR Carbon Dioxide TNR Anion Gap TNR BUN TNR Creatinine TNR Estimated GFR TNR BUN/Creatinine Ratio TNR Glucose TNR Calcium TNR Total Bilirubin TNR AST TNR ALT TNR Alkaline Phosphatase TNR Troponin T TNR Total Protein TNR Albumin TNR Albumin/Globulin Ratio TNR 08/27/20 Range/Units 06:36 WBC (4.5-11.0) K/mm3 RBC (3.65-5.03) M/mm3 Hgb (10.1-14.3) gm/dl Hct (30.3-42.9) % MCV (79-97) fl MCH (28-32) pg MCHC (30-34) % RDW (13.2-15.2) % Plt Count (140-440) K/mm3 Lymph % (Auto) (13.4-35.0) % [place] % (Auto) (0.0-7.3) % Eos % (Auto) (0.0-4.3) % Baso % (Auto) (0.0-1.8) % Lymph # (Auto) (1.2-5.4) K/mm3 [place] # (Auto) (0.0-0.8) K/mm3 Eos # (Auto) (0.0-0.4) K/mm3 Baso # (Auto) (0.0-0.1) K/mm3 Add Manual Diff Seg Neutrophils % (40.0-70.0) % Seg Neutrophils # (1.8-7.7) K/mm3 PT (12.2-14.9) Sec. INR (0.87-1.13) Sodium 134 L Potassium 7.2 H* Chloride 95.4 L Carbon Dioxide 20 L Anion Gap 26 BUN 88 H Creatinine 17.1 H Estimated GFR 2 BUN/Creatinine Ratio 5 Glucose 84 Calcium 9.4 Total Bilirubin 0.60 AST 17 ALT < 5 L Alkaline Phosphatase 59 Troponin T Total Protein 9.1 H Albumin 3.8 L Albumin/Globulin Ratio 0.7 - Consultations Consultation #1: 08/27/20 10:28 I spoke with the nurse practitioner for [facility]. They are aware of the patient's need for dialysis and her hyperkalemia with a potassium 7.2. They have been consulted and will dialyze the patient today. ED Medical Decision Making - Lab Data Result diagrams: 08/26/20 14:51 08/27/20 06:36 - EKG Data -: EKG Interpreted by Me EKG shows normal: sinus rhythm, axis, intervals (Slightly prolonged QT and QTc), QRS complexes (Q waves to the anteroseptal leads), ST-T waves Rate: bradycardia (57 bpm) - EKG Data When compared to previous EKG there are: changes noted (Current EKG has prolonged QT and QTC, otherwise unchanged) Interpretation: other (Sinus bradycardia at 57 bpm, normal axis, prolonged QT and QTc, Q waves to the anteroseptal leads. No ST elevation [place]) - Radiology Data Radiology results: image reviewed interpreted by me: Chest x-ray shows diffuse interstitial edema, pulmonary vascular congestion and small bilateral basilar pleural effusions. - Medical Decision Making This patient presented to the emergency department yesterday after she was unable to receive dialysis secondary to significant hypertension. This patient was brought back to the main emergency department and presented to me for evaluation shortly after my shift began this morning. The patient's CBC was mos tly unremarkable. The metabolic panel appeared to have been hemolyzed or not reportable. At first, the patient was noncompliant or cooperative for a redraw and further evaluation. However, after speaking with her sister on the phone she agreed for IV placement and labs to be redrawn. The metabolic panel came back showing significant hyperkalemia with a potassium of 7.2, a BUN of almost 90 and a creatinine of 17. The patient was given insulin, glucose, albuterol, calcium gluconate for hyperkalemia. Nephrology was contacted and consulted and will provide dialysis this morning or afternoon. The patient was accepted for admission by the hospitalist, Dr. Acevedo. Critical Care Time: Yes Critical care time in (mins) excluding proc time.: 35 Critical care attestation.: If time is entered above; I have spent that time in minutes in the direct care of this critically ill patient, excluding procedure time. Critical care time was spent on this patient in doing her initial evaluation, multiple reevaluations, ordering and interpretation of labs and imaging, multiple medications given for her significant hyperkalemia, discussion with the nephrology and hospitalist services. Critical Care Time: 35 minutes ED Disposition Clinical Impression: ESRD needing dialysis, Accelerated hypertension, Hyperkalemia Volume overload Qualifiers: Hypervolemia type: unspecified Qualified Code(s): E87.70 - Fluid overload, unspecified Disposition: 09 OP ADMIT IP TO THIS HOSP Is pt being admited?: Yes Condition: Serious Time of Disposition: 14:22
[2020-08-27] MEDS ORDERED: LORazepam 2 MG/ML VIAL IM ONE (06:50)
[2020-08-27 09:27] LABS: Albumin 3.8 g/dL (3.9-5); Blood Urea Nitrogen 88 mg/dL (7-17); Calcium 9.4 mg/dL (8.4-10.2); Hemolysis Index 1
[2020-08-27 09:28] LABS: Alanine Aminotransferase < 5 units/L (7-56); BUN/Creatinine Ratio 5
[2020-08-27] MEDS ORDERED: ALBUTEROL 2.5 MG/3 ML NEBU IH ONE (09:50)
[2020-08-27] MEDS ORDERED: INSULIN REGULAR, HUMAN 100 UNIT/ML 3ML VIAL IV SCH (10:00)
[2020-08-27] MEDS ORDERED: INSULIN REGULAR, HUMAN 100 UNITS/1 ML ONE (10:30)
[2020-08-27] MEDS: hydrALAZINE 100 MG TAB PO ONE ×2 (10:41→15:05)
[2020-08-27] MEDS: DEXTROSE 50% IN WATER (25GM) 50 ML SYRINGE IV ONE ×2 (10:41→11:02)
[2020-08-27] MEDS: CALCIUM GLUCONATE 1,000 MG in SODIUM CHLORIDE 0.9% 100 ML IV ONE ×2 (10:42→11:03)
--- NOTE | 2020-08-27 10:56 | History and Physical Report ---
History of Present Illness Date of examination: 08/27/20 Date of admission: 08/27/20 Chief complaint: missed HD History of present illness: This is a 64-year-old -[place] female with a past medical history of dementia, diabetes, hypertension, PVD, and end-stage renal disease on hemodialysis on Tuesday//Tuesday who presented to the emergency department via EMS from dialysis with the complaint of hypertension. The patient did not finish her dialysis treatment. Patient resides at [facility]. The patient presents with paperwork from Ellie Pastrana. Her claims correspondence clerk is listed as Dr. Andrews. ED record/[facility] reports patient ref used hemodialysis on and Tuesday and went for hemodialysis today but it was considered incomplete due to accelerated hypertension. ER physician reports that the patient has been in the emergency department for close to 18 hours prior to an evaluation. Patient was noted to to have a potassium of 7.2. The patient was called for admission with diagnosis of hyperkalemia, accelerated hypertension and missed hemodialysis. The patient is demented and unable to give any history. Patient denies any chest pain or shortness of breath. No headache or visual disturbances. No cough or cold-like symptoms. Past History Past Medical History: diabetes, dialysis, ESRD, hypertension, other (Dementia, PVD) Past Surgical History: Other (Unable to obtain due to mental status) Social history: no significant social history, other (Patient resides at [facility] all other social history unable to obtain due to mental) Family history: other (Unable to obtain due to mental status) Medications and Allergies Allergies Allergy/AdvReac Type Severity Reaction Status Date / Time No Known Allergies Allergy Verified 03/16/18 17:27 Home Medications Medication Instructions Recorded Confirmed Last Taken Type LORazepam [Ativan] 1 mg PO Q8H PRN tablet 03/18/18 01/23/19 Unknown Rx Sevelamer Carbonate [Renvela] 800 mg PO AC tablet 03/18/18 01/23/19 Unknown Rx cloNIDine [Catapres] 0.1 mg PO Q8HR 01/15/19 01/23/19 Unknown History minoxidiL [Loniten] 2.5 mg PO BID 01/15/19 01/23/19 Unknown History hydrALAZINE [Apresoline TAB] 100 mg PO TID #90 tab 05/09/19 Unknown Rx Active Meds: Active Medications Sodium Chloride (Nacl 0.9%) 100 mls @ 999 mls/hr IV JULIEN PRN PRN Reason: Hypotension Insulin Human Regular (Humulin R) 5 unit IV ONCE TONY Stop: 08/27/20 12:00 Last Admin: 08/27/20 10:42 Dose: 5 unit Documented by: Review of Systems ROS unobtainable: due to mental status Exam - Constitutional Vitals: Temp Pulse Resp BP Pulse Ox 97.3 F L 86 26 H 210/124 93 08/26/20 18:28 08/27/20 10:41 08/27/20 08:31 08/27/20 10:41 08/27/20 08:31 General appearance: Present: no acute distress, well-nourished - EENT Eyes: Present: PERRL ENT: hearing intact, clear oral mucosa - Neck Neck: Present: supple, normal ROM - Respiratory Respiratory effort: normal Respiratory: bilateral: CTA - Cardiovascular Heart Sounds: Present: S1 & S2. Absent: rub, click - Extremities Extremities: pulses symmetrical, No edema Peripheral Pulses: within normal limits - Abdominal General gastrointestinal: Present: soft, non-tender, non-distended, normal bowel sounds Female genitourinary: Present: normal - Integumentary Integumentary: Present: clear, warm, dry - Musculoskeletal Musculoskeletal: gait normal, strength equal bilaterally - Psychiatric Psychiatric: appropriate mood/affect, intact judgment & insight - Neurologic Neurologic: CNII-XII intact, moves all extremities HEART Score - HEART Score Troponin: Troponin T TNR 08/26/20 14:51 Results - Labs CBC & Chem 7: 08/26/20 14:51 08/27/20 06:36 Labs: Laboratory Last Values WBC 6.1 K/mm3 (4.5-11.0) 08/26/20 14:51 RBC 3.46 M/mm3 (3.65-5.03) L 08/26/20 14:51 Hgb 10.3 gm/dl (10.1-14.3) 08/26/20 14:51 Hct 30.9 % (30.3-42.9) 08/26/20 14:51 MCV 89 fl (79-97) 08/26/20 14:51 MCH 30 pg (28-32) 08/26/20 14:51 MCHC 33 % (30-34) 08/26/20 14:51 RDW 16.4 % (13.2-15.2) H 08/26/20 14:51 Plt Count 261 K/mm3 (140-440) 08/26/20 14:51 Lymph % (Auto) 12.5 % (13.4-35.0) L 08/26/20 14:51 [place] % (Auto) 8.3 % (0.0-7.3) H 08/26/20 14:51 Eos % (Auto) 1.3 % (0.0-4.3) 08/26/20 14:51 Baso % (Auto) 0.1 % (0.0-1.8) 08/26/20 14:51 Lymph # (Auto) 0.8 K/mm3 (1.2-5.4) L 08/26/20 14:51 [place] # (Auto) 0.5 K/mm3 (0.0-0.8) 08/26/20 14:51 Eos # (Auto) 0.1 K/mm3 (0.0-0.4) 08/26/20 14:51 Baso # (Auto) 0.1 K/mm3 (0.0-0.1) 08/26/20 14:51 Add Manual Diff Complete 08/26/20 14:51 Seg Neutrophils % 76.9 % (40.0-70.0) H 08/26/20 14:51 Seg Neutrophils # 4.7 K/mm3 (1.8-7.7) 08/26/20 14:51 PT 12.3 Sec. (12.2-14.9) 08/26/20 14:51 INR 0.92 (0.87-1.13) 08/26/20 14:51 Sodium 134 mmol/L (137-145) L 08/27/20 06:36 Potassium 7.2 mmol/L (3.6-5.0) H* 08/27/20 06:36 Chloride 95.4 mmol/L (98-107) L 08/27/20 06:36 Carbon Dioxide 20 mmol/L (22-30) L 08/27/20 06:36 Anion Gap 26 mmol/L 08/27/20 06:36 BUN 88 mg/dL (7-17) H 08/27/20 06:36 Creatinine 17.1 mg/dL (0.6-1.2) H 08/27/20 06:36 Estimated GFR 2 ml/min 08/27/20 06:36 BUN/Creatinine Ratio 5 % 08/27/20 06:36 Glucose 84 mg/dL (65-100) 08/27/20 06:36 Calcium 9.4 mg/dL (8.4-10.2) 08/27/20 06:36 Total Bilirubin 0.60 mg/dL (0.1-1.2) 08/27/20 06:36 AST 17 units/L (5-40) 08/27/20 06:36 ALT < 5 units/L (7-56) L 08/27/20 06:36 Alkaline Phosphatase 59 units/L (35-129) 08/27/20 06:36 Troponin T TNR 08/26/20 14:51 Total Protein 9.1 g/dL (6.3-8.2) H 08/27/20 06:36 Albumin 3.8 g/dL (3.9-5) L 08/27/20 06:36 Albumin/Globulin Ratio 0.7 % 08/27/20 06:36 [place]/IV: IV Catheter Type [Right INT / Saline Lock Forearm] Assessment and Plan Assessment and plan: ESRD. Patient with missed an incomplete hemodialysis. Patient will be maintained on hemodialysis per nephrology recommendations. Hyperkalemia. Hemodialysis per nephrology. Volume overload/pulmonary edema. Etiology secondary to missed hemodialysis. Follow-up serial chest x-ray. Accelerated hypertension. Resume patient's home antihypertensive medications. Also, add IV hydralazine for elevated BP. Consider adding Procardia if no improvement in blood pressure. Medical noncompliance. Diabetes mellitus type 2. Continue Accu-Cheks and sliding scale insulin.
[2020-08-27] MEDS ORDERED: SODIUM CHLORIDE 0.9% 100 ML IV PRN (11:00)
[2020-08-27] MEDS ORDERED: LORazepam 1 MG TAB PO PRN (12:00)
[2020-08-27] MEDS ORDERED: ONDANSETRON 4 MG/2 ML INJ IV PRN (12:00)
[2020-08-27] MEDS ORDERED: hydrALAZINE 20 MG/1 ML INJ IV PRN (12:00)
[2020-08-27] MEDS ORDERED: ACETAMINOPHEN 325 MG TAB PO PRN (12:00)
[2020-08-27] MEDS: SEVELAMER CARBONATE 800 MG TAB PO SCH (17:00)
--- NOTE | 2020-08-27 20:22 | Consultation ---
History of Present Illness - Reason for Consult Consult date: 08/27/20 end stage renal disease - History of Present Illness This is a 64-year-old woman with a past medical history of dementia, diabetes, hypertension, PVD, and end-stage renal disease on hemodialysis on Tuesday//Tuesday who presented to the emergency department via EMS from dialysis for hypertension. Per report, did not complete HD due to HTN, and has missed several HD sessions prior. Per report, patient was in ED for 18 hours and evaluation showed K of 7.2, high BP. Patient usually dialyzes at [facility]. Patient is seen after completing HD, no issues noted per patient or dialysis nurse. Patient drowsy at time of consult as she "was up all night". Denies any acute issues. Past History Past Medical History: diabetes, dialysis, ESRD, hypertension, other (Dementia, PVD) Past Surgical History: Other (Unable to obtain due to mental status) Social history: no significant social history, other (Patient resides at [facility] all other social history unable to obtain due to mental) Family history: other (Unable to obtain due to mental status) Medications and Allergies Allergies Allergy/AdvReac Type Severity Reaction Status Date / Time No Known Allergies Allergy Verified 03/16/18 17:27 Home Medications Medication Instructions Recorded Confirmed Last Taken Type LORazepam [Ativan] 1 mg PO Q8H PRN tablet 03/18/18 01/23/19 Unknown Rx Sevelamer Carbonate [Renvela] 800 mg PO AC tablet 03/18/18 01/23/19 Unknown Rx cloNIDine [Catapres] 0.1 mg PO Q8HR 01/15/19 01/23/19 Unknown History minoxidiL [Loniten] 2.5 mg PO BID 01/15/19 01/23/19 Unknown History hydrALAZINE [Apresoline TAB] 100 mg PO TID #90 tab 01/25/19 Unknown Rx Active Meds: Active Medications Acetaminophen (Tylenol) 650 mg PO Q4H PRN PRN Reason: Pain MILD(1-3)/Fever >100.5/RITTER Clonidine HCl (Catapres) 0.1 mg PO Q8HR TONY Heparin Sodium (Porcine) (Heparin) 5,000 unit SUB-Q Q12HR TONY Hydralazine HCl (Apresoline) 100 mg PO TID TONY Hydralazine HCl (Apresoline) 10 mg IV Q6H PRN PRN Reason: Blood Pressure Sodium Chloride (Nacl 0.9%) 100 mls @ 999 mls/hr IV JULIEN PRN PRN Reason: Hypotension Lorazepam (Ativan) 1 mg PO Q8H PRN PRN Reason: Agitation Minoxidil (Loniten) 2.5 mg PO BID TONY Ondansetron HCl (Zofran) 4 mg IV Q8H PRN PRN Reason: Nausea And Vomiting Sevelamer Carbonate (Renvela) 800 mg PO AC TONY Last Admin: 08/27/20 17:00 Dose: Not Given Documented by: Sodium Chloride (Sodium Chloride Flush Syringe 10 Ml) 10 ml IV BID TONY Sodium Chloride (Sodium Chloride Flush Syringe 10 Ml) 10 ml IV PRN PRN PRN Reason: LINE FLUSH Stop: 09/11/20 11:29 Review of Systems All systems: negative (as per HPI) Exam - Vital Signs Vital signs: Vital Signs Temp Pulse Resp BP Pulse Ox 97.3 F L 61 20 188/103 95 08/26/20 13:04 08/26/20 13:04 08/26/20 13:04 08/26/20 13:04 08/26/20 13:04 - Physical Exam Narrative exam: Constitutional: no acute distress Head: NC/AT Neck: supple Lungs: clear to auscultation CV: RRR, no M/R/G Abdomen: soft, non-tender, bowel sounds present Back: nontender Extremities: no edema, pulses WNL Skin: intact Neuro: no focal deficits, baseline dementia noted Results - Lab Results 08/26/20 14:51 08/27/20 06:36 Most recent lab results Calcium 9.4 mg/dL (8.4-10.2) 08/27/20 06:36 Assessment and Plan This is a 64 year old who presents with HTN, missed HD # ESRD: HD today for volume control, hyperkalemia; assess HD needs daily and plan to maintain outpatient // regimen once able - daily labs - renally dose meds - avoid nephrotoxins - renal diet # Anemia: last hemoglobin >10, no indication for ESAs # HTN: UF as tolerated. BP much improved s/p HD, was >200 systolic on arrival # Secondary Hyperparathyroidism: continue home binders as needed
[2020-08-27] MEDS: hydrALAZINE 100 MG TAB PO SCH (21:49)
[2020-08-27] MEDS: MINOXIDIL 2.5 MG TAB PO SCH (21:49)
[2020-08-27] MEDS: cloNIDine 0.1 MG TAB PO SCH (21:50)
[2020-08-27] MEDS: HEPARIN 5,000 UNIT/1 ML VIAL SUB-Q SCH (21:51)
[2020-08-28 06:26] LABS: Basophils % (Auto) 0.8 % (0.0-1.8); Eosinophils # (Auto) 0.2 K/mm3 (0.0-0.4); Eosinophils % (Auto) 3.8 % (0.0-4.3); Hematocrit 29.5 % (30.3-42.9); Hemoglobin 9.8 gm/dl (10.1-14.3); Lymphocytes # (Auto) 0.7 K/mm3 (1.2-5.4); Lymphocytes % (Auto) 17.8 % (13.4-35.0); Mean Corpuscular HGB Conc 33 % (30-34); Mean Corpuscular Volume 88 fl (79-97); Monocytes # (Auto) 0.6 K/mm3 (0.0-0.8); Monocytes % (Auto) 14.3 % (0.0-7.3); Platelet Count 246 K/mm3 (140-440); Red Blood Count 3.38 M/mm3 (3.65-5.03); Red Cell Distribution Width 16.5 % (13.2-15.2)
[2020-08-28 06:27] LABS: Calcium 9.3 mg/dL (8.4-10.2)
[2020-08-28] MEDS ORDERED: SODIUM CHLORIDE 0.9% 100 ML IV PRN ×2 (08:00→16:28)
--- NOTE | 2020-08-28 10:04 | Discharge Summary ---
Providers - Providers Date of Admission: 08/27/20 11:17 Date of discharge: 08/28/20 Attending physician: HARPER OSHEA 08/27/20 09:55 Consult to Physician [CONS] Routine Comment: Consulting Provider: DUNIA ANDREWS Physician Instructions: Reason For Exam: dialysis, hyperkalemia Primary care physician: GEAR TESTER Hospitalization Reason for admission: missed HD Condition: Serious Hospital course: This is a 64-year-old -[place]gar[place] female with a past medical history of dementia, diabetes, hypertension, PVD, and end-stage renal disease on hemodialysis on Tuesday//Tuesday who presented to the emergency department via EMS from dialysis with the complaint of hypertension. The patient did not finish her dialysis treatment. Patient resides at [facility]. Her grinding supervisor is listed as Dr. Andrews. ED record/[facility] reports patient refused hemodialysis on and Tuesday and went for hemodialysis today but it was considered incomplete due to accelerated hypertension. ER physician reports that the patient has been in the emergency department for close to 18 hours prior to an evaluation. Patient was noted to to have a potassium of 7.2. The patient was admitted with diagnosis of hyperkalemia, accelerated hypertension, volume overload/pulmonary edema, medical noncompliance and missed hemodialysis. The patient received hemodialysis and nephrology saw the patient in consultation. Patient's volume overload/pulmonary edema resolved with hemodialysis. Patient was restarted on her blood pressure medication and blood pressure stabilized. The patient received 1 hemodialysis session during hospitalization but refused a second hemodialysis session today. I have further conversations regarding her medical noncompliance with patient remains reluctant. I discussed hospice given her refusal for hemodialysis which she was amenable. Patient may have hospice evaluation at [facility] and can discharge today. I discussed with case management plan for hospice at [facility]. Dedicated discharge time 35 minutes. Disposition: [id number] SNF [facility] Time spent for discharge: 35 - Discharge Diagnoses (1) Pulmonary edema, noncardiac Status: Acute (2) Accelerated hypertension Status: Acute (3) ESRD needing dialysis Status: Acute (4) Hyperkalemia Status: Acute (5) Diabetes Status: Acute (6) ESRD on dialysis Status: Chronic Core Measure Documentation - Palliative Care Palliative Care/ Comfort Measures: Not Applicable - Core Measures Any of the following diagnoses?: none Exam - Constitutional Vitals: Temp Pulse Resp BP Pulse Ox 99.5 F 87 50 H 144/87 100 08/28/20 06:53 08/28/20 06:53 08/28/20 06:53 08/28/20 06:53 08/28/20 06:53 General appearance: Present: no acute distress, well-nourished - EENT Eyes: Present: PERRL ENT: hearing intact, clear oral mucosa - Neck Neck: Present: supple, normal ROM - Respiratory Respiratory effort: normal Respiratory: bilateral: CTA - Cardiovascular Heart Sounds: Present: S1 & S2. Absent: rub, click - Extremities Extremities: pulses symmetrical, No edema Peripheral Pulses: within normal limits - Abdominal General gastrointestinal: Present: soft, non-tender, non-distended, normal bowel sounds Female genitourinary: Present: normal - Integumentary Integumentary: Present: clear, warm, dry - Musculoskeletal Musculoskeletal: gait normal, strength equal bilaterally - Psychiatric Psychiatric: appropriate mood/affect, intact judgment & insight - Neurologic Neurologic: CNII-XII intact, moves all extremities Plan Activity: advance as tolerated Weight Bearing Status: Weight Bear as Tolerated Diet: renal Follow up with: PRIMARY CAREMD [Primary Care Provider] - 3-5 Days
[2020-08-28] MEDS: SEVELAMER CARBONATE 800 MG TAB PO SCH ×4 (10:27→21:43)
[2020-08-28] MEDS: MINOXIDIL 2.5 MG TAB PO SCH ×2 (10:27→21:42)
[2020-08-28] MEDS: hydrALAZINE 100 MG TAB PO SCH ×4 (10:27→21:42)
[2020-08-28] MEDS: HEPARIN 5,000 UNIT/1 ML VIAL SUB-Q SCH ×2 (10:28→21:42)
--- NOTE | 2020-08-28 12:15 | Progress Note ---
Assessment and Plan This is a 64 year old who presents with HTN, missed HD # ESRD: HD yesterday for volume control, hyperkalemia; ordered HD today to resume outpatient // HD but patient refusing. Reviewed with outpatient HD unit, based on labs and volume exam today, can go to HD per usual at outpatient center on 08/30 - daily labs - renally dose meds - avoid nephrotoxins - renal diet # Anemia: last hemoglobin >10, no indication for ESAs # HTN: UF as tolerated. BP much improved s/p HD, was >200 systolic on arrival # Secondary Hyperparathyroidism: continue home binders as needed Subjective Date of service: 08/28/20 Interval history: Sleeping this AM, refused HD Objective - Exam Narrative Exam: Constitutional: no acute distress Head: NC/AT Neck: supple Lungs: clear to auscultation CV: RRR, no M/R/G Abdomen: soft, non-tender, bowel sounds present Back: nontender Extremities: no edema, pulses WNL Skin: intact Neuro: no focal deficits, baseline dementia noted - Vital Signs Vital signs: Vital Signs - 12hr 08/28/20 08/28/20 01:05 06:53 Temperature 99.1 F 99.5 F Pulse Rate 92 H 87 Respiratory 20 50 H Rate Blood Pressure 119/61 144/87 [Right] O2 Sat by Pulse 99 100 Oximetry - Lab 08/28/20 04:00 08/28/20 04:00 Most recent lab results Calcium 9.3 mg/dL (8.4-10.2) 08/28/20 04:00 Medications & Allergies - Medications Allergies/Adverse Reactions: Allergies No Known Allergies Allergy (Verified 03/16/18 17:27) Home Medications: Home Medications Medication Instructions Recorded Confirmed Last Taken Type LORazepam [Ativan] 1 mg PO Q8H PRN tablet 03/18/18 01/23/19 Unknown Rx Sevelamer Carbonate [Renvela] 800 mg PO AC tablet 03/18/18 01/23/19 Unknown Rx cloNIDine [Catapres] 0.1 mg PO Q8HR 01/15/19 01/23/19 Unknown History minoxidiL [Loniten] 2.5 mg PO BID 01/15/19 01/23/19 Unknown History hydrALAZINE [Apresoline TAB] 100 mg PO TID #90 tab 01/25/19 Unknown Rx Acetaminophen [Acetaminophen TAB] 650 mg PO Q4H PRN tablet 08/28/20 Unknown Rx LORazepam [Ativan] 1 mg PO Q8H PRN tablet 08/28/20 Unknown Rx Sevelamer Carbonate [Renvela] 800 mg PO AC tablet 08/28/20 Unknown Rx cloNIDine [Catapres] 0.1 mg PO Q8HR tablet 08/28/20 Unknown Rx hydrALAZINE [Apresoline TAB] 100 mg PO TID tab 08/28/20 Unknown Rx minoxidiL [Loniten] 2.5 mg PO BID tablet 08/28/20 Unknown Rx Active Medications: Generic Name Dose Route Start Last Admin Trade Name Freq PRN Reason Stop Dose Admin Acetaminophen 650 mg 08/27/20 12:00 Tylenol PO Q4H PRN Pain MILD(1-3)/Fever >100.5/RITTER Clonidine HCl 0.1 mg 08/27/20 14:00 08/27/20 21:50 Catapres PO 0.1 mg Q8HR TONY Administration Heparin Sodium (Porcine) 5,000 unit 08/27/20 22:00 08/28/20 10:28 Heparin SUB-Q 5,000 unit Q12HR TONY Administration Hydralazine HCl 100 mg 08/27/20 14:00 08/28/20 10:27 Apresoline PO 100 mg TID TONY Administration Hydralazine HCl 10 mg 08/27/20 12:00 Apresoline IV Q6H PRN Blood Pressure Sodium Chloride 100 mls @ 999 mls/hr 08/28/20 08:00 Nacl 0.9% IV JULIEN PRN Hypotension Lorazepam 1 mg 08/27/20 12:00 Ativan PO Q8H PRN Agitation Minoxidil 2.5 mg 08/27/20 22:00 08/28/20 10:27 Loniten PO 2.5 mg BID TONY Administration Ondansetron HCl 4 mg 08/27/20 12:00 Zofran IV Q8H PRN Nausea And Vomiting Sevelamer Carbonate 800 mg 08/27/20 11:30 08/28/20 10:27 Renvela PO 800 mg AC TONY Administration Sodium Chloride 10 ml 08/27/20 22:00 08/28/20 10:32 Sodium Chloride Flush Syringe 10 Ml IV 10 ml BID TONY Administration Sodium Chloride 10 ml 08/27/20 11:30 Sodium Chloride Flush Syringe 10 Ml IV 09/11/20 11:29 PRN PRN LINE FLUSH
[2020-08-28] MEDS: cloNIDine 0.1 MG TAB PO SCH ×3 (13:05→21:42)
[2020-08-29] MEDS: cloNIDine 0.1 MG TAB PO SCH (05:05)
[2020-08-29 08:19] VITALS: BP 195/112
== END 2020-08-29 09:40 | DRG 640 ==
LOC: ED 12:28 → 4A 08-27 11:17
PROVIDERS: ADMIT Hospitalist; ATTEND Hospitalist
PROC: 5A1D70Z Performance of Urinary Filtration, Intermittent, Less than 6 Hours Per Day (ICD-10-PCS; principal; 2020-08-27)
DX: E87.5 Hyperkalemia (principal); N18.6 End stage renal disease; I12.0 Hypertensive chronic kidney disease with stage 5 chronic kidney disease or end stage renal disease; E11.22 Type 2 diabetes mellitus with diabetic chronic kidney disease; F03.90 Unspecified dementia, unspecified severity, without behavioral disturbance, psychotic disturbance, mood disturbance, and anxiety; I73.9 Peripheral vascular disease, unspecified; D64.9 Anemia, unspecified; Z79.899 Other long term (current) drug therapy; Z99.2 Dependence on renal dialysis; Z79.891 Long term (current) use of opiate analgesic; Z79.01 Long term (current) use of anticoagulants; Z79.4 Long term (current) use of insulin; Z91.19 Patient's noncompliance with other medical treatment and regimen
CPT/HCPCS: 36415; 71045; 80048; 80053; 82962; 85025; 85610; 90471; 93005; 96372; G0378; J0610; J1644; J1815; J2060